=== PATIENT | female | born 1970 | race Caucasian/White ===

== ENCOUNTER → 2017-11-13 11:43 | Outpatient (CLI) | payer BC, SELFPAY ==
[2017-11-13 12:16] LABS: Absolute Lymphocyte Count 1.92 X10^3/ul (0.83-4.51); Absolute Neutrophil Count 3.3 X10^3/uL (2.0-7.7); Basophil# 0.01 X10^3/uL; Basophil% 0.2 % (0-1); Eosinophil# 0.07 X10^3/uL; Eosinophils% 1.2 % (0-5); Hemoglobin 13.6 g/dl (12.0-15.0); Lymphocyte # 1.92 X10^3/ul (4.0); Lymphocyte % 33.3 % (19-41); Mean Corp Hgb Conc 33.2 g/gl (32-36); Mean Corpuscular Hgb 27.9 pg (27.0-32.0); Mean Corpuscular Volume 84.2 fL (81-99); Mean Platelet Vol. 9.5 fl (6.2-12.0); Monocyte# 0.49 X10^3/uL; Monocyte% 8.5 % (0-10); Neutrophil # 3.26 X10^3/uL (2.7-7.7); Neutrophil % 56.6 % (47-70); Platelet Count 333 K/mm3 (150-450); RBC Distribution Width CV 13.8 % (11.6-14.6); RBC Distribution Width SD 42.3 fl (35.1-43.9); Red Blood Count 4.87 M/mm3 (4.2-5.4); White Blood Count 5.8 K/mm3 (4.4-11.0)
[2017-11-13 12:21] LABS: POSITIVE COUNT NO; POSITIVE DIFFERENTIAL NO; POSITIVE MORPHOLOGY NO
[2017-11-13 13:02] LABS: ALB/GLOB Ratio 0.8 RATIO (0.9-2.4); AST(SGOT) 16 U/L (15-37); Alanine Aminotransfer ALT/SGPT 12 U/L (13-56); Albumin, Serum 3.4 g/dL (3.2-5.0); Alkaline Phosphatase 87 U/L (45-117); Anion Gap 10 (5-15); BUN 16 mg/dL (7-18); BUN/Creat Ratio 23.9 RATIO (10-20); Calcium,Total 8.8 mg/dL (8.5-10.1); Chloride 105 mmol/L (98-107); Cholesterol 226 mg/dL (200); Creatinine, Serum 0.67 mg/dL (0.55-1.02); EST Glomerular Filtration Rate 100 mL/min (>60); Est Glom Filt Rate - Afr Amer 121 mL/min (>60); Glucose 85 mg/dL (74-106); High Density Lipoprotein 49 mg/dL; Potassium 4.7 mmol/L (3.5-5.1); Protein, Total 7.4 g/dL (6.4-8.2); Sodium Level 143 mmol/L (136-145); Thyroid Stim Hormone (TSH) 1.72 uIU/mL (0.358-3.74); Triglycerides 170 mg/dL; Very Low Density Lipoprotein 34 mg/dL (5-40)
== END ==
PROVIDERS: Family Provider Family Medicine; PCP Family Medicine; Visit Provider Family Medicine
DX: K59.09 Other constipation (principal); R53.83 Other fatigue; E78.5 Hyperlipidemia, unspecified
CPT/HCPCS: 36415; 80053; 80061; 84443; 85025

== ENCOUNTER → 2017-12-26 14:27 | Outpatient (CLI) | payer BC, SELFPAY ==
--- NOTE | 2017-12-26 14:29 | CT_ITS ---
STUDY: CT ABDOMEN AND PELVIS WITHOUT CONTRAST REASON FOR EXAM: Female, 47 years old. Possible kinked ureter on the right. RADIATION DOSAGE (If Supplied By Facility): CTDIvol = ( 10.97 ) mGy, DLP = ( 600.16 ) mGycm TECHNIQUE: Transaxial images were obtained from the dome of the diaphragm to the symphysis pubis without oral contrast, and without intravenous contrast. Sagittal and coronal images were reconstructed. Individualized dose optimization techniques were used for this CT. COMPARISON: X-ray abdomen and pelvis 02/20/2013 FINDINGS: Body wall soft tissues: No acute process. Osseous structures: No acute process. Inferior chest: No acute process. Hepatobiliary: Normal. Pancreas: No acute process. Spleen: Normal. Adrenal glands: Normal. Urogenital: Slight malrotation of the right kidney. There are 2 nonobstructing calyceal calculi of the right kidney in the mid polar and inferior pole calyces, the largest measuring 4.5 x 3 mm. There are no retained calculi in the left kidney. There is a simple appearing parapelvic cyst of the left kidney measuring 2 cm in diameter. Bilaterally nondilated collecting systems. Nondilated left ureter, normal course. Nondilated right ureter, normal course. Both right and left ureters pass under the gonadal veins in their proximal 3rd, normal anatomy. Normal urinary bladder, anteverted uterus, bilateral ovaries. Pelvic floor and sidewalls and retroperitoneum: No mass or adenopathy. Vasculature: No acute process. Stomach: No acute process. Small bowel and mesentery: No acute process. Large bowel: Normal appendix. Normal large bowel and rectum. Free fluid or free air: None. CT/Abdomen/Pelvis without Cont IMPRESSION: Malrotated right kidney. No evidence of ureteral obstruction or kinking. Nonobstructing calyceal calculi of the right kidney. None on the left. No evidence of recent calculus passage. No other acute abdominopelvic process. Electronically Signed: Chencho Garces, at 17:41 EDT Tel , Service support ,
== END ==
PROVIDERS: Family Provider Family Medicine; PCP Family Medicine; Referring Provider Family Medicine; Visit Provider Family Medicine
DX: N20.0 Calculus of kidney (principal)
CPT/HCPCS: 74176

== ENCOUNTER 2018-01-18 10:57 | Day surgery (SDC) | payer BC, SELFPAY ==
[2018-01-18] VITALS (13 sets, daily range): BP systolic 91–114; BP diastolic 59–80; PULSE 61–90; RESP 14–18; TEMP 36–37.3; O2SAT 92–100; BMI 30.1
[2018-01-18 11:23] LABS: Internal QC Validated? YES +Cl - CLEAR BKGD; Pregnancy, Urine Negative Negative
[2018-01-18 11:33] LABS: Mean Corp Hgb Conc 31.8 g/gl (32-36); Mean Corpuscular Hgb 27.6 pg (27.0-32.0); Mean Corpuscular Volume 86.8 fL (81-99); Mean Platelet Vol. 9.5 fl (6.2-12.0); Platelet Count 230 K/mm3 (150-450); RBC Distribution Width CV 14.1 % (11.6-14.6); RBC Distribution Width SD 44.1 fl (35.1-43.9); Red Blood Count 5.07 M/mm3 (4.2-5.4); White Blood Count 6.8 K/mm3 (4.4-11.0)
[2018-01-18 11:34] LABS: Scan Indicated on CBC? Y/N NO
--- NOTE | 2018-01-18 11:50 | EMB_PTH ---
PATIENT: EDVIN SOTO LOC: [facility] [place] U#:[id number] AGE/SX: 47/F ROOM: RE01/18/[address]: Dr. Cary Glass DO : 1970 BED: DIS: 01/18/2018 SPEC #: [id number] RECD: 01/18/18 15:56 STATUS: IRON CRISTINE #: [id number] JAK: 01/18/18 11:[address]: Cary Glass DEPT: SURGICAL PATHOLOGY RECD BY: Chencho Garcia ENTERED: 01/19/18 13:40 SP TYPE: ENDOM BX/C CHAU DR: Dr. Hector Martínez, Tissues: Endometrium, NOS Procedures: Surgery Specimen Level IV HEADER OPERATION: Hysteroscopy, D&C, Talia PRE-OP DIAGNOSIS: Menorrhagia TISSUE SUBMITTED: Endometrial curettings MICROSCOPIC DIAGNOSIS Endometrial curettings: Disordered proliferative endometrium. Fragments of benign ecto- and endocervical epithelium. SJ:shreyas 01/22/18 MICROSCOPIC DESCRIPTION Slides are reviewed. GROSS DESCRIPTION Received in fixative is one container labeled with the patient's name and designated endometrial curettings. The specimen consists of multiple irregular fragments of zheng soft tissue mixed with blood clot that in aggregate measure 4 x 3 x 0.3 cm. The entire specimen is submitted in two cassettes. / KATHRINE:shreyas 01/19/18 TC:5 CPT: 50610
--- NOTE | 2018-01-18 13:09 | DCINST_ITS ---
Discharge Diet: No Restrictions Discharge Activity: May not drive while taking narcotic pain medications., May Shower, - - No tub baths Return to work on:: 01/22/18 May resume sexual activity in: 1-2 weeks Weight Bearing Status: Weight bearing as tolerated Lifting Restrictions: None Call your doctor if you observe: Fever of 101 or Higher, Inability to urinate, Inability to have a bowel movement, Using more than one pad per hour, Shortness of breath, Dizziness, Chest pain, Increased palpitations (irregular heartbeat), Calf discomfort, Uncontrolled pain Allergies/Adverse Reactions: Allergies latex Allergy (Intermediate, Verified 01/12/18 14:39) rash Penicillins Allergy (Verified 01/12/18 14:39) Swelling Medications to take at Discharge Ferrous Sulfate [Iron] 325 mg PO DAILY 01/12/18 Magnesium Oxide [Magnesium] 500 mg PO DAILY 01/12/18 Primary Care Physician: Hector Martínez DO [Primary Care Provider] - Test Results: Test results from this visit will be discussed in further detail at your follow- up appointment, if applicable. Please Follow Up With: Cary Glass DO When: 1-2 weeks
--- NOTE | 2018-01-18 13:53 | EKG12_ITS ---
Test Reason : POSTOP Blood Pressure : / mmHG Vent. Rate : 071 BPM Atrial Rate : 071 BPM P-R Int : 164 ms QRS Dur : 082 ms QT Int : 438 ms P-R-T Axes : 056 025 032 degrees QTc Int : 475 ms Normal sinus rhythm Normal ECG When compared with ECG of 29-MAR-2017 15:53, No significant change was found Confirmed by CONNER QUINN, ALBER ([id number]), film editor supervisor NEYMAR SCHUSTER ([id number]) on 01/26/2018 2:31:30 PM Referred By: Cary Glass Confirmed By:ALBER PRIETO MD
--- NOTE | 2018-01-18 14:30 | PCM.OP.BLANK ---
Problem List (1) Menorrhagia Status: Acute Operative Report Date of Procedure: 01/18/18 Procedure: Hysteroscopy, D&C, Talia ablation Preop diagnosis: Menorrhagia Postop diagnosis: Menorrhagia Surgeon: Cary Glass DO Anesthesia: MAC Estimated blood loss: Minimal, less than 50 cc Specimens removed: Endometrial curettings Complications: None Findings: Normal uterine cavity Indications: Pt is a 47-year-old with a history of menorrhagia for 5-6 years. Her had a vasectomy. Discussed conservative treatment options for the menorrhagia and patient declined. Discussed uterine ablation and patient desired to proceed with uterine ablation. Reviewed risks, benefits, and alternatives of an ablation and patient was fully consented. Patient understands also that she should not become after an ablation, so if she has a change in partners she needs to call to discuss a tubal ligation for control. Procedure: Patient was taken to the operating room where MAC anesthesia was found to be adequate. She was prepped and draped in the dorsal lithotomy position using yellowfin stirrups. Bimanual exam noted a midline, mobile, nonenlarged uterus. A weighted speculum was placed to expose the cervix. A single-tooth tenaculum was placed on the anterior lip of the cervix. The uterus sounded to 9 cm. The cervical length was 4.5 cm. The cervix was serially dilated to accommodate the hysteroscope. The hysteroscope was then introduced into the uterine cavity and the uterus was distended with normal saline fluid. The cavity was examined and found to be normal without polyps. Bilateral tubal ostia were visualized. The scope was then removed. A sharp curettage was then introduced into the cavity and a curettage was performed. The sample was sent to pathology for review. The Talia device was then set to the correct cavity length. The device was introduced into the uterine cavity. After adequate burn, the device was removed. The single-tooth tenaculum was removed from the cervix and hemostasis was noted. The weighted speculum was removed from the vagina. Instrument counts were correct. The patient tolerated procedure well and was sent to recovery room in stable condition.
--- NOTE | 2018-01-18 15:05 | RAD_ITS ---
STUDY: X-RAY CHEST REASON FOR EXAM: Female, 47 years old. Upper abdominal and chest pain TECHNIQUE: PA and lateral views of the chest. COMPARISON: 03/29/2017 FINDINGS: The lungs are clear and expanded. There is no demonstrated pleural abnormality. Normal size heart. Normal mediastinum and nimesh. Normal visualized pulmonary arteries. Normal visualized aortic arch and descending thoracic aorta. Normal visualized thoracic spine. Normal visualized ribs, clavicles, and shoulders. There is no demonstrated abnormality of the visualized soft tissue structures of the upper abdomen. RAD/Chest PA and Lateral IMPRESSION: No acute pulmonary process Electronically Signed: Velasquez Stephen MD at 16:00 EST , Service support ,
[2018-01-18] MEDS: HYDROcodone Bitartrate/Apap 5/325 Tablet PO (15:29)
== END 2018-01-18 16:48 | disposition home or self-care (01) ==
LOC: SDC 10:58 → AC 10:59
PROVIDERS: Anesthesiology; Family Provider Family Medicine; PCP Family Medicine; Referring Provider Obstetrics & Gynecology; Visit Provider Obstetrics & Gynecology
PROC: 0U5B8ZZ Destruction of Endometrium, Via Natural or Artificial Opening Endoscopic (ICD-10-PCS; CPT 58558; principal; 2018-01-18 11:35)
DX: N92.1 Excessive and frequent menstruation with irregular cycle (principal); N93.9 Abnormal uterine and vaginal bleeding, unspecified; Z79.899 Other long term (current) drug therapy; Z87.442 Personal history of urinary calculi
CPT/HCPCS: 58563; 36415; 71046; 81025; 84484; 85027; 86850; 86900; 88305; 93005; J7120; J2405

== ENCOUNTER → 2018-03-05 11:02 | Outpatient (CLI) | payer BC, SELFPAY ==
[2018-02-21 16:41] VITALS: BMI 30.1
--- NOTE | 2018-03-05 11:05 | RAD_ITS ---
STUDY: X-RAY - LUMBAR SPINE REASON FOR EXAM: Female, 47 years old. Back pain. TECHNIQUE: 3 view(s) of the lumbar spine were obtained. COMPARISON: None FINDINGS: Normal lumbar lordosis. There is no substantial scoliosis. There is a normal alignment of the vertebrae. Normal vertebral bodies and endplates. There is multi-level degenerative disc disease with multi-level disc space narrowing. There is no evidence of acute fracture or loss of vertebral axial height. The soft tissue structures are unremarkable. RAD/Lumbar Spine 2 or 3 Views IMPRESSION: Degenerative changes of the spine, as detailed above. Electronically Signed: Abhi Carmen DO at 22:10 EST Tel [phone], Service support ,
--- NOTE | 2018-03-05 11:07 | RAD_ITS ---
STUDY: X-RAY - THORACIC SPINE REASON FOR EXAM: Female, 47 years old. Back pain, kidney stones TECHNIQUE: 3 view(s) of the thoracic spine were obtained. COMPARISON: None. FINDINGS: Normal kyphosis of the thoracic spine. There is 12 degrees of dextroscoliosis centered at T7. There is multilevel endplate spondylosis of the thoracic vertebrae. There is multilevel disc space narrowing of the thoracic spine. The soft tissue structures are unremarkable. RAD/Thoracic Spine 2 Views IMPRESSION: Degenerative disc disease and scoliosis. No compression fracture. Electronically Signed: Ricardo Conde MD at 13:19 EST , Service support ,
== END ==
PROVIDERS: Family Provider Family Medicine; PCP Family Medicine; Referring Provider Family Medicine; Visit Provider Family Medicine
DX: M54.5 Low back pain (principal); G89.29 Other chronic pain
CPT/HCPCS: 72070; 72100

== ENCOUNTER → 2019-05-02 11:38 | Outpatient (CLI) | payer BC, SELFPAY ==
[2019-05-02 11:13] VITALS: BMI 30.1
[2019-05-02 12:33] LABS: Absolute Lymphocyte Count 1.84 X10^3/uL (0.83-4.51); Absolute Neutrophil Count 3.7 X10^3/uL (2.0-7.7); Basophil# 0.02 X10^3/uL; Basophil% 0.3 % (0-1); Eosinophil# 0.08 X10^3/uL; Eosinophils% 1.3 % (0-5); Hematocrit 42.1 % (37-47); Hemoglobin 13.6 g/dL (12.0-15.0); Lymphocyte # 1.84 X10^3/ul (4.0); Lymphocyte % 29.8 % (19-41); Mean Corp Hgb Conc 32.3 g/dL (32-36); Mean Corpuscular Hgb 27.6 pg (27.0-32.0); Mean Corpuscular Volume 85.6 fL (81-99); Mean Platelet Vol. 9.6 fl (6.2-12.0); Monocyte# 0.48 X10^3/uL; Monocyte% 7.8 % (0-10); NRBC Flagged by Analyzer 0 % (0-5); Neutrophil # 3.74 X10^3/uL (2.7-7.7); Neutrophil % 60.5 % (47-70); Platelet Count 269 K/mm3 (150-450); RBC Distribution Width CV 13.2 % (11.6-14.6); RBC Distribution Width SD 40.9 fl (35.1-43.9); Red Blood Count 4.92 M/mm3 (4.2-5.4); White Blood Count 6.2 K/mm3 (4.4-11.0)
[2019-05-02 13:02] LABS: ALB/GLOB Ratio 0.9 RATIO (0.9-2.4); AST(SGOT) 15 U/L (15-37); Alanine Aminotransfer ALT/SGPT 14 U/L (13-56); Albumin, Serum 3.6 g/dL (3.2-5.0); Alkaline Phosphatase 89 U/L (45-117); Anion Gap 4 (5-15); BUN 15 mg/dL (7-18); BUN/Creat Ratio 22.9 RATIO (10-20); Calcium,Total 9.2 mg/dL (8.5-10.1); Chloride 107 mmol/L (98-107); Cholesterol 247 mg/dL (200); Creatinine, Serum 0.66 mg/dL (0.55-1.02); EST Glomerular Filtration Rate 102 mL/min (>60); Est Glom Filt Rate - Afr Amer 124 mL/min (>60); Glucose 71 mg/dL (74-106); High Density Lipoprotein 59 mg/dL; Potassium 4.3 mmol/L (3.5-5.1); Protein, Total 7.6 g/dL (6.4-8.2); Sodium Level 141 mmol/L (136-145); Triglycerides 218 mg/dL; Very Low Density Lipoprotein 44 mg/dL (5-40)
== END ==
PROVIDERS: PCP Family Medicine; Referring Provider Family Medicine; Visit Provider Family Medicine
DX: K59.09 Other constipation (principal); E78.5 Hyperlipidemia, unspecified
CPT/HCPCS: 36415; 80053; 80061; 85025

== ENCOUNTER → 2020-06-09 13:52 | Outpatient (CLI) | payer OTHER, SELFPAY ==
[2020-06-09 13:15] VITALS: BMI 29.3
[2020-06-09 15:38] LABS: ALB/GLOB Ratio 0.9 RATIO (0.9-2.4); AST(SGOT) 17 U/L (15-37); Alanine Aminotransfer ALT/SGPT 14 U/L (13-56); Albumin, Serum 3.3 g/dL (3.2-5.0); Alkaline Phosphatase 100 U/L (45-117); Anion Gap 4 (5-15); BUN 15 mg/dL (7-18); BUN/Creat Ratio 21.1 RATIO (10-20); Calcium,Total 8.7 mg/dL (8.5-10.1); Chloride 106 mmol/L (98-107); Cholesterol 194 mg/dL (200); Creatinine, Serum 0.71 mg/dL (0.55-1.02); EST Glomerular Filtration Rate 92 mL/min (>60); Est Glom Filt Rate - Afr Amer 112 mL/min (>60); Globulin 3.7 g/dL (2.2-4.2); Glucose 81 mg/dL (74-106); High Density Lipoprotein 45 mg/dL; Potassium 3.2 mmol/L (3.5-5.1); Sodium Level 141 mmol/L (136-145); T4 Free Direct 1.13 ng/dL (0.76-1.46); Triglycerides 116 mg/dL; Very Low Density Lipoprotein 23 mg/dL (5-40)
== END ==
PROVIDERS: PCP Family Medicine; Referring Provider Family Medicine; Visit Provider Family Medicine
DX: K59.09 Other constipation (principal); E78.5 Hyperlipidemia, unspecified; F41.8 Other specified anxiety disorders
CPT/HCPCS: 36415; 80053; 80061; 84439

== ENCOUNTER → 2020-09-10 07:04 | Outpatient (CLI) | payer OTHER, SELFPAY ==
[2020-06-18 09:18] VITALS: BMI 30.1
--- NOTE | 2020-07-14 07:00 | HP_ITS ---
Intake Vital Signs 06/18/20 Height 5 ft 8 in 06/18/20 Weight: 198 lb 06/18/20 BMI 30.1 06/18/20 BP 105/74 06/18/20 Blood Pressure Location Lt brachial 06/18/20 Position Sitting 06/18/20 Respiration 16 06/18/20 Pulse 97 06/18/20 Pulse Source Monitor 06/18/20 Temp 97.6 F L 06/18/20 Temp Source Temporal 06/18/20 Pulse Oximetry (%) 96 06/18/20 Oxygen Delivery Method room air Intake Visit Reasons: CSCOPE, HISTORY OF CONSTIPATION Chief Complaint: Cscope- hx of chronic constipation Ore Grader Required: No Is patient in pain?: No Allergies latex Allergy (Intermediate, Verified 06/18/20 09:19) rash Penicillins Allergy (Verified 06/18/20 09:19) Swelling Medications Magnesium Oxide [Magnesium] 500 mg PO DAILY 01/12/18 [History Confirmed 06/18/20] nitrofurantoin monohydrate/macrocrystals 100 mg capsule 100 mg PO BID cap 06/18/20 [History Confirmed 06/18/20] [facility] Medical History Anxiety (Acute) Sleep apnea in adult (Chronic) Recurrent cold sores (Acute) Menorrhagia (Acute) Sleep disturbance, unspecified (Chronic) Encounter for preventative adult health care examination (Chronic) Anxiety about health (Chronic) Chronic constipation (Chronic) Kidney stones (Acute) Chronic headaches (Chronic) Surgical History History of kidney surgery (Acute) History of colonoscopy (Acute) History of endometrial ablation (Acute) Family History Mother Breast cancer Uncle Colon cancer Father Cancer Social History (Updated 06/18/20 @ 10:[address] Declan Farooq MD) Smoking Status: Never smoker second hand exposure: No alcohol intake: current alcohol intake frequency: holidays/special occasions only substance use type: does not use caffeine: Yes what type of physical activity do you participate in: none frequency: does not exercise HPI HPI HPI: EDVIN SOTO, is a 50 F who presents to the office today for HPI HPI Surgical H&P: Yes HPI: EDVIN SOTO, is a 50 F who presents to the office today for screening. The patient has chronic constipation but reports this is nothing new. The patient does not have immediate family history of colon cancer. She only has history of colon cancer in her uncle. She is not having any abdominal pain or blood in her stool. Her last colonoscopy was 10 to 11 years ago. ROS General General: No weight change, appetite, fatigue, colon cancer, breast cancer or weakness HEENT HEENT: No difficulty swallowing, eye injury, eye surgery, swollen glands or hoarseness Endo Endocrine: No thyroid disease, diabetes mellitus, thyroid cancer, Hair loss, heat intolerance or cold intolerance Skin Skin: No rash or changing moles Musc Musculoskeletal: No back problems, arthritis, rheumatoid arthritis, gout or joint pain Cardio Cardiovascular: No murmur, pacemaker, heart disease, atrial fibrillation, high blood pressure, heart attack, heart stent, palpitations, shortness of breat with exertion or chest pain Psych Psychiatric: No depression, anxiety or hearing voices Resp Respiratory: No shortness of breath, Yes sleep apnea, No cough, No COPD, No asthma, No emphysema, No wheezing Gastro Gastrointestinal: No abdominal pain, No nausea or vomiting, No diarrhea, Yes constipation, No blood in stool, No acid reflux, No hemorrhoids, No ulcers, No gallbladder problem, No black,tarry stools Marcelino Hematologic: No blood thinners, No blood disorders, No bleeding, No anemia, No blood clots Neuro Neurologic: No system reviewed and no additional complaints, except as docu, No as per HPI, No abnormal walking, No abnormal hearing, No abnormal movements, No abnormal speech, No behavioral changes, No burning sensations, No confusion, No seizure-like activity, No unsteadiness, No dizziness, No localized weakness, No frequent falls, No headache(s), No lack of coordination, No loss of vision, No memory loss, No numbness, No other visual disturbances, No radiating pain, No restless legs, No sensory deficit, No fainting, No tingling, No tremor(s), No weakness, No other Exam Const General: cooperative Orientation: alert, oriented x3 Resp Effort & Inspection: normal respiratory effort Auscultation: clear to auscultation bilaterally Cardio Rate: regular rate Rhythm: regular rhythm Heart Sounds: no murmurs GI Inspection: non-distended Palpation: soft, nontender Assessment & Plan Problems 1. Screen for colon cancer Z12.11 Plan I explained endoscopy in detail to the patient. I explained the risks including but not limited to stroke or heart attack with anesthesia, perforation of the GI tract, bleeding, infection. I explained that any of these could necessitate further emergency surgery. The patient understands and all questions were answered sufficiently. The patient wishes to proceed with procedure. Declan Farooq MD Pager: [facility] [address] [place] [address] [address] [place] [address] Office: Orders Orders: Colonoscopy Today Z12.11 Coding Level of Care Code No Charge Diagnoses Screen for colon cancer Z12.11
== END ==
PROVIDERS: PCP Family Medicine; Referring Provider Family Medicine; Visit Provider Surgery
DX: Z01.818 Encounter for other preprocedural examination (principal); Z12.11 Encounter for screening for malignant neoplasm of colon; K59.09 Other constipation; Z20.822 Contact with and (suspected) exposure to COVID-19
CPT/HCPCS: 87426; C9803

== ENCOUNTER 2020-10-17 05:20 | Emergency (ER) | payer OTHER, SELFPAY ==
[2020-06-18 09:18] VITALS: BMI 30.1
[2020-10-17 05:21] VITALS: BP 119/82; PULSE 94; RESP 18; TEMP 36.4; O2SAT 95; BMI 28.5
--- NOTE | 2020-10-17 06:00 | RAD_ITS ---
HISTORY: pain EXAMINATION/TECHNIQUE: XR Wrist Min 3 Views: Left COMPARISON: None FINDINGS: SOFT TISSUES: No significant soft tissue swelling. No radiopaque foreign body identified. BONES/JOINTS: No acute fracture or subluxation. Normal alignment. Preservation of the joint spaces. No suspicious osseous lesion. RAD/Wrist min 3 Views IMPRESSION: Negative left wrist. at 0728 Reported and signed by: Savage Layton MD Electronically Signed: Savage Layton MD at 7:27 EDT Tel , Service support ,
--- NOTE | 2020-10-17 06:00 | EX.ED.UPPERE ---
HPI History of Present Illness Chief Complaint: Other, Pain/Inj Informant: patient Onset/Context/Timing Onset: Yesterday (around 10 hrs prior to eval) Context: Gradual Onset Timing: Continuous Quality of Pain: Aching and Throbbing Location: L wrist Current Severity: Severe Maximum Severity: Severe Worsened by: any little movement, anything touching wrist at volar aspect Relieved by: remaining still Associated Symptoms Associated Symptoms: Negative for Parasthesia, Weakness and Loss of Funtion Narrative Narrative: Gradual onset left wrist pain that has become severe. No injury that she can recall. No systemic symptoms or fevers. No history of gout and no other joints affected at this time. She is healthy for the most part and takes no prescription medications daily. [facility] Medical History Alcohol use Anxiety Anxiety about health Chronic constipation Chronic headaches CPAP (continuous positive airway pressure) dependence Encounter for preventative adult health care examination Kidney stones Menorrhagia Migraine headache Non-smoker Recurrent cold sores Restless legs Sleep apnea in adult Sleep disturbance, unspecified Home Medications magnesium oxide 500 mg PO DAILY 01/12/18 [History Last Taken Unknown] hydrocodone-acetaminophen 1 tab PO Q4H PRN PRN 2 Days #10 tablet 10/17/20 [Rx Last Taken Unknown] ondansetron 8 mg PO Q8H PRN PRN #14 tab 10/17/20 [Rx Last Taken Unknown] prednisone 40 mg PO DAILY #10 tab 10/17/20 [Rx Last Taken Unknown] Allergy/AdvReac Type Severity Reaction Status Date / Time latex Allergy Intermediate rash Verified 10/17/20 05:25 Penicillins Allergy Swelling Verified 10/17/20 05:25 Family History Mother Breast cancer Uncle Colon cancer Father Cancer Surgical History History of colonoscopy History of endometrial ablation History of kidney surgery Social History Smoking Status: Never smoker second hand exposure: No alcohol intake: current alcohol intake frequency: holidays/special occasions only substance use type: does not use caffeine: Yes what type of physical activity do you participate in: none frequency: does not exercise ROS ROS ED Constitutional Constitutional ED: Denies chills or fever(s) Musculoskeletal Musculoskeletal: Reports extremity pain; Denies neck pain Integumentary Denies Abrasions, rash or wounds Neurologic Neurologic: Denies paresthesias or weakness EXAM Physical Exam Const Vital Signs: 10/17/20 05:21 Temperature 97.5 F L Temperature Source Temporal Pulse Rate 94 Respiratory Rate 18 Blood Pressure 119/82 H Blood Pressure Mean 94 Pulse Ox 95 Oxygen Delivery Method Room Air Positive well nourished and well developed General Appearance ED: well developed and NAD Neck full ROM and supple Back/Spine normal ROM and normal to inspection Extremity normal to inspection Extremity Narrative: Limited range of motion left wrist due to pain with any little movement including supination/pronation. No excessive warmth at the wrist compared with surrounding areas, no erythema or other skin abnormalities. Objectively wrist appears normal without obvious swelling. Diffusely tender around the joint/carpus, except nontender dorsally. No other areas of tenderness left upper extremity. Neuro oriented x3, no focal motor deficits and no sensory deficits noted Sensorium / Orientation: alert Psych mental status grossly normal and thought process normal Skin no wounds General Skin Exam: Negative for erythema Rashes: no rashes MDM MDM MDM Narrative Medical decision making narrative: On my interpretation 3 view x-ray series of the left wrist shows no acute abnormality. Labs show the lack of a leukocytosis, slightly elevated CRP normal ESR, her uric acid is within normal limits. This does not rule out the possibility of gout, pseudogout also in the differential diagnosis. I think crystal induced arthritis is more likely here than a septic arthritis in an immunocompetent relatively healthy 58-year-old female nondiabetic who has had no injury, foreign body, or fevers to suggest infection. Also, she did have some improvement with colchicine here in the emergency department. Therefore, we discussed the pros and cons of empirically trying prednisone, we also discussed arthrocentesis. She does not want to undergo arthrocentesis at this time, and she is comfortable with the pros and cons of steroids, discontinuing and returning immediately if it makes her pain worse or she develops a fever. Prior to discharge she was also given a wrist splint to help with pain, dose of ibuprofen, and started on prednisone. Lab Data Attestation: I reviewed the patient's lab results. Labs: Laboratory Tests 08/14/21 08/14/21 Range/Units 06:18 06:18 WBC 6.4 (4.4-11.0) K/mm3 RBC 4.73 (4.2-5.4) M/mm3 Hgb 12.9 (12.0-15.0) g/dL Hct 39.4 (37-47) % MCV 83.3 (81-99) fL MCH 27.3 (27.0-32.0) pg MCHC 32.7 (32-36) g/dL RDW Std Deviation 39.6 (35.1-43.9) fl RDW Coeff of Huma 13.2 (11.6-14.6) % Plt Count 260 (150-450) K/mm3 MPV 9.5 (6.2-12.0) fl Immature Gran % (Auto) 0.300 (0.0-0.9) % Neut % (Auto) 61.1 (47-70) % Lymph % (Auto) 27.8 (19-41) % [place] % (Auto) 8.9 (0-10) % Eos % (Auto) 1.6 (0-5) % Baso % (Auto) 0.3 (0-1) % Absolute Neuts (auto) 3.9 (2.0-7.7) X10^3/uL Absolute Lymphs (auto) 1.78 (0.83-4.51) X10^3/uL Nucleated RBC % 0 (0-5) % ESR 22 (0-30) mm/hr Sodium 139 (136-145) mmol/L Potassium 4.2 (3.5-5.1) mmol/L Chloride 106 (98-107) mmol/L Carbon Dioxide 28.0 (21.0-32.0) mmol/L Anion Gap 5 (5-15) BUN 17 (7-18) mg/dL Creatinine 0.58 (0.55-1.02) mg/dL Estim Creat Clear Calc 121.27 ml/min Est GFR (MDRD) Af Amer 141 (>60) mL/min Est GFR (MDRD) Non-Af 117 (>60) mL/min BUN/Creatinine Ratio 29.3 H (10-20) RATIO Glucose 101 (74-106) mg/dL Uric Acid 5.0 (2.6-6.0) mg/dL Calcium 8.7 (8.5-10.1) mg/dL C-React Prot Ext Range 10.60 H (0.0-3.0) mg/L Radiography Diagnostic Testing: HISTORY: pain EXAMINATION/TECHNIQUE: XR Wrist Min 3 Views: Left COMPARISON: None FINDINGS: SOFT TISSUES: No significant soft tissue swelling. No radiopaque foreign body identified. BONES/JOINTS: No acute fracture or subluxation. Normal alignment. Preservation of the joint spaces. No suspicious osseous lesion. RAD/Wrist min 3 Views IMPRESSION: Negative left wrist. at 0728 Reported and signed by: Savage Layton MD Discharge Plan Triage Chief Complaint: Other, Pain/Inj ED Provider: Rg Dockery Dx/Rx/DC Orders Clinical Impression: Arthritis of left wrist Instructions: ED Gout Prescriptions: New prednisone 20 mg tablet 40 mg PO DAILY Qty: 10 RF: 0 hydrocodone-acetaminophen 5-325 mg tablet 1 tab PO Q4H PRN PRN (Reason: Pain) 2 Days Qty: 10 RF: 0 ondansetron 4 mg tablet,disintegrating 8 mg PO Q8H PRN PRN (Reason: Nausea) Qty: 14 RF: 0 No Action magnesium oxide 500 MG capsule 500 mg PO DAILY RF: 0 Primary Care Provider: Hector Martíenz Referrals: Hector Martínez, [Primary Care Provider] - 5-7 Days Activity Restrictions/Additional Instructions: If prednisone starts making your wrist hurt worse or you develop a fever, discontinue that medication and return to the ER immediately. Disposition Disposition: Home, Self Care
[2020-10-17] MEDS: Ondansetron ODT 4 MG Tablet 8 MG PO (06:16)
[2020-10-17 06:34] LABS: Erythrocyte Sedimentation Rate 22 mm/hr (0-30)
[2020-10-17] MEDS: Colchicine 0.6 MG TABLET 1.2 MG PO (06:35)
[2020-10-17 06:37] LABS: Absolute Lymphocyte Count 1.78 X10^3/uL (0.83-4.51); Absolute Neutrophil Count 3.9 X10^3/uL (2.0-7.7); Basophil# 0.02 X10^3/uL; Basophil% 0.3 % (0-1); Eosinophils% 1.6 % (0-5); Hematocrit 39.4 % (37-47); Hemoglobin 12.9 g/dL (12.0-15.0); Lymphocyte # 1.78 X10^3/ul (0.83-4.51); Lymphocyte % 27.8 % (19-41); Mean Corp Hgb Conc 32.7 g/dL (32-36); Mean Corpuscular Hgb 27.3 pg (27.0-32.0); Mean Corpuscular Volume 83.3 fL (81-99); Mean Platelet Vol. 9.5 fl (6.2-12.0); Monocyte# 0.57 X10^3/uL; Monocyte% 8.9 % (0-10); NRBC Flagged by Analyzer 0 % (0-5); Neutrophil # 3.92 X10^3/uL (2.7-7.7); Neutrophil % 61.1 % (47-70); Platelet Count 260 K/mm3 (150-450); RBC Distribution Width CV 13.2 % (11.6-14.6); RBC Distribution Width SD 39.6 fl (35.1-43.9); Red Blood Count 4.73 M/mm3 (4.2-5.4); White Blood Count 6.4 K/mm3 (4.4-11.0)
[2020-10-17 06:49] LABS: Anion Gap 5 (5-15); BUN 17 mg/dL (7-18); BUN/Creat Ratio 29.3 RATIO (10-20); Calcium,Total 8.7 mg/dL (8.5-10.1); Chloride 106 mmol/L (98-107); Creatinine, Serum 0.58 mg/dL (0.55-1.02); EST Glomerular Filtration Rate 117 mL/min (>60); Est Glom Filt Rate - Afr Amer 141 mL/min (>60); Estimated Creatinine Clearance 121.27 ml/min; Glucose 101 mg/dL (74-106); Potassium 4.2 mmol/L (3.5-5.1); Sodium Level 139 mmol/L (136-145)
[2020-10-17] MEDS: predniSONE 20 MG Tablet 60 MG PO (07:44)
[2020-10-17] MEDS: Ibuprofen 600 MG Tablet PO (07:44)
== END 2020-10-17 08:15 | disposition home or self-care (01) ==
PROVIDERS: Emergency Provider Emergency Medicine; PCP Family Medicine
DX: M19.032 Primary osteoarthritis, left wrist (principal)
CPT/HCPCS: 73110; 80048; 84550; 85025; 85652; 86140; 99284

== ENCOUNTER → 2022-01-04 | Outpatient (CLI) | payer OTHER, SELFPAY ==
[2022-01-04 16:41] LABS: Basophil# 0.03 X10^3/uL; Basophil% 0.5 % (0-1); Eosinophil# 0.07 X10^3/uL; Eosinophils% 1.1 % (0-5); Hemoglobin 13.5 g/dL (12.0-15.0); Lymphocyte % 29.2 % (19-41); Mean Corp Hgb Conc 32.9 g/dL (32-36); Mean Corpuscular Hgb 28.1 pg (27.0-32.0); Mean Corpuscular Volume 85.2 fL (81-99); Mean Platelet Vol. 10.3 fl (6.2-12.0); Monocyte# 0.46 X10^3/uL; Monocyte% 7.1 % (0-10); NRBC Flagged by Analyzer 0 % (0-5); Neutrophil # 4.04 X10^3/uL (2.7-7.7); Neutrophil % 61.9 % (47-70); Platelet Count 290 K/mm3 (150-450); RBC Distribution Width CV 13.7 % (11.6-14.6); RBC Distribution Width SD 42.7 fl (35.1-43.9); Red Blood Count 4.81 M/mm3 (4.2-5.4); White Blood Count 6.5 K/mm3 (4.4-11.0)
[2022-01-04 16:54] LABS: ALB/GLOB Ratio 0.9 RATIO (0.9-2.4); AST(SGOT) 15 U/L (15-37); Alanine Aminotransfer ALT/SGPT 12 U/L (13-56); Albumin, Serum 3.5 g/dL (3.2-5.0); Alkaline Phosphatase 110 U/L (45-117); Anion Gap 5 (5-15); BUN 16 mg/dL (7-18); BUN/Creat Ratio 19.1 RATIO (10-20); Calcium,Total 9.2 mg/dL (8.5-10.1); Chloride 106 mmol/L (98-107); Cholesterol 216 mg/dL (200); Creatinine, Serum 0.84 mg/dL (0.55-1.02); EST Glomerular Filtration Rate 76 mL/min (>60); Est Glom Filt Rate - Afr Amer 92 mL/min (>60); Globulin 3.9 g/dL (2.2-4.2); Glucose 92 mg/dL (74-106); High Density Lipoprotein 56 mg/dL; Potassium 4.2 mmol/L (3.5-5.1); Protein, Total 7.4 g/dL (6.4-8.2); Sodium Level 139 mmol/L (136-145); Triglycerides 160 mg/dL; Very Low Density Lipoprotein 32 mg/dL (5-40)
== END | disposition home or self-care (01) ==
LOC: BIMLAB 15:45
PROVIDERS: PCP Family Medicine; Visit Provider Family Medicine
DX: K59.09 Other constipation (principal)
CPT/HCPCS: 36415; 80053; 80061; 85025

== ENCOUNTER → 2022-01-31 | Outpatient (CLI) | payer OTHER, SELFPAY ==
--- NOTE | 2022-01-31 11:15 | RAD_ITS ---
INDICATION: WRIST PAIN EXAMINATION/TECHNIQUE: X-RAY - LEFT XR Wrist 2 Views 2 VIEWS COMPARISON: Right wrist on same day. FINDINGS: SOFT TISSUES: No soft tissue swelling or gas. No radiopaque foreign body. BONES/JOINTS: No acute fracture or subluxation.. Normal alignment. narrow scapholunate interval with possible fibrous or partial osseous coalition.. No sclerotic or destructive changes observed. 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 Electronically Signed: Jeremy Quiñonez MD at 6:21 EST ,
--- NOTE | 2022-01-31 11:15 | RAD_ITS ---
INDICATION: wrist pain EXAMINATION/TECHNIQUE: X-RAY - RIGHT XR Wrist 2 Views 2 VIEWS COMPARISON: Left wrist radiograph on same day. FINDINGS: SOFT TISSUES: No soft tissue swelling or gas. No radiopaque foreign body. BONES/JOINTS: No acute fracture or subluxation.. Normal alignment. Preservation of the joint space.. No sclerotic or destructive changes observed. RAD/Wrist 2 Views IMPRESSION: Negative. Electronically Signed: Jeremy Quiñonez MD at 6:22 EST ,
== END | disposition home or self-care (01) ==
LOC: RAD 11:12
PROVIDERS: PCP Family Medicine; Referring Provider Family Medicine; Visit Provider Family Medicine
DX: M25.531 Pain in right wrist (principal); M25.532 Pain in left wrist
CPT/HCPCS: 73100

== ENCOUNTER → 2022-02-10 | Outpatient (CLI) | payer OTHER, SELFPAY ==
--- NOTE | 2022-02-10 08:01 | BI_ITS ---
MAMMOGRAPHY - BILATERAL SCREENING REASON FOR EXAM: Female, 51 years old. Routine annual screening examination. PERTINENT HISTORY: Mother with breast cancer. TECHNIQUE: Digital bilateral breast castillo (3D mammographic acquisition) in the CC and MLO projections. 2-D mediolateral oblique (MLO) and craniocaudad (CC) views of both breasts were obtained. CAD: Full Field Digital Mammography with Computer Added Detection was performed. COMPARISON: Comparison is made with prior EXAMINATION dated 04/15/2019. FINDINGS: Breast Composition: The breasts are heterogeneously dense, which may obscure small masses. There are no dominant masses or suspicious calcifications. Stable small benign-appearing bilateral axillary lymph nodes. No other significant abnormalities are identified. There has been no significant change since the prior study. BI/SCRN MAMM (CAD)W/CASTILLO BILAT IMPRESSION: Stable bilateral screening mammogram. Yearly follow-up mammogram recommended. (A) ASSESSMENT CATEGORY: BIRADS Category 2: Benign. A letter regarding these results will be sent to the patient by the facility within 30 days. Approximately 10% of breast cancers are not detected by mammography. A normal mammogram should not delay biopsy of a clinically suspicious abnormality. [id number] Electronically Signed: Khoa Morales MD at 8:39 EST ,
== END | disposition home or self-care (01) ==
LOC: OPBI 08:01
PROVIDERS: PCP Family Medicine; Visit Provider Family Medicine
DX: Z12.31 Encounter for screening mammogram for malignant neoplasm of breast (principal); Z80.3 Family history of malignant neoplasm of breast
CPT/HCPCS: 77063; 77067

== ENCOUNTER 2022-06-07 15:12 | Emergency (ER) | payer OTHER, SELFPAY ==
[2022-06-07 15:13] VITALS: BP 122/82; PULSE 88; RESP 18; TEMP 36.2; O2SAT 97; BMI 27.1
--- NOTE | 2022-06-07 15:25 | RAD_ITS ---
STUDY: X-RAY CHEST REASON FOR EXAM: Female, 52 years old. chest pain TECHNIQUE: Single PA view of the chest. COMPARISON: 01/18/2018 FINDINGS: The lungs are clear and expanded. There is no demonstrated pleural abnormality. Normal size heart. Normal mediastinum and nimesh. Normal visualized pulmonary arteries. Normal visualized aortic arch and descending thoracic aorta. Normal visualized thoracic spine. Normal visualized ribs, clavicles, and shoulders. There is no demonstrated abnormality of the visualized soft tissue structures of the upper abdomen. RAD/Chest 1 View (Portable) IMPRESSION: No evidence of acute cardiopulmonary process. Electronically Signed: Stephon Stokes DO at 16:26 EDT ,
--- NOTE | 2022-06-07 15:51 | EDS_ITS ---
HPI History of Present Illness Chief Complaint: Chest Pain Narrative Narrative: 52-year-old female presenting with chest pain. She states that it is mild but it feels like pressure. It radiates to the left arm. Is been constant since early this morning. She does complain of some intermittent lightheadedness. She states recently she moved and noticed lightheadedness then. She was about a month ago. Patient denies any cardiac history. No DVT/PE risk factors. PFSH PFSH Medical History Alcohol use Anxiety Anxiety about health Chronic constipation Chronic headaches CPAP (continuous positive airway pressure) dependence Encounter for preventative adult health care examination Kidney stones Menorrhagia Migraine headache Non-smoker Recurrent cold sores Restless legs Sleep apnea in adult Sleep disturbance, unspecified Home Medications NK 01/04/22 [History Last Taken Unknown] Allergy/AdvReac Type Severity Reaction Status Date / Time latex Allergy Intermediate rash Verified 01/04/22 15:10 Penicillins Allergy Swelling Verified 01/04/22 15:10 Family History Mother Breast cancer Uncle Colon cancer Father Cancer Surgical History History of colonoscopy History of endometrial ablation History of kidney surgery Social History Smoking Status: Never smoker second hand exposure: No alcohol intake: current alcohol intake frequency: holidays/special occasions only substance use type: does not use caffeine: Yes what type of physical activity do you participate in: none frequency: does not exercise ROS ROS ED Constitutional Constitutional ED: Denies chills or fever(s) Eyes Eyes: Denies none or blurry vision ENT ENT ED: Denies rhinorrhea or sore throat Cardiovascular Cardiovascular: Reports chest pain Respiratory/Chest Respiratory/Chest: Reports dyspnea and dyspnea on exertion; Denies cough Gastrointestinal Gastrointestinal: Denies abdominal pain or nausea Genitourinary Genitourinary ED: Denies dysuria or hematuria Musculoskeletal Musculoskeletal: Denies arthralgias or back pain Integumentary Denies abscess Neurologic Neurologic: Denies headache(s) Psychiatric Psychiatric: Denies anxiety or depression EXAM Physical Exam Const Vital Signs: 06/07/22 15:13 06/07/22 15:24 06/07/22 15:30 Temperature 97.1 F L Temperature Source Temporal Pulse Rate 88 Respiratory Rate 18 Respiratory Effort Normal Blood Pressure 122/82 H Blood Pressure Mean 95 Pulse Ox 97 Oxygen Delivery Method Room Air Room Air 06/07/22 16:12 Temperature Temperature Source Pulse Rate 66 Respiratory Rate 14 Respiratory Effort Blood Pressure 134/78 H Blood Pressure Mean 96 Pulse Ox 99 Oxygen Delivery Method Room Air Positive well nourished General Appearance ED: NAD HEENT Reports moist mucous membranes Eyes PERRL and EOMs intact bilaterally Chest Wall inspection of chest normal Resp normal respiratory effort and clear to auscultation bilaterally Auscultation: Negative for rales, rhonchi or wheezes Cardio regular rate and regular rhythm Neuro oriented x3 and CN's II-XII intact bilaterally Psych mental status grossly normal Heart Score History: Slightly/Non-Suspicious ECG: Normal Age: >45 - <65 years Risk Factors: No Risk Factors Troponin: </= Normal Limit Score: 1 MDM MDM MDM Narrative Medical decision making narrative: Patient presenting with chest pain. She has had this all day greater than 8 hours EKG on my interpretation shows a normal sinus rhythm with a ventricular rate of 71 bpm without sign of ischemic change or dysrhythmia. Chest x-ray on my interpretation shows no acute process. Radiology services agrees. CBC and BMP unremarkable. High-sensitivity troponin is less than 8:03 hours of pain and I do not believe she needs any repeat lab work. Patient PERC negative. At this point I feel patient stable for outpatient follow-up. She is counseled on r eturn precautions. Impression: 1. Chest pain Lab Data Labs: Laboratory Results - last 24 hr 06/07/22 06/07/22 15:30 15:30 WBC 6.1 RBC 4.83 Hgb 13.5 Hct 41.4 MCV 85.7 MCH 28.0 MCHC 32.6 RDW Std Deviation 42.3 RDW Coeff of Huma 13.5 Plt Count 291 MPV 9.6 Immature Gran % (Auto) 0.300 Neut % (Auto) 58.7 Lymph % (Auto) 30.9 [place] % (Auto) 7.8 Eos % (Auto) 1.8 Baso % (Auto) 0.5 Absolute Neuts (auto) 3.6 Absolute Lymphs (auto) 1.87 Nucleated RBC % 0 Sodium 139 Potassium 3.8 Chloride 107 Carbon Dioxide 27.0 Anion Gap 5 BUN 21 H Creatinine 0.91 Estim Creat Clear Calc 75.58 Est GFR (MDRD) Af Amer 83 Est GFR (MDRD) Non-Af 69 BUN/Creatinine Ratio 23.1 H Glucose 94 Calcium 9.3 Troponin I High Sens < 3 L Radiography Diagnostic Testing: Clinical Impression(s) from Imaging Studies Chest X-Ray 06/07/22 15:25 IMPRESSION: No evidence of acute cardiopulmonary process. Electronically Signed: Stephon Stokes DO at 16:26 EDT Reading Location ID and State: [facility] / [place] , Service support , Discharge Plan Triage Chief Complaint: Chest Pain ED Provider: Elliot Burdick Dx/Rx/DC Orders Instructions: ED Chest Pain, Noncardiac Prescriptions: No Action NK Primary Care Provider: Hector aMrtínez Referrals: Hector Martínez DO [Primary Care Provider] - Disposition Disposition: Home, Self Care
[2022-06-07 16:05] LABS: Absolute Lymphocyte Count 1.87 X10^3/uL (0.83-4.51); Absolute Neutrophil Count 3.6 X10^3/uL (2.0-7.7); Basophil# 0.03 X10^3/uL; Basophil% 0.5 % (0-1); Eosinophil# 0.11 X10^3/uL; Eosinophils% 1.8 % (0-5); Hematocrit 41.4 % (37-47); Hemoglobin 13.5 g/dL (12.0-15.0); Lymphocyte # 1.87 X10^3/ul (0.83-4.51); Lymphocyte % 30.9 % (19-41); Mean Corp Hgb Conc 32.6 g/dL (32-36); Mean Corpuscular Volume 85.7 fL (81-99); Mean Platelet Vol. 9.6 fl (6.2-12.0); Monocyte# 0.47 X10^3/uL; Monocyte% 7.8 % (0-10); NRBC Flagged by Analyzer 0 % (0-5); Neutrophil # 3.55 X10^3/uL (2.7-7.7); Neutrophil % 58.7 % (47-70); Platelet Count 291 K/mm3 (150-450); RBC Distribution Width CV 13.5 % (11.6-14.6); RBC Distribution Width SD 42.3 fl (35.1-43.9); Red Blood Count 4.83 M/mm3 (4.2-5.4); White Blood Count 6.1 K/mm3 (4.4-11.0)
[2022-06-07 16:12] VITALS: BP 134/78; PULSE 66; RESP 14; O2SAT 99
[2022-06-07 16:34] LABS: Anion Gap 5 (5-15); BUN 21 mg/dL (7-18); BUN/Creat Ratio 23.1 RATIO (10-20); Calcium,Total 9.3 mg/dL (8.5-10.1); Chloride 107 mmol/L (98-107); Creatinine, Serum 0.91 mg/dL (0.55-1.02); EST Glomerular Filtration Rate 69 mL/min (>60); Est Glom Filt Rate - Afr Amer 83 mL/min (>60); Estimated Creatinine Clearance 75.58 ml/min; Glucose 94 mg/dL (74-106); Potassium 3.8 mmol/L (3.5-5.1); Sodium Level 139 mmol/L (136-145); Troponin-I HS (w/2H Reflex) < 3 pg/mL (3.0-54.0)
[2022-06-07 17:33] VITALS: BP 134/78; PULSE 78; RESP 16; TEMP 36.6; O2SAT 99
[2022-06-07 17:59] LABS: Reflex Troponin-HS? (from REC) Y
== END 2022-06-07 17:53 | disposition home or self-care (01) ==
PROVIDERS: Emergency Provider Student in an Organized Health Care Education/Training Program; PCP Family Medicine; Visit Provider Student in an Organized Health Care Education/Training Program
DX: R07.9 Chest pain, unspecified (principal)
CPT/HCPCS: 71045; 80048; 84484; 85025; 93005; 99284

== ENCOUNTER → 2022-06-09 | Outpatient (CLI) | payer OTHER, SELFPAY ==
[2022-06-09 15:05] LABS: Absolute Lymphocyte Count 1.62 X10^3/uL (0.83-4.51); Absolute Neutrophil Count 3.1 X10^3/uL (2.0-7.7); Basophil# 0.01 X10^3/uL; Basophil% 0.2 % (0-1); Eosinophil# 0.06 X10^3/uL; Eosinophils% 1.2 % (0-5); Hematocrit 44.7 % (37-47); Hemoglobin 14.1 g/dL (12.0-15.0); Lymphocyte # 1.62 X10^3/ul (0.83-4.51); Lymphocyte % 31.3 % (19-41); Mean Corp Hgb Conc 31.5 g/dL (32-36); Mean Corpuscular Hgb 27.8 pg (27.0-32.0); Mean Platelet Vol. 10.1 fl (6.2-12.0); Monocyte# 0.39 X10^3/uL; Monocyte% 7.5 % (0-10); NRBC Flagged by Analyzer 0 % (0-5); Neutrophil # 3.07 X10^3/uL (2.7-7.7); Neutrophil % 59.4 % (47-70); Platelet Count 301 K/mm3 (150-450); RBC Distribution Width CV 13.4 % (11.6-14.6); RBC Distribution Width SD 43.5 fl (35.1-43.9); Red Blood Count 5.08 M/mm3 (4.2-5.4); White Blood Count 5.2 K/mm3 (4.4-11.0)
[2022-06-09 16:22] LABS: AST(SGOT) 17 U/L (15-37); Alanine Aminotransfer ALT/SGPT 11 U/L (13-56); Albumin, Serum 3.8 g/dL (3.2-5.0); Alkaline Phosphatase 92 U/L (45-117); Anion Gap 4 (5-15); BUN 15 mg/dL (7-18); BUN/Creat Ratio 23.7 RATIO (10-20); Calcium,Total 9.4 mg/dL (8.5-10.1); Chloride 106 mmol/L (98-107); Creatinine, Serum 0.63 mg/dL (0.55-1.02); EST Glomerular Filtration Rate 105 mL/min (>60); Est Glom Filt Rate - Afr Amer 127 mL/min (>60); Globulin 3.7 g/dL (2.2-4.2); Glucose 79 mg/dL (74-106); Magnesium 2.4 mg/dL (1.6-2.6); Potassium 4.1 mmol/L (3.5-5.1); Protein, Total 7.5 g/dL (6.4-8.2); Sodium Level 139 mmol/L (136-145); Thyroid Stim Hormone (TSH) 2.13 uIU/mL (0.358-3.74); Troponin-I HS 3 pg/mL (3.0-54.0)
[2022-06-09 17:09] LABS: Vitamin B12 358 pg/mL (211-911); Vitamin D,25 Hydroxy 26.4 ng/mL
== END | disposition home or self-care (01) ==
PROVIDERS: PCP Family Medicine; Referring Provider Nurse Practitioner Family; Visit Provider Nurse Practitioner Family
DX: R07.9 Chest pain, unspecified (principal); R42 Dizziness and giddiness; R53.83 Other fatigue
CPT/HCPCS: 36415; 80053; 82306; 82607; 83735; 84443; 84484; 85025

== ENCOUNTER → 2022-06-20 | Outpatient (CLI) | payer OTHER, SELFPAY ==
--- NOTE | 2022-06-20 14:23 | NEURO ---
NCS and/or EMG Patient Report Ordering Doctor: Hector Martínez DATE OF SERVICE: 06/20/22 Indication: Intermittent numbness of both hands for many years. Symptoms are most prominent during sleep. No axial or radicular neck pain. Evaluate for entrapment neuropathy. Findings: Nerve conduction studies were performed in the right and left upper extremities. The right median motor study recording the abductor pollicis brevis showed a normal amplitude, prolonged distal latency and normal conduction velocity. The right ulnar motor study recording the abductor digiti minimi showed a normal amplitude, normal distal latency and normal conduction velocity. No conduction block or focal slowing was present across the elbow. The right median sensory response recording digit two showed a normal amplitude, prolonged latency and markedly slowed conduction velocity. The right ulnar sensory response recording digit five showed a normal amplitude, latency and conduction velocity. The right radial sensory response recording over the extensor snuff box showed a normal amplitude, latency and conduction velocity. The left median motor study recording the abductor pollicis brevis showed a normal amplitude, normal distal latency and normal conduction velocity. The left ulnar motor study recording the abductor digiti minimi showed a normal amplitude, normal distal latency and normal conduction velocity. No conduction block or focal slowing was present across the elbow. The left median sensory response recording digit two showed a normal amplitude, latency and conduction velocity. The left ulnar sensory response recording digit five showed a normal amplitude, latency and conduction velocity. The left radial sensory response recording over the extensor snuff box showed a normal amplitude, latency and conduction velocity. Right median-ulnar lumbrical / interosseous motor latencies showed a prolonged median latency compared to the ulnar. Left median-ulnar lumbrical / interosseous motor latencies showed a normal median latency compared to the ulnar. Needle EMG of the right upper extremity and cervical paraspinal muscles was performed. No denervation was seen in any muscle. All motor unit morphology, activation and recruitment patterns were normal. Needle EMG of the left upper extremity and cervical paraspinal muscles was performed. No denervation was seen in any muscle. All motor unit morphology, activation and recruitment patterns were normal. Impression: This is an abnormal study. 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 The pathophysiology is demyelinating without evidence of secondary axonal loss. These findings are compatible with the clinical diagnosis of carpal tunnel syndrome. There is no electrophysiologic evidence of entrapment neuropathy in the left upper extremity. There is no evidence of cervical radiculopathy in either upper extremity. Patrick Golden D.O. Multi Select Codes Neurology Neurology Interp Codes: 02475-21 [facility] [place] comp (interp[place] (Qty:2) and 04526-38 [facility] cnd test 13/> studies (interp)
== END | disposition home or self-care (01) ==
LOC: PSN 11:58
PROVIDERS: PCP Family Medicine; Referring Provider Family Medicine; Visit Provider Family Medicine
DX: M54.12 Radiculopathy, cervical region (principal)
CPT/HCPCS: 95886; 95913

== ENCOUNTER → 2022-06-27 | Outpatient (CLI) | payer OTHER, SELFPAY ==
--- NOTE | 2022-06-27 12:39 | CDU_ITS ---
Reason For Study: Lightheadedness Rt. Velocities/BP Lt. Velocities/BP Prox CCA 81.5/26.7 cm/sec. Prox CCA 84.4/23 cm/sec. Mid CCA 78.7/29.6 cm/sec. Mid CCA 81.5/28.6 cm/sec. Dist CCA 82.5/30.5 cm/sec. Dist CCA 68.3/21.1 cm/sec. Prox ICA 70.2/28.6 cm/sec. Prox ICA 74/30.5 cm/sec. Mid ICA 72.1/30.5 cm/sec. Mid ICA 68.3/33.3 cm/sec. Dist ICA 79.6/38.1 cm/sec. Dist ICA 72.1/35.2 cm/sec. Rt. ICA/CCA = 0.98. Lt. ICA/CCA = 0.91. Prox ECA 78.7/15.4 cm/sec. Prox ECA 73/11.6 cm/sec. Rt. Vert. 36.2/13.5 cm/sec. Lt. Vert. 47.5/20.1 cm/sec. Right Extracranial There is intimal thickening but no significant atherosclerotic plaque noted in the right common carotid artery. There is intimal thickening but no significant atherosclerotic plaque noted in the right internal carotid artery. There is intimal thickening but no significant atherosclerotic plaque noted in the right external carotid artery. Antegrade flow is noted in the right vertebral artery. Left Extracranial There is intimal thickening but no significant atherosclerotic plaque noted in the left common carotid artery. There is intimal thickening but no significant atherosclerotic plaque noted in the left internal carotid artery. There is intimal thickening but no significant atherosclerotic plaque noted in the left external carotid artery. Antegrade flow is noted in the left vertebral artery. Procedure Carotid Duplex [id number]. This is a Carotid Duplex examination using B-mode, color flow and specral Doppler. Exam performed in department. VL/Carotid Duplex Ultrasound Interpretation Summary Normal right extracranial internal carotid. Normal left extracranial internal carotid. Patent and antegrade vertebrals bilaterally. Ordering Physician: Savage Davis Referring Physician: Delvin Martínez M.D. Performed By: Aspen Farooq RVT
--- NOTE | 2022-06-27 13:34 | STRESSREP ---
Stress Test Report Exercise stress test. 52-year-old lady with a history of chest pain Stress protocol: Resting EKG demonstrates normal sinus rhythm with a rate of 71 bpm resting blood pressure is 102/68 mmHg. The patient exercised according to the regular Kp protocol for a total duration of 10 minutes completing 1 minute into stage IV of the Kp protocol and attaining a maximum heart rate of 151 bpm which was 89% of maximum predicted heart rate; the maximum workload was 13.4 metabolic equivalents. At rest there were no ST or T wave changes noted to suggest ischemia and at peak exercise upsloping ST changes only were noted which did not meet the criteria for ischemia. No clinical angina was noted the test was terminated due to the target heart rate being achieved/fatigue. Minimal atypical chest discomfort was noted. The peak blood pressure was 130/62 mmHg. Rate-pressure product was 17,300. Conclusion: Exercise stress test with no EKG changes suggestive of ischemia at a high workload. Excellent functional aerobic capacity.
== END | disposition home or self-care (01) ==
LOC: CVS 12:38
PROVIDERS: PCP Family Medicine; Referring Provider Nurse Practitioner Family; Visit Provider Nurse Practitioner Family
DX: R42 Dizziness and giddiness (principal); R09.89 Other specified symptoms and signs involving the circulatory and respiratory systems; R07.9 Chest pain, unspecified
CPT/HCPCS: 93017; 93880

== ENCOUNTER → 2022-09-23 | Outpatient (CLI) | payer OTHER, SELFPAY ==
--- NOTE | 2022-09-23 07:54 | ECHOD_ITS ---
Reason For Study: PALPS Procedure This was a 2D Doppler, Color Flow transthoracic echocardiogram. Exam performed in department. Left Ventricle Normal size and thickness. The left ventricular ejection fraction is 60 %. Normal diastology for age. Right Ventricle Normal right ventricle. Atria The left and right atria are normal. Mitral Valve Mild-Moderate (1-2+) mitral valve insufficiency. Tricuspid Valve Trivial tricuspid valve insufficiency. Unable to estimate RV systolic pressure due to insufficient tricuspid regurgitant envelope. Aortic Valve Trisinus/trileaflet aortic valve. Trivial aortic valve insufficiency. Pulmonic Valve The pulmonic valve is not well visualized. Great Vessels Normal sized aortic root. Pericardium/Pleural No pericardial effusion. MMode/2D Measurements & Calculations LVIDd: 4.7 cm IVSd: 0.83 cm Ao root diam: 3.2 cm LVIDs: 3.3 cm LVPWd: 1.0 cm RVDd: 2.8 cm FS: 29.6 % LAV(MOD-bp): 41.5 ml LVAd ap4: 26.9 cm2 SV(MOD-sp4): 45.0 ml LAV(MOD-bp) Indexed: 20.6 ml/m2 LVLd ap4: 7.4 cm LAV(MOD-sp2): 41.0 ml EDV(MOD-sp4): 79.7 ml LAV(MOD-sp4): 37.0 ml EDV(sp4-el): 82.8 ml LVAs ap4: 16.2 cm2 LVLs ap4: 6.6 cm ESV(MOD-sp4): 34.6 ml ESV(sp4-el): 33.8 ml EF(MOD-sp4): 56.5 % EF(sp4-el): 59.1 % SV(sp4-el): 49.0 ml LA A4 area: 14.6 cm2 LA dimension(2D): 3.7 cm RA A4 area: 13.2 cm2 TAPSE: 2.0 cm Time Measurements MV dec time: 0.23 sec Doppler Measurements & Calculations MV E max leonard: 61.9 cm/sec Lat Peak E' Leonard: 8.7 cm/sec Med Peak E' Leonard: 8.2 cm/sec MV A max leonard: 68.9 cm/sec E/E' lat: 7.1 E/E' med: 7.6 MV E/A: 0.90 MV V2 max: 70.0 cm/sec Ao V2 max: 127.4 cm/sec MV max P.0 mmHg MV dec slope: 299.6 cm/sec2 Ao max P.5 mmHg MV V2 mean: 51.0 cm/sec Ao V2 mean: 91.7 cm/sec MV mean P.1 mmHg Ao mean P.8 mmHg MV V2 VTI: 22.7 cm Ao V2 VTI: 29.3 cm AV (velocity ratio): 0.67 LV V1 max: 85.9 cm/sec MR max leonard: 474.9 cm/sec PA V2 max: 78.5 cm/sec LV V1 max P.0 mmHg MR max P.2 mmHg PA V2 mean: 64.2 cm/sec LV V1 mean P.7 mmHg MR mean leonard: 377.9 cm/sec LV V1 mean: 61.6 cm/sec MR mean P.7 mmHg LV V1 VTI: 19.8 cm MR VTI: 185.5 cm ECHO/Echo Complete Interpretation Summary The left ventricular ejection fraction is 60 %. Mild-Moderate (1-2+) mitral valve insufficiency. Ordering Physician: Tera Meléndez Referring Physician: Tera Meléndez Performed By: Maria A Boothe RCS
== END | disposition home or self-care (01) ==
LOC: CVS 07:54
PROVIDERS: PCP Family Medicine; Referring Provider Internal Medicine Cardiovascular Disease; Visit Provider Internal Medicine Cardiovascular Disease
DX: R00.2 Palpitations (principal); R53.83 Other fatigue; R42 Dizziness and giddiness; R07.9 Chest pain, unspecified
CPT/HCPCS: 93225; 93226; 93306

== ENCOUNTER → 2022-09-27 | Outpatient (CLI) | payer OTHER, SELFPAY ==
--- NOTE | 2022-09-27 15:20 | US_ITS ---
INDICATION: multiple cysts -- BILATERAL WRISTS EXAMINATION: Bilateral upper extremity ultrasound, nonvascular. COMPARISON: Bilateral wrist radiograph January 31, 2022 TECHNIQUE: Routine welsh scale and color flow imaging of the left wrist and right wrist. FINDINGS: Right wrist 0.6 x 0.6 x 0.4 cm anechoic peritendinous and perivascular cyst along the radial aspect of the wrist. Left wrist 0.9 x 1.0 x 0.9 cm anechoic peritendinous and perivascular cyst extending anteriorly towards the skin surface along the radial aspect of the wrist. US/Ext Non Vasc Limited/Soft Tiss IMPRESSION: Findings compatible with bilateral ganglion cysts along the radial aspect of the wrist. Consider MRI characterization and localization if intervention is anticipated. Electronically Signed: Jeremy Quiñonez MD at 6:12 EDT ,
== END | disposition home or self-care (01) ==
LOC: US 15:17
PROVIDERS: PCP Family Medicine; Referring Provider Orthopaedic Surgery Sports Medicine; Visit Provider Orthopaedic Surgery Sports Medicine
DX: M67.431 Ganglion, right wrist (principal); M67.432 Ganglion, left wrist
CPT/HCPCS: 76882

== ENCOUNTER → 2022-10-27 | Outpatient (CLI) | payer OTHER, SELFPAY ==
--- NOTE | 2022-10-27 12:49 | CT_ITS ---
STUDY: CT CHEST WITHOUT CONTRAST REASON FOR EXAM: Female, 52 years old. Palpitations. RADIATION DOSAGE (If Supplied By Facility): CTDIvol = ( 26.97 ) mGy, DLP = ( 1403.44 ) mGycm TECHNIQUE: Transaxial imaging was performed without the administration of intravenous contrast material. Cardiac over read examination. Individualized dose optimization techniques were used for this CT. COMPARISON: No relevant priors. FINDINGS: CHEST The lungs are normal. There is no demonstrated pleural abnormality. Normal heart and pericardium. There are no calcifications of the coronary arteries. Normal mediastinum. Normal hilar regions. Normal unenhanced pulmonary arteries. Normal aorta arch and descending thoracic aorta. Normal osseous structures. There is no demonstrated abnormality of the visualized upper abdomen. CT/Limited Chest CT Cardiac Only IMPRESSION: Normal unenhanced CT chest T abdomen examination. Electronically Signed: Khoa Morales MD at 16:09 EDT ,
[2022-10-27 12:57] VITALS: BP 121/84; PULSE 59; RESP 18; TEMP 36.3; O2SAT 98; BMI 28.7
[2022-10-27] MEDS: Nitroglycerin SL (ED/IMG/CATH) 0.4 MG TABLET SL (13:10)
[2022-10-27] MEDS: 0.9% Saline Lock 10 ML Syringe IV (13:12)
[2022-10-27 13:15] VITALS: BP 92/59; PULSE 71; RESP 18; O2SAT 98
--- NOTE | 2022-11-08 16:38 | CCTA_ITS ---
CCTA w/Cont Coronary Arteries Date of Study:: 10/27/22 Palpitations Coronary Calcium Scoring: High-resolution Computed Tomographic imaging of the chest was performed on [10/27/22 ], with particular attention paid to the coronary arteries. Intravenous contrast agent was administered per protocol and images reconstructed and displayed. LEFT MAIN CORONARY ARTERY: No significant obstruction noted the above arises from the left coronary cusp [] LEFT ANTERIOR DESCENDING CORONARY ARTERY: No significant obstruction noted. [] LEFT CIRCUMFLEX CORONARY ARTERY: This comes off a branch of the left main coron fiordaliza cusp with no significant stenosis present [] RIGHT CORONARY ARTERY: Dominant vessel with no significant stenosis present [] CORONARY CALCIUM SCORE:0 [] Conclusion: Normal cardiac angio with no significant atherosclerotic disease present in coronary calcium score of 0.
--- NOTE | 2022-11-08 16:41 | CA.SCORE ---
Calcium Scoring Date of Study:: 10/27/22 Coronary Calcium Scoring: High-resolution Computed Tomographic imaging of the chest was performed on [10/27/22 ], with particular attention paid to the coronary arteries. Images from the examination were analyzed for the presence and extent of coronary artery calcification , using coronary calcium quantification software. The patient tolerated the procedure well and there were no complications. The results of the coronary calcification analysis are provided below. Findings Coronary Artery Left Main (LM): 0 Left Anterior Descending (LAD): 0 Left Circumflex (LCX): 0 Right Coronary Artery (RCA): 0 Total Agatston Score: 0 Percentile Rankin% Calcium Scoring Interpretation: Different methods to categorize the overall amount of coronary plaque. Overall amount CAC SIS Visual of coronary plaque P1 Mild -100 <2 1-2 vessels with mild amount of plaque P2 Moderate 101-300 3-4 1-2 vessels with moderate amount, 3 vessels with mild amount of plaque P3 Severe 301-999 5-7 3 vessels with moderate amount, 1 vessel with severe amount of plaque P4 Extensive >1000 >8 2-3 vessels with severe amount of plaque Conclusion: No atherosclerotic plaque
== END | disposition home or self-care (01) ==
LOC: CT 12:48
PROVIDERS: PCP Family Medicine; Referring Provider Internal Medicine Cardiovascular Disease; Visit Provider Internal Medicine Cardiovascular Disease
DX: R00.2 Palpitations (principal); R07.9 Chest pain, unspecified; R42 Dizziness and giddiness
CPT/HCPCS: 75571; 75574; 76380; Q9967; A4216

== ENCOUNTER → 2023-04-21 | Outpatient (CLI) | payer OTHER, SELFPAY ==
--- OUTSIDE RECORDS SUMMARY | 2023-04-21 10:05 | XMS RPT_ITS | CCD ---
Author Name Unknown Address [address] [place] [id number] Organization [facility] Care Team Providers Care Cement Tester Assistant Name Role Phone Guilherme Martínez DO Primary Care Provider MARK GLASS Referring Unavailable MARK GLASS Attending Unavailable GUILHERME MARTÍNEZ Primary Care Unavailable GUILHERME MARTÍNEZ Primary Care Unavailable Guilherme Martínez DO Primary Care Provider TERA KUMAR Referring Unavailable ALEXANDRA FUCHS Attending Unavailable GUILHERME MARTÍNEZ Primary Care Unavailable Allergies Allergy Classification Reported Allergen(s) Allergy Type Date of Onset Reaction(s) Facility (5 sources) Penicillins; Translations: [PENICILLINS] Propensity to adverse reactions 0 Rash [facility] Work Phone: (1 source) Latex; Translations: [LATEX] Propensity to adverse reactions to drug (disorder) 8 [facility] Repository (1 source) BEES; Translations: [BEES] Propensity to adverse reactions (disorder) 3 [facility] Repository Medications Current Medications Medication Drug Class(es) Dates Sig (Normalized) Sig (Original) nitrofurantoin, macrocrystals 25 mg / nitrofurantoin, monohydrate 75 mg oral capsule (1 source) Nitrofuran Antibacterial Start: 10-16-2021 End: 10-21-2021 take 1 capsule by mouth twice daily nitrofurantoin monohydrate and macrocrystal (MACROBID) 100 mg capsule Take 1 capsule by mouth twice daily for 5 days. 10 capsule 0 10/16/2021 10/21/2021 Active Completed/Discontinued Medications Medication Drug Class(es) Dates Sig (Normalized) Sig (Original) magnesium oxide 500 mg oral capsule (3 sources) Start: 01-12-2018 take 1 tablet by mouth once daily Magnesium Oxide 500 mg cap Take 1 tablet by mouth once daily. 0 01/12/2018 Active Problems Active Problems Problem Classification Problem Date Documented Date Episodic/Chronic Cancer of cervix (1 source) Atypical squamous cells of undetermined significance on cervical Papanicolaou smear; Translations: [Atypical squamous cells of undetermined significance on cytologic smear of cervix (ASC-US)] Episodic Conduction disorders (1 source) Atrioventricular block, second degree; Translations: [Atrioventricular block, second degree] Onset: 11-28-2022 Chronic Genitourinary symptoms and ill-defined conditions (1 source) Urgent desire to urinate; Translations: [Urgency of urination] Episodic Immunizations and screening for infectious disease (3 sources) Patient encounter status; Translations: [Encounter for screening for human papillomavirus (HPV)] Episodic Nonspecific chest pain (1 source) Other chest pain; Translations: [Other chest pain] Onset: 03-15-2023 Episodic Urinary tract infections (1 source) Acute lower urinary tract infection; Translations: [Urinary tract infection, site not specified] Episodic Past or Other Problems Problem Classification Problem Date Documented Date Episodic/Chronic Other female genital disorders (3 sources) Cervical intraepithelial neoplasia grade 1; Translations: [Mild cervical dysplasia] Onset: 11-14-2011 11-14-2011 Episodic Results Test Name Value Interpretation Reference Range Facil ity Vital Signs Date Time Vital Sign Value Performing Clinician Kate michelle 02-17-2022 09:00-0500 Body height 171.5 cm Mark Glass MD Work Phone: [facility] 02-17-2022 09:00-0500 Body weight 81.65 kg Mark Glass MD Work Phone: [facility] 02-17-2022 09:00-0500 Diastolic blood pressure 78 mm[Hg] Mark Glass MD Work Phone: [facility] 02-17-2022 09:00-0500 Systolic blood pressure 118 mm[Hg] Mark Glass MD Work Phone: [facility] 10-16-2021 10:48-0400 Body temperature 97.11 [degF] Bridgett Cochran APRN.CNP Work Phone: [facility] 10-16-2021 10:48-0400 Body weight 88.45 kg Bridgett Cochran APRN.GRANITE WORKER Work Phone: [facility] 10-16-2021 10:48-0400 Diastolic blood pressure 80 mm[Hg] Bridgett Cochran FORMULATION SCIENTIST.GRANITE WORKER Work Phone: [facility] 10-16-2021 10:48-0400 Heart rate 94 /min Bridgett Cochran FORMULATION SCIENTIST.GRANITE WORKER Work Phone: [facility] 10-16-2021 10:48-0400 Respiratory rate 16 /min Bridgett Cochran FORMULATION SCIENTIST.GRANITE WORKER Work Phone: [facility] 10-16-2021 10:48-0400 SaO2% (BldA) [Mass fraction] 98 % Brdigett Cochran FORMULATION SCIENTIST.GRANITE WORKER Work Phone: [facility] 10-16-2021 10:48-0400 Systolic blood pressure 110 mm[Hg] Bridgett Cochran APRN.GRANITE WORKER Work Phone: [facility] Encounters Encounter Date Encounter Type Care Provider Facility Start: 03-15-2023 End: 03-15-2023 ambulatory TERA JOSÉ Facility:[facility] Start: 02-25-2022 Telephone encounter Mark kaufman MD Work Phone: OB/Gynecology Procedures Date Procedure Procedure Detail Performing Clinician Start: 10-16-2021 Urnls dip stick/tabl et rgnt auto w/o microscopy Alanna Sanchez FORMULATION SCIENTIST.GRANITE WORKER Work Phone: Start: 04-15-2019 Mammography Bridgett Cochran APRN.GRANITE WORKER Work Phone: Plan of Treatment Date Care Activity Detail Author Start: 02-17-2027 HPV TESTING HPV TESTING [facility] Start: 02-17-2027 PAP TESTING PAP TESTING [facility] Start: 04-15-2024 HPV TESTING HPV TESTING [facility] Start: 04-15-2024 PAP TESTING PAP TESTING [facility] Start: 03-06-2022 DEPRESSION ASSESSMENT DEPRESSION ASSESSMENT [facility] Start: 11-04-2021 Influenza vaccination INFLUENZA (#1) [facility] Start: 10-16-2021 End: 10-13-2022 Bacteria identified in Urine by Culture URINE CULTURE Microbiology Routine Urgency of urination Expected: 10/16/2021, Expires: 12/16/2021 [facility] Work Phone: Payers Date Payer Category Payer Unknown [id number] 2021 Unknown [id number] Social History Date Type Detail Facility Start: 10-16-2021 Tobacco smoking stat us NHIS Never smoked tobacco [facility] Start: 10-16-2021 Tobacco use and exposure Smoke less tobacco non-user [facility] Start: 10-16-2021 End: 02-17-2022 Alcohol intake Current drinker of alcohol (finding) [facility] Start: 04-15-2019 History SDOH Alcohol Frequency 3 [facility] Start: 04-15-2019 History SDOH Alcohol Std Drinks 2 [facility] Start: 12-22-2010 History SDOH Alcohol Comment occasionally [facility] Start: 04-15-2019 History SDOH Social Connections Phone 5 [facility] Start: 04-15-2019 History SDOH Social Connections Jainism 1 [facility] Start: 1970 Sex Assigned At Not on file C [facility] Clinical Notes 10-16-2021 to 03-15-2023 Telephone Encounter - Mark Glass MD - 03/25/2022 2:59 PM ESTTelephone Encounter - Rohini Min LPN - 03/25/2022 2:24 PM ESTTelephone Encounter - Lachelle Manley RN - 03/25/2022 9:30 AM EST Note Date & Type Note Facility 03-15-2023 Note HNO ID: [id number] Author: ALEXANDRA FUCHS MD Service: ? Author Type: Physician Type: Progress Notes Filed: 03/25/2023 16:27 Note Text: PRIMARY CARE PHYSICIAN: Guilherme Martínez DO [address] [place] [id number] REFERRING PHYSICIAN: Tera Kumar [address] [facility] [id number] Patient Care Team: Guilherme Martínez DO as PCP - General (Family Medicine) Tera Kumar MD as Specialty Vp [employer] (Cardiology) CHIEF COMPLAINT: Evaluation of arrhythmia HISTORY OF PRESENT ILLNESS: Ms. Olivarez is a 52 year old female who presents today for evaluation of heart block. She was experiencing chest discomfort, evaluated by Dr. Kumar of [facility]. Cardiac monitoring revealed a brief period of 3:1 AV block that occurred at about midnight. Ms. Olivarez states she was almost certainly sleeping at that time. No history of severe lightheadedness, near syncope or syncope. She had cardiac stress test that showed excellent functional capacity, no evidence for ischemia, and good heart rate response (normal chronotropic response), and no AV block during exercise. EKGs have been normal. Echocardiogram was unremarkable as well. A coronary calcium CT scan showed low score. I have confirmed and edited as necessary, the PFSH and ROS obtained by others. PAST MEDICAL HISTORY Diagnosis Date Arthritis Atrioventricular block, second degree BPPV (benign paroxysmal positional vertigo) Chronic fatigue syndrome Chronic headaches Constipation Generalized anxiety disorder History of continuous positive airway pressure (CPAP) therapy Kidney stones Restless leg syndrome Sleep apnea, obstructive intermittently uses prescribed CPAP PAST SURGICAL HISTORY Procedure Laterality Date HYSTEROSCOPY,W/ENDOMETRIAL ABLATION 01/18/2018 PAST SURGICAL HISTORY OF kidney stone SOCIAL HISTORY Social History Tobacco Use Smoking status: Never Smokeless tobacco: Never Vaping Use Vaping Use: Never used Substance Use Topics Alcohol use: Yes Comment: occasionally Drug use: No FAMILY HISTORY Problem Relation Age of Onset Breast Cancer Mother Cancer Father Colon Cancer Paternal Uncle ALLERGIES: ALLERGIES Allergen Reactions Latex Rash Bees Shortness of Breath Penicillins Rash MEDICATIONS: cyanocobalamin, vitamin B-12, (VITAMIN B-12 ORAL) Take by mouth. cholecalciferol (VITAMIN D-3) 5,000 unit tab Take 5,000 Units by mouth once daily. REVIEW OF SYSTEMS: Review of Systems Constitutional: Negative for chills and fever. Respiratory: Positive for shortness of breath. Negative for cough, hemoptysis, sputum production and wheezing. Cardiovascular: Positive for chest pain and palpitations. Negative for orthopnea, leg swelling and PND. Gastrointestinal: Negative for abdominal pain, blood in stool, melena, nausea and vomiting. Genitourinary: Negative for hematuria. Musculoskeletal: Negative for falls and myalgias. Skin: Negative for rash. Neurological: Negative for focal weakness, seizures and loss of consciousness. PHYSICAL EXAMINATION: BP 108/76 Pulse 85 Resp 18 Ht 5' 8 (1.73m) Wt 197 lb (89.4kg) SpO2 94% BMI 29.96 kg/(m2). Physical Exam Vitals reviewed. Constitutional: General: She is not in acute distress. Appearance: Normal appearance. HENT: Head: Normocephalic and atraumatic. Cardiovascular: Rate and Rhythm: Normal rate and regular rhythm. Heart sounds: Normal heart sounds, S1 normal and S2 normal. No murmur heard. No friction rub. Pulmonary: Effort: Pulmonary effort is normal. No respiratory distress. Breath sounds: Normal breath sounds. No wheezing, rhonchi or rales. Musculoskeletal: Cervical back: Neck supple. Right lower leg: No edema. Left lower leg: No edema. Skin: General: Skin is warm and dry. Neurological: General: No focal deficit present. Mental Status: She is alert and oriented to person, place, and time. Psychiatric: Mood and Affect: Mood normal. Behavior: Behavior normal. Thought Content: Thought content normal. CARDIOVASCULAR MEDICINE TESTING: Electrocardiogram: Sinus rhythm 72 bpm; normal conduction intervals (MN 162 ms, QRS 82 ms); QTc 455 ms I have personally reviewed the Electrocardiogram. Cardiac monitoring for 48 hours 09/2022 revealed sinus rhythm, reported symptoms occurred during sinus rhythm or sinus tachycardia. One episode of 3:1 AV block at 12:39 AM. Rare PVCs and PACs. No rhythm strips provided, just summary report Treadmill stress test 06/2022: Kp protocol, 10 minutes; max HR 151 bpm (89% MPHR), 13.4 METs (excellent functional capacity); no evidence for ischemia Echocardiogram 09/23/2022: normal LV systolic function, LVEF 60%; mild to moderate MR 1. Atrioventricular block, second degree - ICD9: 426.13, ICD10: I44.1 (primary diagnosis) 2. Other chest pain - ICD9: 786.59, ICD10: R07.89 IMPRESSION: Ms. Olivarez has a ch (more content not included)... [facility] 03-25-2022 Miscellaneous Notes filed Pt was contacted and appt scheduled for colposcopy. Please sign order. Rohini Min LPN Please contact patient and follow up regarding new insurance. Patient still needs scheduled for a colposcopy with Dr. Glass. Lachelle Manley RN Called patient and she will call us with her new insurance so we can schedule. She is to be covered under her through [facility]. Macy has her eligible but not Edvin so they will check into it and call Nasreen Gilmore Patient does have updated insurance now. Attempted to transferr to [facility], but was on hold for extended period of time. Please contact patient to schedule colposcopy with Dr. Glass. Anne Ramirez RN Patient notified and stated that effective Mar.06 her insurance is changing. Patient will call back with new insurance and schedule appointment. Please leave note open until patient calls to schedule ----- Message from Mark Glass MD sent at 02/25/2022 12:10 PM EST ----- Notify pt of minimally abnormal pap smear. No clear guidelines for how to proceed given prior ASC-H pap with HPV always being negative. Recommend colposcopy just to be safe documented in this encounter [facility] 02-17-2022 Note HNO ID: [id number] Author: Mark Glass MD Service: ? Author Type: Physician Type: Progress Notes Filed: 02/17/2022 11:21 AM Note Text: Edvin is a 51 year old who presents for an annual gynecologic exam without complaints. Postmenopausal: S/p ablation HRT use: No. Last Pap: 04/22/2019 normal HPV: 04/18/2019 negative History of abnormal pap: Yes - ASC-H negative HPV in 2018 Last mammogram: 2021 at [facility] History of abnormal mammogram: No Sexually active: Yes Patient concerns for STD exposure: No. Possibly had colonoscopy around 5 years ago per patient OB History T0 L6 SAB0 IAB0 Ectopic0 Multiple0 Live Births0 Sommelier History LMP: LMP Unknown, Ablation Age at Menarche: Age at First : Age at Menopause: Sommelier History Comments: Sexual Activity: Yes; Male Contraception: Vasectomy PAST MEDICAL HISTORY Diagnosis Date Constipation Kidney stones PAST SURGICAL HISTORY Procedure Laterality Date HYSTEROSCOPY,W/ENDOMETRIAL ABLATION 01/18/2018 PAST SURGICAL HISTORY OF kidney stone FAMILY HISTORY Problem Relation Age of Onset Cancer Father Breast Cancer Mother Colon Cancer Paternal Uncle SOCIAL HISTORY Social History Tobacco Use Smoking status: Never Smokeless tobacco: Never Vaping Use Vaping Use: Never used Substance Use Topics Alcohol use: Yes Comment: occasionally Drug use: No REVIEW OF SYSTEMS Abdomen: No abdominal pain, nausea, vomiting, diarrhea, or constipation. No bloating, early satiety, indigestion, or increased flatulence. Bladder: No dysuria, gross hematuria, urinary frequency, urinary urgency, or incontinence Breast: No breast lumps, nipple d/c, overlying skin changes, redness or skin retraction Allergies and current medication updated:Yes EXAM: There were no vitals taken for this visit. GENERAL: pleasant, female in no apparent distress HEENT: Normocephalic, atraumatic, mucus membranes moist, and no lesions NECK: full range of motion DERMATOLOGY: Normal, without lesions, non-icteric, and non-hirsute BREAST: soft, non-tender, symmetric, no dominant mass, normal nipple-areolar complex, no lymphadenopathy, and no nipple discharge CHEST: Normal inspiratory effort ABDOMEN: soft, non-tender, and no masses PELVIC: external genitalia normal, normal Bartholin's glands, urethra, [employer]'s glands, no vulvar lesions, no cervical lesions, good vaginal support, physiologic discharge present, normal appearing perineal body and perianal region BIMANUAL: uterus normal size, shape and consistency, no adnexal masses, and non-tender RECTOVAGINAL: deferred. NEURO: exam grossly non-focal EXTREMITIES: normal ASSESSMENT/PLAN: 1) Health maintenance: Pap done with HPV. H/o ASC-H pap, negative HPV and negative colposcopy. Discussed screening guidelines with patient. Mammogram up to date - records reviewed from [facility] and [facility] Category 2 Benign mammogram completed 02/10/2022. Nutrition, exercise and routine health maintenance exams reviewed. Colon cancer screening: up to date with screening per patient. 2) Follow up one year or sooner as needed Mark Glass DO [facility] 02-17-2022 History of Presen t illness Narrative Edvin is a 51 year old who presents for an annual gynecologic exam without complaints. Postmenopausal: S/p ablation HRT use: No. Last Pap: 04/22/2019 normal HPV: 04/18/2019 negative History of abnormal pap: Yes - ASC-H negative HPV in 2018 Last mammogram: 2021 at [facility] History of abnormal mammogram: No Sexually active: Yes Patient concerns for STD exposure: No. Possibly had colonoscopy around 5 years ago per patient OB History T0 L6 SAB0 IAB0 Ectopic0 Multiple0 Live Births0 Sommelier History LMP: LMP Unknown, Ablation Age at Menarche: Age at First : Age at Menopause: Sommelier History Comments: Sexual Activity: Yes; Male Contraception: Vasectomy PAST MEDICAL HISTORY Diagnosis Date Constipation Kidney stones PAST SURGICAL HISTORY Procedure Laterality Date HYSTEROSCOPY,W/ENDOMETRIAL ABLATION 01/18/2018 PAST SURGICAL HISTORY OF kidney stone FAMILY HISTORY Problem Relation Age of Onset Cancer Father Breast Cancer Mother Colon Cancer Paternal Uncle SOCIAL HISTORY Social History Tobacco Use Smoking status: Never Smokeless tobacco: Never Vaping Use Vaping Use: Never used Substance Use Topics Alcohol use: Yes Comment: occasionally Drug use: No REVIEW OF SYSTEMS Abdomen: No abdominal pain, nausea, vomiting, diarrhea, or constipation. No bloating, early satiety, indigestion, or increased flatulence. Bladder: No dysuria, gross hematuria, urinary frequency, urinary urgency, or incontinence Breast: No breast lumps, nipple d/c, overlying skin changes, redness or skin retraction Allergies and current medication updated:Yes EXAM: There were no vitals taken for this visit. GENERAL: pleasant, female in no apparent distress HEENT: Normocephalic, atraumatic, mucus membranes moist, and no lesions NECK: full range of motion DERMATOLOGY: Normal, without lesions, non-icteric, and non-hirsute BREAST: soft, non-tender, symmetric, no dominant mass, normal nipple-areolar complex, no lymphadenopathy, and no nipple discharge CHEST: Normal inspiratory effort ABDOMEN: soft, non-tender, and no masses PELVIC: external genitalia normal, normal Bartholin's glands, urethra, [employer]'s glands, no vulvar lesions, no cervical lesions, good vaginal support, physiologic discharge present, normal appearing perineal body and perianal region BIMANUAL: uterus normal size, shape and consistency, no adnexal masses, and non-tender RECTOVAGINAL: deferred. NEURO: exam grossly non-focal EXTREMITIES: normal ASSESSMENT/PLAN: 1) Health maintenance: Pap done with HPV. H/o ASC-H pap, negative HPV and negative colposcopy. Discussed screening guidelines with patient. Mammogram up to date - records reviewed from [facility] and [facility] Category 2 Benign mammogram completed 02/10/2022. Nutrition, exercise and routine health maintenance exams reviewed. Colon cancer screening: up to date with screening per patient. 2) Follow up one year or sooner as needed Mark Glass DO documented in this encounter [facility] 10-16-2021 Note HNO ID: [id number] Author: Bridgett Cochran APRN.GRANITE WORKER Service: ? Author Type: Nurse Practitioner Type: Progress Notes Filed: 10/16/2021 11:04 AM Note Text: Subjective The history is provided by the patient. No dietitian helper was used. HPI Edvin Scott Ours is a 51 year old female who presents today for CC of burning, urgency and frequency since Positive for Dysuria, Increase in frequency of urination, and Urgency, Negative for Sense of incomplete void, Fevers, Vomiting, Diarrhea, Abdominal pain , Back/Flank pain, Blood in urine, and Vaginal itch or discharge Chance of : No Last intercourse: past week Any self-treatment attempted: Yes Number of previous UTI's in last 6 months:1 Number of previous UTI's in last 12 months: 1 Aggravating Factors: voiding Alleviating Factors include AZO with minimal relief in symptoms. BP 110/80 Pulse 94 Temp 36.2 ?C (97.1 ?F) Resp 16 Wt 88.5 kg (195 lb) LMP (LMP Unknown) SpO2 98% BMI 31.00 kg/m? Social History Tobacco Use Smoking status: Never Smokeless tobacco: Never Vaping Use Vaping Use: Never used Substance Use Topics Alcohol use: Yes Comment: occasionally Drug use: No PAST MEDICAL HISTORY Diagnosis Date Constipation Kidney stones I have confirmed and edited as necessary, the [facility] Review of Systems Constitutional: Negative for chills and fever. Gastrointestinal: Negative for abdominal pain, diarrhea, nausea and vomiting. Genitourinary: Positive for dysuria, frequency and urgency. Negative for flank pain and hematuria. Neurological: Speech change: burning urgency and frequency. Objective Physical Exam Vitals and nursing note reviewed. Constitutional: Appearance: Normal appearance. Abdominal: General: Bowel sounds are normal. There is no abdominal bruit. Palpations: Abdomen is not rigid. There is no mass or pulsatile mass. Tenderness: There is no abdominal tenderness. There is no guarding or rebound. Negative signs include Ferrari's sign and McBurney's sign. Neurological: Mental Status: She is alert and oriented to person, place, and time. Psychiatric: Mood and Affect: Affect normal. ASSESSMENT/PLAN: 1. Urgency of urination - ICD9: 788.63, ICD10: R39.15 (primary diagnosis) macrobid for 5 days Tylenol/ibuprofen as needed for discomfort AZO otc Increase hydration -Follow up with PCP or return to clinic if symptoms not improving in 3 days or if you develop any new (or worsening) symptoms such as fever, chills or back pain go to ER. - UA DIP, URINE (POC) - URINE CULTURE 2. Acute lower UTI - ICD9: 599.0, ICD10: N39.0 acute - UA positive for shay esterase, hematuria, and nitrates - Send urine for culture - Begin treatment with Macrobid 100 mg BID for 5 days - Patient education for prevention given Diagnosis and treatment plan were discussed and questions were answered to the patient's satisfaction. Pt acknowledged understanding of concepts and follow up plan. Specific signs and symptoms that would indicate the need for higher level of care were discussed in detail warranting prompt ER evaluation. Bridgett Cochran APRN.[facility] 10-16-2021 Instructions Bridgett Cochran APRN.CNP - 10/16/2021 11:02 AM EDT Macrobid for 5 days Tylenol/ibuprofen as needed for discomfort AZO otc Increase hydration -Follow up with PCP or return to clinic if symptoms not improving in 3 days or if you develop any new (or worsening) symptoms such as fever, chills or back pain go to ER. documented in this encounter [facility] 10-16-2021 History of Presen t illness Narrative Subjective The history is provided by the patient. No dietitian helper was used. ELIE Edvin Olivarez is a 51 year old female who presents today for CC of burning, urgency and frequency since Positive for Dysuria, Increase in frequency of urination, and Urgency, Negative for Sense of incomplete void, Fevers, Vomiting, Diarrhea, Abdominal pain , Back/Flank pain, Blood in urine, and Vaginal itch or discharge Chance of : No Last intercourse: past week Any self-treatment attempted: Yes Number of previous UTI's in last 6 months:1 Number of previous UTI's in last 12 months: 1 Aggravating Factors: voiding Alleviating Factors include AZO with minimal relief in symptoms. BP 110/80 Pulse 94 Temp 36.2 C (97.1 F) Resp 16 Wt 88.5 kg (195 lb) LMP (LMP Unknown) SpO2 98% BMI 31.00 kg/m Social History Tobacco Use Smoking status: Never Smokeless tobacco: Never Vaping Use Vaping Use: Never used Substance Use Topics Alcohol use: Yes Comment: occasionally Drug use: No PAST MEDICAL HISTORY Diagnosis Date Constipation Kidney stones I have confirmed and edited as necessary, the [facility] Review of Systems Constitutional: Negative for chills and fever. Gastrointestinal: Negative for abdominal pain, diarrhea, nausea and vomiting. Genitourinary: Positive for dysuria, frequency and urgency. Negative for flank pain and hematuria. Neurological: Speech change: burning urgency and frequency. Objective Physical Exam Vitals and nursing note reviewed. Constitutional: Appearance: Normal appearance. Abdominal: General: Bowel sounds are normal. There is no abdominal bruit. Palpations: Abdomen is not rigid. There is no mass or pulsatile mass. Tenderness: There is no abdominal tenderness. There is no guarding or rebound. Negative signs include Ferrari's sign and McBurney's sign. Neurological: Mental Status: She is alert and oriented to person, place, and time. Psychiatric: Mood and Affect: Affect normal. ASSESSMENT/PLAN: 1. Urgency of urination - ICD9: 788.63, ICD10: R39.15 (primary diagnosis) macrobid for 5 days Tylenol/ibuprofen as needed for discomfort AZO otc Increase hydration -Follow up with PCP or return to clinic if symptoms not improving in 3 days or if you develop any new (or worsening) symptoms such as fever, chills or back pain go to ER. - UA DIP, URINE (POC) - URINE CULTURE 2. Acute lower UTI - ICD9: 599.0, ICD10: N39.0 acute - UA positive for shay esterase, hematuria, and nitrates - Send urine for culture - Begin treatment with Macrobid 100 mg BID for 5 days - Patient education for prevention given Diagnosis and treatment plan were discussed and questions were answered to the patient's satisfaction. Pt acknowledged understanding of concepts and follow up plan. Specific signs and symptoms that would indicate the need for higher level of care were discussed in detail warranting prompt ER evaluation. Bridgett Cochran APRN.[facility] documented [facility] Diagnosis Encounter for gynecological examination (general) (routine) without abnormal findings- Primary Encounter for screening mammogram for breast cancer Encounter for screening for malignant neoplasm of cervix Screening for malignant neoplasm of the cervix Special screening examination for human papillomavirus (HPV) [facility] Diagnosis Atypical squamous cells of undetermined significance (ASCUS) on Papanicolaou smear of cervix- Primary [facility] Diagnostic Procedure Only (Routine) - Pending Review Specialty Diagnoses / Procedures Referred By Ruslan grimes Referred To Contact [facility] Diagnoses Encounter for screening mammogram for breast cancer Procedures STEVIE SCREENING SCREENING MAMMOGRAPHY BI 2-VIEW BREAST INC CAD Mark Glass MD [address] [place] [address] [facility] [address] [place] [address] Referral ID Status Reason Start Date Expiration Date Visits Requested Visits Authorized [id number] Pending Review Auto-Generat ed Referral 2 03/19/2023 1 1 [facility] Outpatient Procedure (Routine) - Denied Specialty Diagnoses / Procedures Referred By Ruslan grimes Referred To Contact [facility] Diagnoses Atypical squamous cells of undetermined significance (ASCUS) on Papanicolaou smear of cervix Procedures COLPOSCOPY COLPOSCOPY CERVIX BX CERVIX & ENDOCRV CURRETAGE Mark Glass MD [address] [place] [address] [facility] [address] [place] [address] Referral ID Status Reason Start Date Expiration Date V isits Requested Visits Authorized [id number] Denied Auto-Generate d Referral 03/25/2022 03/05/2023 1 0 [facility] Summary Purpose Family History No Family History Records FoundNo Family History Records Found Advance Directives No Advanced Directives Records FoundNo Advanced Directives Records Found Additional Source Comments Source Comments (unrecognize d section and content) In the event this informatio n is protected by the Federal Confidentiality of Alcohol and Drug Abuse Patient Records regulations: The Federal rules restrict any use of the information to criminally investigate or prosecute any alcohol or drug abuse patient.[facility] the event this information is protected by the Federal Confidentiality of Alcohol and Drug Abuse Patient Records regulations: The Federal rules restrict any use of the information to criminally investigate or prosecute any alcohol or drug abuse patient.[facility] the event this information is protected by the Federal Confidentiality of Alcohol and Drug Abuse Patient Records regulations: The Federal rules restrict any use of the information to criminally investigate or prosecute any alcohol or drug abuse patient.[facility] Reason for Visit (unrecogniz ed section and content) Reason Comments [facility] Specialty Diagnoses / Procedures Referred By Ruslan t Referred To Contact [facility] Diagnoses PATIENT PREPAID FOR APPOINTMENT Procedures PT PREPAID FOR ANNUAL EXAM Mark Glass MD [address] [place] [address] [facility] [address] [place] [address] Referral ID Status Reason Start Date Expiration Date Visits Requested Visits Authorized [id number] Authorized OON/Self Pay Override 2 01/26/2023 1 20 Reason Comments Results Care Teams (unrecognized sec tion and content) Cement Tester Assistant Relationship Specialty Start Date End Date Guilherme Martínez DO PCP - General 09/18/09 Cement Tester Assistant Relationship Specialty Start Date End Date Guilherme Martínez DO PCP - General 09/18/09 INFORMATION SOURCE (unrecogn ized section and content) DATE CREATED AUTHOR AUTHOR'S NISSA ATION 03/26/2023 [facility] FOR RECORDS PERTAINING TO PATIENTS WHO ARE OR HAVE BEEN ENROLLED IN A CHEMICAL DEPENDENCY/SUBSTANCEABUSE PROGRAM, SOME INFORMATION MAY BE OMITTED. This clinical summary was aggregated from multiple sources. Caution should be exercised in using it in the provision of clinical care. This summary normalizes information from multiple sources, and as a consequence, information in this document may materially change the coding, format and clinical context of patient data. In addition, data may be omitted in some cases. CLINICAL DECISIONS SHOULD BE BASED ON THE PRIMARY CLINICAL RECORDS. [facility] provides no warranty or guarantee of the accuracy or completeness of information in this document.
== END | disposition home or self-care (01) ==
PROVIDERS: PCP Family Medicine; Referring Provider Physician Assistant; Visit Provider Physician Assistant
DX: R06.09 Other forms of dyspnea (principal)
CPT/HCPCS: 94060; 94726; 94729

== ENCOUNTER → 2024-06-19 | Outpatient (CLI) | payer BC, SELFPAY ==
[2024-06-19 15:35] LABS: Absolute Lymphocyte Count 2.07 X10^3/uL (0.83-4.51); Absolute Neutrophil Count 3.8 X10^3/uL (2.0-7.7); Basophil# 0.02 X10^3/uL; Basophil% 0.3 % (0-1); Eosinophil# 0.09 X10^3/uL; Eosinophils% 1.4 % (0-5); Hematocrit 40.8 % (37-47); Hemoglobin 13.5 g/dL (12.0-15.0); Lymphocyte # 2.07 X10^3/ul (0.83-4.51); Lymphocyte % 31.7 % (19-41); Mean Corp Hgb Conc 33.1 g/dL (32-36); Mean Corpuscular Hgb 28.1 pg (27.0-32.0); Mean Platelet Vol. 9.9 fl (6.2-12.0); Monocyte# 0.55 X10^3/uL; Monocyte% 8.4 % (0-10); NRBC Flagged by Analyzer 0 % (0-5); Neutrophil # 3.78 X10^3/uL (2.7-7.7); Neutrophil % 57.9 % (47-70); Platelet Count 289 K/mm3 (150-450); RBC Distribution Width CV 13.7 % (11.6-14.6); RBC Distribution Width SD 42.3 fl (35.1-43.9); White Blood Count 6.5 K/mm3 (4.4-11.0)
[2024-06-19 16:09] LABS: ALB/GLOB Ratio 1.2 RATIO (0.9-2.4); AST(SGOT) 17 U/L (<=31); Alanine Aminotransfer ALT/SGPT 7 U/L (<=34); Albumin, Serum 4.3 g/dL (3.5-5.0); Alkaline Phosphatase 108 U/L (35-104); Anion Gap 12 (5-15); BUN 21 mg/dL (4-19); BUN/Creat Ratio 32.6 RATIO (10-20); Calcium,Total 9.5 mg/dL (7.6-11.0); Carbon Dioxide 24.8 mmol/L (21.0-32.0); Chloride 104 mmol/L (98-108); Cholesterol 254 mg/dL (<=200); Creatinine, Serum 0.63 mg/dL (0.70-1.20); EST Glomerular Filtration Rate 105 (>60); Globulin 3.4 g/dL (2.2-4.2); Glucose 91 mg/dL (70-99); High Density Lipoprotein 53 mg/dL; Low Density Lipoprotein Calc. 168 mg/dL; Potassium 4.2 mmol/L (3.3-5.1); Protein, Total 7.7 g/dL (5.9-8.4); Sodium Level 140 mmol/L (133-145); Total Bilirubin 0.25 mg/dL (0.00-1.30); Triglycerides 167 mg/dL; Very Low Density Lipoprotein 33 mg/dL (5-40)
== END | disposition home or self-care (01) ==
LOC: BIMLAB 13:45
PROVIDERS: PCP Family Medicine; Referring Provider Family Medicine; Visit Provider Family Medicine
DX: R06.09 Other forms of dyspnea (principal)
CPT/HCPCS: 36415; 80053; 80061; 84443; 85025

== ENCOUNTER → 2024-06-28 | Outpatient (CLI) | payer BC, SELFPAY ==
--- NOTE | 2024-06-28 12:13 | BI_ITS ---
EXAM: SCRN MAMM (CAD)W/CASTILLO BILAT 06/28/2024 CLINICAL HISTORY: F, Age 54 y/o , SCREENING TECHNIQUE: Bilateral screening digital breast tomosynthesis with 2D and 3D images. Computer aided detection. COMPARISON: Prior exam(s) dated 02/10/2022. FINDINGS: TISSUE DENSITY: The breast tissue is heterogenously dense, which may obscure small masses. The mammogram demonstrates that the patient has dense breasts. Supplemental screening with whole breast ultrasound or MRI may be considered for further evaluation. Bilateral Breast Mammographic Findings: No significant masses, calcifications or other abnormalities are identified. BI/SCRN MAMM (CAD)W/CASTILLO BILAT IMPRESSION: Right Breast: BIRADS 1 NEGATIVE. Left Breast: BIRADS 1 NEGATIVE. OVERALL FINAL ASSESSMENT: BIRADS 1 NEGATIVE. RECOMMENDATION: Routine annual follow-up in 1 Year A letter with findings and recommendations will be mailed to the patient. Reading Location: [id number]
== END | disposition home or self-care (01) ==
LOC: OPBI 12:11
PROVIDERS: PCP Family Medicine; Referring Provider Family Medicine; Visit Provider Family Medicine
DX: Z12.31 Encounter for screening mammogram for malignant neoplasm of breast (principal)
CPT/HCPCS: 77063; 77067

== ENCOUNTER → 2025-01-15 | Outpatient (CLI) | payer OTHER, SELFPAY ==
--- NOTE | 2025-01-15 15:29 | MRI_ITS ---
PROCEDURE: UPPER EXT JOINT ONLY(ROUTINE) 01/15/2025 REASON FOR EXAM: EVALUATE GANGLION CYST TECHNIQUE: Procedure Code: MRIUEJ Modality: MR Procedure: UPPER EXT JOINT ONLY(ROUTINE) T1, T2, stir, multiplanar and multisequence images were obtained right wrist without IV contrast administration. Motion is noted. COMPARISON: COMPARISON: None FINDINGS: Bone Marrow: There is no bony contusion or occult fracture. Effusion: There is a small effusion at the radiocarpal articulation and distal radioulnar joint. Soft Tissues: The carpal tunnel and median nerve are normal in appearance. Ligaments and Tendons: There is a complex ganglion which surrounds the flexor carpi radialis tendon at the level of the radiocarpal articulation, measuring 1.5 by 1.5 by 1.5 cm and has a component extending to the radiocarpal joint space. There is increased fluid in the tendon sheath of the extensor carpi radialis longus, and extensor carpi radialis brevis, with mild tenosynovitis. The remainder of the flexor and extensor tendons are unremarkable. MRI/Upper Ext Joint Only(Routine) IMPRESSION: There is a small effusion at the radiocarpal articulation and distal radioulnar joint. There is a complex ganglion which surrounds the flexor carpi radialis tendon at the level of the radiocarpal articulation, measuring 1.5 by 1.5 by 1.5 cm and has a component extending to the radiocarpal joint space. There is increased fluid in the tendon sheath of the extensor carpi radialis lo ngus, and extensor carpi radialis brevis, with mild tenosynovitis. Reading Location: [facility]
== END | disposition home or self-care (01) ==
PROVIDERS: PCP Family Medicine; Referring Provider Orthopaedic Surgery Sports Medicine; Visit Provider Orthopaedic Surgery Sports Medicine
DX: M71.331 Other bursal cyst, right wrist (principal)
CPT/HCPCS: 73221

== ENCOUNTER 2025-02-19 05:58 | Day surgery (SDC) | payer OTHER, SELFPAY ==
--- NOTE | 2025-02-10 12:49 | PAT.ANESEVAL ---
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 When Was Last Pacemaker Check QUESTION #4 FULL TEXT: You/Your Family Experience fever (hyperthermia) with Anesthesia Last Oral Intake Last Oral intake: Last Oral Intake NPO since Meds taken in AM with sips of water? Meds patient instructed to take am of surgery PONV PONV - wide area network systems administrator: PONV - wide area network systems administrator Female Yes 02/10/25 11:02 HX of Motion Sickness No 02/10/25 11:02 HX of N/V After Surgery No 02/10/25 11:02 Non-Smoker Yes 02/10/25 11:02 Duration of Surgery greater No 02/10/25 11:02 than 60 minutes Number of Risk Factors 2 02/10/25 11:02 PONV Score Moderate Risk 02/10/25 11:02 Height & Weight Height & Weight: Anesthesia: Height & Weight Height 5 ft 8 in 12/13/24 10:40 Respiratory Assessment Respiratory Assessment - wide area network systems administrator: Respiratory Tract Infection Hx - wide area network systems administrator Hx Respiratory Tract Infection No 02/10/25 11:02 STOP Sleep Apnea STOP Sleep Apnea - wide area network systems administrator: STOP Sleep Apnea - wide area network systems administrator Hx Hypertension No 02/10/25 11:02 Hx Sleep Apnea Yes 02/10/25 11:02 CPAP Yes 02/10/25 11:02 BIPAP No 02/10/25 11:02 Do you snore loudly (louder than talking or can be heard Do you often feel tired/ fatigued/ sleepy during daytime? Has anyone observed you stop breathing during sleep? STOP Results Positive 02/10/25 11:02 QUESTION #5 FULL TEXT : Do you snore loudly (louder than talking or can be heard through closed doors)? Tobacco Use History Tobacco Use History - wide area network systems administrator: Tobacco Use History - wide area network systems administrator Tobacco Use Non-smoker 02/08/23 14:36 Smoking Status Never smoker 02/10/25 11:02 Hx Tobacco Use No 02/10/25 11:02 Years Smoking Packs Smoked per Day Smoking Cessation Date was within the last 15 years Hx Smoking Cessation Date Hx Smoking Cessation Counseling Hematologic Medial History Hematologic Hx - wide area network systems administrator: Hematologic Medical Hx - garde manager Hx of Blood Transfusion No 02/10/25 11:02 Hx of Transfusion in last 3 No 02/10/25 11:02 Months Date of Last Transfusion (if within last 3 months) Ever experience any problems No 02/10/25 11:02 with transfusion(s)? Specify any problems Hx of Preganancy in last 3 No 02/10/25 11:02 Months Nurse Filling Out Transfusion VLEHMAN 02/10/25 11:02 & Questions: Date: 02/10/25 02/10/25 11:02 Time: 11:08 02/10/25 11:02 Patient unable to answer at this time (ie. confused, unrespo /Reproduction History /Reproductive History - wide area network systems administrator: /Reproductive Hx- wide area network systems administrator Hx Now No 02/10/25 11:02 Gestational Age (in weeks): EDC: Hx Hx Para Hx Section SAB No 02/10/25 11:02 Does the father of the baby or his family experience fever w Father of the baby Malignant Hypertension history comment [facility] Medical History (Updated 02/10/25 @ 11:07 by Ana Wilson) Wears glasses Post-menopausal History of renal disease CPAP (continuous positive airway pressure) dependence Sleep apnea Right hip pain Right carpal tunnel syndrome Mobitz type 2 second degree atrioventricular block Palpitations Ganglion cyst of both wrists Abnormal Pap smear of cervix Carpal tunnel syndrome BPPV (benign paroxysmal positional vertigo) Fatigue Carotid bruit Dizziness Chest pain Cervical radiculopathy Arthritis of left wrist Alcohol use Non-smoker CPAP (continuous positive airway pressure) dependence Restless legs Migraine headache Anxiety Sleep apnea in adult Recurrent cold sores Sleep disturbance, unspecified Encounter for preventative adult health care examination Menorrhagia Anxiety about health Chronic constipation Kidney stones Chronic headaches Home Medications ?Medication ?Instructions ?Recorded ?Last Taken ?Type cholecalciferol (vitamin D3) 125 125 mcg PO DAILY 09/02/22 Unknown History mcg (5,000 unit) capsule vitamin B complex (B 1 tab PO DAILY 09/02/22 Unknown History Complex-Vitamin B12 tablet) Allergy/AdvReac Type Severity Reaction Status Date / Time latex Allergy Intermediate rash Verified 02/10/25 11:01 Penicillins Allergy Swelling Verified 02/10/25 11:01 Bees Allergy Shortness Uncoded 12/23/24 13:14 of breath Family History Mother Breast cancer Uncle Colon cancer Father Cancer Surgical History History of endometrial ablation History of colonoscopy History of kidney surgery Social History Smoking Status: Never smoker second hand exposure: No alcohol intake: current alcohol intake frequency: a few times a month substance use type: does not use caffeine: Yes Type: coffee Number of servings: 1 what type of physical activity do you participate in: none frequency: does not exercise Audit: Pertinent Findings Pertinent Findings Echo (EF%) pertinent findings: 09/23/2022. EF 60%. Mild to moderate mitral valve insufficiency. Consult pertinent findings: Cardiology 12/07/2022. Chest pain chronic. Atypical. No disease noted on coronary CT angio. Mobitz type II second-degree AV block. Referred to electrophysiology. Recommendation Anesthesia Recommendation Anesthesia recommendation: OPTIMIZED for anesthesia
[2025-02-19] VITALS (8 sets, daily range): BP systolic 86–109; BP diastolic 66–83; PULSE 69–86; RESP 16–18; TEMP 36.1–36.9; O2SAT 92–98; BMI 28.5
--- OUTSIDE RECORDS SUMMARY | 2025-02-19 06:01 | XMS RPT_ITS | CCD ---
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 Guilherme Martínez Primary Care Provider [phone] Dr. Guilherme Martínez Attending Provider [phone] Dr. Guilherme Martínez Referring Provider 1([facility])[phone] Guilherme Martínez DO Primary Care Provider Dr. Guilherme Martínez Primary Care Provider 1([facility] ) Dr. Guilherme Martínez Referring Provider 1([facility])[phone] Susan YARN TEXTURE MACHINE OPERATOR, YARN TEXTURE MACHINE OPERATOR-C Savage Attending Provider Dr. Guilherme Martínez Other Provider 1([facility])[phone] Juan Golden Attending Provider Dr. Scott Desai Attending Provider 1([facility])[phone] Davis YARN TEXTURE MACHINE OPERATOR, YARN TEXTURE MACHINE OPERATOR-C Savage Referring Provider 1([facility])[phone] Davis YARN TEXTURE MACHINE OPERATOR, YARN TEXTURE MACHINE OPERATOR-C Savage Other Provider 1([facility])[phone] Camilo Austin Attending Provider 1([facility])[phone] Patrick Golden Attending Provider 1([facility] )[phone] Davis YARN TEXTURE MACHINE OPERATOR, YARN TEXTURE MACHINE OPERATOR-C Savage Referring Provider 1([facility])[phone] MD Umair Shabazz Attending Provider 1([facility])[phone] Dr. Tera Kumar Attending Provider 1([facility])[phone] [place] YARN TEXTURE MACHINE OPERATOR, YARN TEXTURE MACHINE OPERATOR-C Christine Attending Provider Natalia YARN TEXTURE MACHINE OPERATOR, YARN TEXTURE MACHINE OPERATOR-C Alfie Flor Attending Provider 1([facility])[phone] Dr. Guilherme Martínez Primary Care Provider 1([facility] )[phone] Dr. Guilherme Martínez Referring Provider 1([facility])[phone] TERA KUMAR Referring Unavailable ALEXANDRA PATEL Attending Unavailable SHAD, GUILHERME R Primary Care Unavailable JEANA Grady Attending Provider [phone] Dr. Guilherme Martínez Primary Care Provider [phone] Dr. Guilherme Martínez Referring Provider [phone] Shad LEE, Dr. Guilherme Up Primary Care Provider Shad LEE, Dr. Guilherme Up Attending Provider [phone] Shad LEE, Dr. Guilherme Up Referring Provider [phone] MARK GLASS Attending Unavailable BROWN, GUILHERME R Primary Care Unavailable Guilherme Martínez DO Primary Care Provider Tera Kumar MD Unavailable Bertram Del Castillo DO Primary Care Provider Shad LEE, Dr. Guilherme Up Primary Care Physician Dr. Guilherme Martínez DO Referring Provider [phone] Umair Shabazz MD Attending Physician [phone] Dr. Camilo Austin MD Attending Physician [phone] Dr. Bertram Del Castillo DO Attending Physician [phone] Shad LEE, Dr. Guilherme Up Primary Care Physician Dr. Guilherme Martínez DO Referring Provider [phone] Umair Shabazz MD Attending Physician [phone] Dr. Camilo Austin MD Attending Physician [phone] Dr. Bertram Del Castillo DO Attending Physician [phone] Brown, Guilherme R Attending Unavailable Brown, Guilherme R Referring Unavailable Brown, Guilherme R Primary Care Unavailable Umair Shabazz Attending Unavailable Shad, Guilherme R Primary Care Unavailable Camilo Austin Attending Unavailable Brown, Guilherme R Primary Care Unavailable Bertram Del Castillo Attending Unavailable Brown, Guilherme R Referring Unavailable Brown, Guilherme R Primary Care Unavailable Umair Shabazz Referring Unavailable Shad, Guilherme R Primary Care Unavailable Umair Shabazz Attending Unavailable Camilo Austin Attending Unavailable Brown, Guilherme R Primary Care Unavailable Brown, Guilherme R Primary Care Unavailable Brown, Guilherme R Attending Unavailable Brown, Guilherme R Referring Unavailable Umair Shabazz Attending Unavailable Brown, Guilherme R Referring Unavailable Brown, Guilherme R Primary Care Unavailable Brown, Guilherme R Attending Unavailable Brown, Guilherme R Referring Unavailable Brown, Guilherme R Primary Care Unavailable [facility] Primary Care Unavaila ble BRENT ROCKWELL Attending Unavailable [facility] Admitting Unavaila ble [facility] Referring [facility] Care Unavaila ble [facility] Admitting Unavaila ble ACE CHANDLER Attending Unavailable [facility] Primary [facility] Unavaila ble [facility], [facility] Referring Unavaila ble [facility], [facility] Unavaila ble ACE CHANDLER Attending Unavailable [facility] Admitting Unavaila ble Allergies Allergy Classification Reported Allergen(s) Allergy Type Date of Onset Reaction(s) Facility (5 sources) Penicillins; Translations: [PENICILLINS] Propensity to adverse reactions 0 [facility] Work Phone: (18 sources) Latex; Translations: [LATEX] Allergy to substance 8 [facility] (15 sources) Penicillins Allergy to substance 2 [facility] (11 sources) BEES; Translations: [BEES] Propensity to adverse reactions (disorder) 3 Shortness of Breath [facility] Other [facility] (1 source) Penicillins Propensity to adverse reactions 0 [facility] (6 sources) Penicillin G; Translations: [PENICILLIN G] Drug Allergy 5 [facility] (6 sources) Bee Venom Protein (Honey Bee); Translations: [BEE VENOM PROTEIN (HONEY BEE)] Propensity to adverse reactions to drug 5 [facility] (1 source) Latex Drug allergy (disorder) 5 [facility] Repository (1 source) Penicillins Drug allergy (disorder) 5 [facility] Repository Medications Current Medications Medication Drug Class(es) Dates Sig (Normalized) Sig (Original) cholecalciferol 0.125 mg oral capsule (10 sources) Vitamin D Start: 09-02-2022 take 1 capsule by mouth once daily take 1 tablet by mouth once padilla y cholecalciferol (VITAMIN D-3) 5,000 unit tab Take 5,000 Units by mouth once daily. Active cyanocobalamin, vitamin B-12, (VITAMIN B-12 ORAL) (1 source) cyanocobalamin, vitamin B-12, (VITAMIN B-12 ORAL) Take by mouth. Active nitrofurantoin, macrocrystals 25 mg / nitrofurantoin, monohydrate 75 mg oral capsule (1 source) Nitrofuran Antibacterial Start: End: take 1 capsule by mouth twice daily nitrofurantoin monohydrate and macrocrystal (MACROBID) 100 mg capsule Take 1 capsule by mouth twice daily for 5 days. 10 capsule 0 10/16/2021 10/21/2021 Active Comment on above: Take 1 capsule by [facility] twice daily for 5 days. [place] (Nk) (3 sources) Start: [place] (Nk) Active January 04, 2022 12:00am Start: 01-04-2022 [place] (Nk) A ctive January 03, 2022 11:00pm Vitamin B Complex (B Complex -Vitamin B12) tablet (9 sources) Start: 09-02-2022 Start: 09-02-2022 Start: 09-02-2022 Vitamin B Comp eulogio (B Complex-Vitamin B12) tablet Active 1 {tbl} PO DAILY September 02, 2022 12:00am Start: 09-02-2022 take 1 tablet by mouth once da angeli Vitamin B Complex (B Complex-Vitamin B12) tablet Active 1 TABLET PO DAILY September 01, 2022 11:00pm Start: 09-02-2022 take 1 tablet by mouth once da angeli Vitamin B Complex (B Complex-Vitamin B12) tablet Active 1 TABLET PO DAILY September 02, 2022 12:00am Completed/Discontinued Medications Medication Drug Class(es) Dates Sig (Normalized) Sig (Original) acetaminophen 325 mg / HYDROcodone bitartrate 5 mg oral tablet (15 sources) Opioid Agonist Start: 10-17-2020 End: 01-04-2022 Hydrocodone-Acetami nophen 5-325 mg tablet Discontinued 1 {tbl} PO EVERY 4 HOURS NEEDED as needed for Pain 10 2 0 October 17, 2020 January 04, 2022 2:11pm Arthritis of left wrist Primary osteoarthritis, left wrist Start: 10-17-2020 End: 01-04-2022 take 1 tablet by mouth every four hours as needed Hydrocodone-Acetaminophen Discontinued 1 TABLET PO EVERY 4 HOURS NEEDED 12 05October 17, 2020 January 04, 2022 2:11pm 12 hr buPROPion hydrochloride 90 mg / naltrexone hydrochloride 8 mg extended release oral tablet (4 sources) Opioid Antagonist, Aminoketone Start: 07-03-2024 End: 08-02-2024 take 2 tablets by mouth in the morning, then take 1 tablet by mouth once in the evening, then take 2 tablets by mouth twice daily Naltrexone-Bupropion (Contrave) 8-90 mg tablet extended release Discontinued 2 {tbl} PO .COMPLEX 90 30 0 July 02, 2024 11:00pm July 31, 2024 11:00pm August 01, 2024 11:09pm 2 tabs in am one in PM -third week, 2 tabs BID fourth week famciclovir 250 mg oral tablet (20 sources) Herpes Simplex Virus Nucleoside Analog DNA Polymerase Inhibitor Start: 06-09-2020 End: 06-18-2020 take 1 tablet by mouth three times daily Famciclovir 250 mg tablet Discontinued 250 mg PO THREE TIMES A DAY 15 June 09, 2020 12:46pm June 18, 2020 8:20am ferrous sulfate 325 mg oral tablet (15 sources) Start: 01-12-2018 End: 05-02-2019 take 1 tablet by mouth once daily Ferrous Sulfate 325 MG tablet Discontinued 325 mg PO DAILY January 12, 2018 12:00am May 02, 2019 11:12am fluconazole 150 mg oral tablet (15 sources) Azole Antifungal Start: 06-02-2020 End: 06-09-2020 take 1 tablet by mouth once Fluconazole (Diflucan) 150 mg tablet Discontinued 150 mg PO ONCE 1 0 June 01, 2020 11:00pm June 09, 2020 12:20pm as a single dose Magnesium (7 sources) Start: 12-07-2022 End: 12-13-2024 take 1 tablet by mouth once daily Magnesium 250 mg tablet Discontinued 250 mg PO DAILY December 06, 2022 11:00pm December 13, 2024 9:41am Start: 12-07-2022 End: 12-13-2024 take 1 tablet by mouth once daily Magnesium 250 mg tablet Discontinued 250 mg PO DAILY December 07, 2022 12:00am December 13, 2024 10:41am Start: 12-07-2022 take 1 tablet by ramana th once daily Magnesium 250 mg tablet Active 250 mg PO DAILY December 07, 2022 12:00am Start: 12-07-2022 take 250 mg by mouth once padilla y Magnesium Active 250 MG PO DAILY December 06, 2022 11:00pm magnesium oxide 500 mg oral capsule (18 sources) Start: 01-12-2018 End: 01-04-2022 take 1 capsule by mouth once daily Magnesium Oxide 500 MG capsule Discontinued 500 mg PO DAILY January 12, 2018 12:00am January 04, 2022 2:11pm Comment on above: Take 1 tablet by ramnaa th once daily. meclizine hydrochloride 25 mg oral tablet (20 sources) Antiemetic Start: 06-09-2022 End: 12-13-2024 take 1 tablet by mouth twice daily as needed for dizziness Meclizine 25 mg tablet Discontinued 25 mg PO TWICE A DAY as needed for dizziness 30 0 June 08, 2022 11:00pm December 13, 2024 9:41am Start: 06-02-2020 End: 06-09-2020 Meclizine 25 mg tablet Disco ntinued 12.5 mg PO THREE TIMES A DAY as needed for dizziness 10 0 June 01, 2020 11:00pm June 09, 2020 12:20pm Start: 06-02-2020 End: 06-09-2020 take 12.5 mg by mouth three times daily Meclizine Discontinued 12.5 MG PO THREE TIMES A DAY June 01, 2020 11:00pm June 09, 2020 12:20pm ondansetron 4 mg disintegrating oral tablet (15 sources) Serotonin-3 Receptor Antagonist Start: 10-17-2020 End: 01-04-2022 take 2 tablets by mouth every eight hours as needed for nausea Ondansetron 4 mg tablet,disintegrating Discontinued 8 mg PO EVERY 8 HOURS NEEDED as needed for Nausea 14 0 October 16, 2020 11:00pm January 04, 2022 2:11pm Start: 10-17-2020 End: 01-04-2022 take 8 mg by mouth every eight hours as needed Ondansetron Discontinued 8 MG PO EVERY 8 HOURS NEEDED October 16, 2020 11:00pm January 04, 2022 2:11pm phentermine hydrochloride 15 mg oral capsule (4 sources) Sympathomimetic Amine Anorectic Start: 07-10-2024 End: 12-13-2024 take 1 capsule by mouth once daily 2 hour(s) after breakfast Phentermine 15 mg capsule Discontinued 15 mg PO daily 30 July 09, 2024 11:00pm December 13, 2024 9:41am must administer 2 hours after breakfast predniSONE 20 mg oral tablet (15 sources) Start: 10-17-2020 End: 01-04-2022 take 2 tablets by mouth once daily Prednisone 20 mg tablet Discontinued 40 mg PO DAILY 10 October 16, 2020 11:00pm January 04, 2022 2:11pm Start: 10-17-2020 End: 01-04-2022 take 40 mg by mouth once daily Prednisone Discontinued 40 MG PO DAILY October 16, 2020 11:00pm January 04, 2022 2:11pm Problems Active Problems Problem Classification Problem Date Documented Da te Episodic/Chronic Anxiety disorders (20 sources) Anxiety; Translations: [Anxiety disorder, unspecified] 06-18-2020 Chronic Calculus of urinary tract (16 sources) Kidney stone; Translations: [Calculus of kidney] Onset: 8 01-18-2018 Episodic Cancer of cervix (1 source) Atypical squamous cells of undetermined significance on cervical Papanicolaou smear; Translations: [Atypical squamous cells of undetermined significance on cytologic smear of cervix (ASC-US)] Episodic Cardiac dysrhythmias (13 sources) Palpitations; Translations: [Palpitations] Onset: 3 09-14-2022 Episodic Conditions associated with dizziness or vertigo (20 sources) Benign paroxysmal positional vertigo; Translations: [Benign paroxysmal vertigo, unspecified ear] 06-09-2022 Episodic Conduction disorders (11 sources) Mobitz type II atrioventricular block; Translations: [Atrioventricular block, second degree] Onset: 3 09-28-2022 Chronic Genitourinary symptoms and ill-defined conditions (1 source) Urgent desire to urinate; Translations: [Urgency of urination] Episodic Headache; including migraine (16 sources) Chronic headache disorder; Translations: [Chronic headache] Onset: 3 01-18-2018 Episodic Heart valve disorders (8 sources) Mitral valve regurgitation; Translations: [Nonrheumatic mitral (valve) insufficiency] Onset: 3 12-07-2022 Chronic Comment on above: Mild to moderate reg urgitation noted on echocardiogram. Immunizations and screening for infectious disease (4 sources) Patient encounter status; Translations: [Encounter for screening for human papillomavirus (HPV)] Onset: Episodic Malaise and fatigue (16 sources) Fatigue; Translations: [Other fatigue] 06-09-2022 Episodic Menstrual disorders (15 sources) Menorrhagia; Translations: [Excessive and frequent menstruation with regular cycle] 06-18-2020 Chronic Miscellaneous mental health disorders (7 sources) Anxiety about body function or health; Translations: [Other symptoms and signs involving emotional state] 06-18-2020 Episodic Nonspecific chest pain (20 sources) Chest pain; Translations: [Chest pain, unspecified] Onset: 3 06-09-2022 Episodic Osteoarthritis (17 sources) Arthritis of left wrist; Translations: [Primary osteoarthritis, left wrist] Chronic Other circulatory disease (12 sources) Carotid bruit; Translations: [Other specified symptoms and signs involving the circulatory and respiratory systems] 06-09-2022 Episodic Other connective tissue disease (5 sources) Ganglion of wrist; Translations: [Ganglion, right wrist] 09-02-2022 Episodic Other connective tissue disease (4 sources) Enthesopathy of lower limb; Translations: [Other specified enthesopathies of unspecified lower limb, excluding foot] Onset: 5 12-25-2024 Episodic Other connective tissue disease (3 sources) Trochanteric bursitis of right hip; Translations: [Trochanteric bursitis, right hip] 12-25-2024 Episodic Other connective tissue disease (12 sources) Tendinitis of hip; Translations: [Other specified enthesopathies of unspecified lower limb, excluding foot] Episodic Other connective tissue disease (12 sources) Trochanteric bursitis; Translations: [Trochanteric bursitis, right hip] Episodic Other connective tissue disease (4 sources) Bilateral ganglion cyst of wrists; Translations: [Ganglion, right wrist] 11-30-2022 Episodic Other connective tissue disease (10 sources) Other symptoms and signs involving the musculoskeletal system; Translations: [Other musculoskeletal symptoms referable to limbs] Onset: 5 01-01-2025 Episodic Other connective tissue disease (1 source) Other bursal cyst, right wrist; Translations: [Other bursal cyst, right wrist] Onset: 5 Episodic Other connective tissue disease (2 sources) Other specified enthesopathies of unspecified lower limb, excluding foot; Translations: [Other specified enthesopathies of unspecified lower limb, excluding foot] Onset: 5 Episodic Other connective tissue disease (3 sources) Trochanteric bursitis, right hip; Translations: [Trochanteric bursitis, right hip] Onset: 5 Episodic Other gastrointestinal disorders (15 sources) Chronic constipation; Translations: [Other constipation] 01-18-2018 Episodic Other gastrointestinal disorders (2 sources) Other constipation; Translations: [Constipation, unspecified] Episodic Other lower respiratory disease (9 sources) Dyspnea on exertion; Translations: [Other forms of dyspnea] 02-10-2023 Episodic Other nervous system disorders (12 sources) Carpal tunnel syndrome; Translations: [Carpal tunnel syndrome, unspecified upper limb] Onset: 4 06-21-2022 Chronic Other nervous system disorders (2 sources) Carpal tunnel syndrome, unspecified upper limb; Translations: [Carpal tunnel syndrome] 09-02-2022 Chronic Other nervous system disorders (8 sources) Carpal tunnel syndrome of right wrist; Translations: [Carpal tunnel syndrome, right upper limb] 12-13-2024 Chronic Other nervous system disorders (1 source) Carpal tunnel syndrome, right upper limb; Translations: [Carpal tunnel syndrome, right upper limb] Onset: 5 Chronic Other non-traumatic joint disorders (3 sources) Derangement of joint of hip; Translations: [Other specific joint derangements of unspecified hip, not elsewhere classified] Onset: 5 12-25-2024 Chronic Other non-traumatic joint disorders (4 sources) Snapping hip Chronic Other non-traumatic joint disorders (8 sources) Snapping right hip; Translations: [Other specific joint derangements of right hip, not elsewhere classified] 12-23-2024 Chronic Other non-traumatic joint disorders (2 sources) Other specific joint derangements of unspecified hip, not elsewhere classified; Translations: [Other specific joint derangements of unspecified hip, not elsewhere classified] Onset: 5 Chronic Other non-traumatic joint disorders (1 source) Derangement of joint of hip 12-25-2024 Episodic Other non-traumatic joint disorders (12 sources) Hip pain; Translations: [Pain in right hip] Onset: 5 12-13-2024 Episodic Other non-traumatic joint disorders (3 sources) Pain in right hip; Translations: [Pain in right hip] Onset: 5 Episodic Other nutritional; endocrine; and metabolic disorders (8 sources) Obesity; Translations: [Obesity, unspecified] 06-19-2024 Chronic Residual codes; unclassified (15 sources) Sleep apnea; Translations: [Sleep apnea, unspecified] 06-18-2020 Chronic Residual codes; unclassified (3 sources) Sleep apnea, unspecified; Translations: [Unspecified sleep apnea] 09-14-2022 Chronic Residual codes; unclassified (1 source) Obstructive sleep apnea syndrome; Translations: [Obstructive sleep apnea (adult) (pediatric)] Onset: 3 03-15-2023 Chronic Residual codes; unclassified (15 sources) Disturbance in sleep behavior; Translations: [Sleep disorder, unspecified] 06-18-2020 Episodic Residual codes; unclassified (15 sources) H/O: major abdominal surgery; Translations: [Other specified postprocedural states] 06-18-2020 Episodic Comment on above: Kidney stones Residual codes; unclassified (15 sources) History of endometrial ablation; Translations: [Other specified postprocedural states] 06-18-2020 Episodic Residual codes; unclassified (15 sources) History of colonoscopy; Translations: [Other specified postprocedural states] 06-18-2020 Episodic Comment on above: 04/29/2009 Spondylosis; intervertebral disc disorders; other back problems (15 sources) Degeneration of lumbar intervertebral disc; Translations: [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] 12-25-2024 Chronic Spondylosis; intervertebral disc disorders; other back problems (18 sources) Cervical radiculopathy; Translations: [Radiculopathy, cervical region] Onset: 2 Episodic Unclassified (4 sources) M51.369 - Other intervertebral disc degeneration, lumbar region without mention of lumbar back pain or lower extremity pain,M24.859 - Other specific joint derangements of unspecified hip, not elsewhere classified,M76.899 - Other specified enthesopathies of unspecified lower limb, excluding foot,M70.61 - Trochanteric bursitis, right hip Unclassified (1 source) Low back pain, unspecified; Translations: [Low back pain, unspecified] Onset: 5 Unclassified (2 sources) Other intervertebral disc degeneration, lumbar region without mention of lumbar back pain or lower extremity pain; Translations: [Other intervertebral disc degeneration, lumbar region without mention of lumbar back pain or lower extremity pain] Onset: 5 Urinary tract infections (1 source) Acute lower urinary tract infection; Translations: [Urinary tract infection, site not specified] Episodic Viral infection (15 sources) Recurrent herpes simplex labialis; Translations: [Herpesviral vesicular dermatitis] 06-18-2020 Episodic Past or Other Problems Problem Classification Problem Date Documented Date Episodic/Chronic Other female genital disorders (4 sources) Cervical intraepithelial neoplasia grade 1; Translations: [Mild cervical dysplasia] Onset: 11-14-2011 11-14-2011 Episodic Other lower respiratory disease (2 sources) Other forms of dyspnea; Translations: [Other respiratory abnormalities] Onset: 06-24-2024 02-10-2023 Episodic Other screening for suspected conditions (not mental disorders or infectious disease) (13 sources) Abnormal cervical Papanicolaou smear; Translations: [Unspecified abnormal cytological findings in specimens from cervix uteri] Onset: 07-02-2024 06-29-2022 Episodic Unclassified (1 source) Other intervertebral disc degeneration, lumbar region without mention of lumbar back pain or lower extremity pain; Translations: [Other intervertebral disc degeneration, lumbar region without mention of lumbar back pain or lower extremity pain] Onset: 01-01-2025 Results Test Name Value Interpretation Reference Range Facility Lumbar Spine 2 or 3 Viewson 12-23-2024 Lumbar Spine 2 or 3 Views [facility] Services [address] [place], [place] [address] Lumbar Spine 2 or 3 Views MR#: [id number] Acct: [id number] Name: DIMPLE SOTO Rep #: [id number] : 1970 F 54 From: Savage Franco MD PCP: Dr. Guilherme Martínez DO Status: DEP AMB Study: Lumbar Spine 2 or 3 Views Date of Exam: Exam# [id number] Ordering Dr: Bertram Del Castillo DO EXAM: XR Lumbosacral Spine, 2 or 3 Views CLINICAL INDICATION: PAIN TECHNIQUE: Frontal and lateral views of the lumbar spine and sacrum. COMPARISON: No relevant prior studies available. FINDINGS: VERTEBRAE: Mild endplate degenerative changes and disc degeneration of L4 the S1. No acute fracture. Normal alignment. SACRUM/COCCYX: Unremarkable as visualized. No acute fracture. DISC SPACES: No acute findings. No significant narrowing. SOFT TISSUES: Unremarkable. GASTROINTESTINAL TRACT: Fecal retention in the colon consistent with constipation. RAD/Lumbar Spine 2 or 3 Views IMPRESSION: 1. Degenerative changes as above. 2. Fecal retention in the colon consistent with constipation. Reading Location: [id number] CC: Dr. Guilherme Martínez DO; Dr. Bertram Del Castillo DO Fill Manager: Signed Normal [facility] Orthopedic Visit Reporton Orthopedic Visit Report [facility] [address] [place] [address] OFFICE VISIT Date of Service: 12/23/24 MR#: [id number] Acct: [id number] Name: DIMPLE SOTO Rep #: [id number] : 1970 Provider: Dr. Bertram shaffer DO Age/Sex: 54/F Location: [facility] [place] Status: Signed Intake Vital Signs 12/13/24 10:40 Height 5 ft 8 in Weight: 201 lb 6 oz BMI 30.6 Intake Visit Reasons: RIGHT HIP Accompanied by: Self Allergies latex Allergy (Intermediate, Verified 12/23/24 13:14) rash Penicillins Allergy (Verified 12/23/24 13:14) Swelling Bees Allergy (Uncoded 12/23/24 13:14) Shortness of breath Medications ???Medication ???Instructions ???Recorded ???Confirmed ???Type cholecalciferol (vitamin D3) 125 125 mcg PO DAILY 09/02/22 12/23/24 History mcg (5,000 unit) capsule vitamin B complex (B 1 tab PO DAILY 09/02/22 12/23/24 H istory Complex-Vitamin B12 tablet) PFSH Medical History Right hip pain Right carpal tunnel syndrome Mobitz type 2 second degree atrioventricular block Palpitations Ganglion cyst of both wrists Abnormal Pap smear of cervix Carpal tunnel syndrome BPPV (benign paroxysmal positional vertigo) Fatigue Carotid bruit Dizziness Chest pain Cervical radiculopathy Arthritis of left wrist Alcohol use Non-smoker CPAP (continuous positive airway pressure) dependence Restless legs Migraine headache Anxiety Sleep apnea in adult Recurrent cold sores Sleep disturbance, unspecified Encounter for preventative adult health care examination Menorrhagia Anxiety about health Chronic constipation Kidney stones Chronic headaches Surgical History History of endometrial ablation History of colonoscopy History of kidney surgery Family History Mother Breast cancer Uncle Colon cancer Father Cancer Social History Smoking Status: Never smoker second hand exposure: No alcohol intake: current alcohol intake frequency: a few times a month substance use type: does not use caffeine: Yes Type: coffee Number of servings: 1 what type of physical activity do you participate in: none frequency: does not exercise HPI RIGHT HIP Details: This documentation accurately reflects the service provided and the decisions made by me, Dr. Bertram Del Castillo, DO 12/23/24 0835. Part of today???s visit was documented by Rosita ALVARENGA, acting as scribe. DIMPLE SOTO is a 54 year old F new to me with medical history significant for but not limited to obesity, mitral regurgitation, Mobitz type II secondary AV block, anxiety, here today for right hip pain that she has been having 2-3 months. She states that she has always had issues with her hips and them popping in and out of place since childhood. She states that if she is not paying attention and moves the wrong way her hip will pop out of place causing her to fall as it has become more painful. she has never had any trauma to the area. She does have weakness in her leg and at times has to use her hand to assist. Her pain is an aching pain 'in the joint in the mornings but as her day goes on her pain worsens and becomes more of a sharp pain. She denies radiating pain. Denies numbness, tingling or other associated symptoms. She does have some back pain and was told 10 years ago that she has DDD of the lumbar spine. She denies doing PT or injections. At times she does take Ibuprofen for pain. Anterior lateral pain at time when using the hip. When her hip does pop it is painful. Ortho Exam General General: Yes no acute distress and Yes well groomed Neurologic: Yes alert and Yes oriented x3 Psychologic: Yes reasonable and appropriate Right Hip Skin: No Ecchymosis, No soft tissue swelling and No Erythema Impingement Test: 2 Labral Stress Test: 2 Special Tests: No iliopsoas snap, No IT band snap, Yes TTP Greater Troch, Yes RROM flexion pain, Yes C sign, Yes FADIR, Yes FADER and Yes Illiotibial band tenderness HIP: tender over troch bursa IT band tenderness non tender greater sciatic notch PSIS IR 15 with groin pain ER 35 with groin pain deep lateral pain with abduction pain with hyper flexion 95 FADIR + pain with resisted hip flexion 5/5 strength Supplemental Info 12/23/2024 x-ray lumbar spine there is narrowing of the disc space between L4 and L5 with a mild scoliosis more of an asymmetry 12/13/2024 x-ray right hip: Preserved joint space no acute findings of note there is degenerative changes of the lower lumbar spine Coding Level of Care Code Off vis,est,level 4 Diagnoses Degeneration of intervertebral disc of lumbar region with discog (more content not included)... Normal [facility] HIP, UNI W/ Pelvis 2-3 Views on 12-13-2024 HIP, UNI W/ Pelvis 2-3 Views [facility] Imaging Services [address] [place] [address] HIP, UNI W/ Pelvis 2-3 Views MR#: [id number] Acct: [id number] Name: DIMPLE SOTO Rep #: [id number] : 1970 F 54 From: Vinh Rabago MD PCP: Dr. Guilherme Martínez DO Status: DEP AMB Study: HIP, UNI W/ Pelvis 2-3 Views Date of Exam: 12/28 Exam# [id number] Ordering Dr: Umair Shabazz MD PROCEDURE: HIP, UNI W/ PELVIS 2-3 VIEWS 12/13/2024 REASON FOR EXAM: PAIN, NKI TECHNIQUE: Procedure Code: RADHP Modality: DX Procedure: HIP, UNI W/ PELVIS 2-3 VIEWS AP view of the pelvis with AP and frogleg lateral views of the right hip COMPARISON: None FINDINGS: No displaced fracture or traumatic malalignment. Slightly prominent right femoral head neck junction. There is hvzt-er-sndeqdrw joint space narrowing in the right hip, and mild in the left. Degenerative changes of the lower lumbar spine and pubic symphysis. Zipper projects over the lower lumbar spine. RAD/HIP, UNI W/ Pelvis 2-3 Views IMPRESSION: Zncz-rn-ifvqprav right hip osteoarthritis. Reading Location: [id number] CC: Dr. Guilherme Martínez DO; Dr. Umair Shabazz MD Fill Manager: Signed Normal [facility] Orthopedic Visit Reporton Orthopedic Visit Report [facility] [address] [place] [address] OFFICE VISIT Date of Service: 12/13/24 MR#: [id number] Acct: [id number] Name: DIMPLE SOTO Rep #: [id number] : 1970 Provider: Dr. Umair brown MD Age/Sex: 54/F Location: [facility] [place] Status: Signed Intake Vital Signs 06/19/24 13:04 12/13/24 10:40 Height 5 ft 8 in 5 ft 8 in Weight: 205 lb 201 lb 6 oz BMI 31.1 30.6 BP 120/90 H Blood Pressure Location Lt brachial Position Sitting Respiration 16 Pulse 86 Pulse Source Monitor Temp 97.4 F L Temp Source Temporal Pulse Oximetry (%) 97 Oxygen Delivery Method room air Intake Visit Reasons: BL HANDS Chief Complaint: Bilateral Hands/Right Hip Accompanied by: Self Is patient in pain?: No (numbness) Allergies latex Allergy (Intermediate, Verified 12/13/24 10:41) rash Penicillins Allergy (Verified 12/13/24 10:41) Swelling Bees Allergy (Uncoded 12/13/24 10:41) Shortness of breath Medications ???Medication ???Instructions ???Recorded ???Confirmed ???Type cholecalciferol (vitamin D3) 125 125 mcg PO DAILY 09/02/22 12/13/24 History mcg (5,000 unit) capsule vitamin B complex (B 1 tab PO DAILY 09/02/22 12/13/24 H istory Complex-Vitamin B12 tablet) [facility] Medical History Right carpal tunnel syndrome Mobitz type 2 second degree atrioventricular block Palpitations Ganglion cyst of both wrists Abnormal Pap smear of cervix Carpal tunnel syndrome BPPV (benign paroxysmal positional vertigo) Fatigue Carotid bruit Dizziness Chest pain Cervical radiculopathy Arthritis of left wrist Alcohol use Non-smoker CPAP (continuous positive airway pressure) dependence Restless legs Migraine headache Anxiety Sleep apnea in adult Recurrent cold sores Sleep disturbance, unspecified Encounter for preventative adult health care examination Menorrhagia Anxiety about health Chronic constipation Kidney stones Chronic headaches Surgical History History of endometrial ablation History of colonoscopy History of kidney surgery Family History Mother Breast cancer Uncle Colon cancer Father Cancer Social History Smoking Status: Never smoker second hand exposure: No alcohol intake: current alcohol intake frequency: a few times a month substance use type: does not use caffeine: Yes Type: coffee Number of servings: 1 what type of physical activity do you participate in: none frequency: does not exercise HPI BL HANDS Details: This documentation accurately reflects the service provided and the decisions made by me, Dr. Umair Shabazz MD 12/13/24 2710. Part of today???s visit was documented by [ ], acting as scribe. DIMPLE SOTO is a 54 year old F here today for FU Right CTS. 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 The numbness is in the hand worse in the night will sometimes wake her up. Supplemental Info Ordering Doctor: Guilherme Mratínez DATE OF SERVICE: 06/20/22 Indication: Intermittent numbness of both hands for many years. Symptoms are most prominent during sleep. No axial or radicular neck pain. Evaluate for entrapment neuropathy. Findings: Nerve conduction studies were performed in the right and left upper extremities. The right median motor study recording the abductor pollicis brevis showed a normal amplitude, prolonged distal latency and normal conduction velocity. The right ulnar motor study recording the abductor digiti minimi showed a normal amplitude, normal distal latency and normal conduction velocity. No conduction block or focal slowing was present across the elbow. The right median sensory response recording digit two showed a normal amplitude, prolonged latency and markedly slowed conduction velocity. The right ulnar sensory response recording digit five showed a normal amplitude, latency and conduction velocity. The right radial sensory response recording over the extensor snuff box showed a normal amplitude, latency and conduction velocity. The left median motor study recording the abductor pollicis brevis showed a normal amplitude, normal distal latency and normal conduction velocity. The left ulnar motor study recording the abductor digiti minimi showed a normal amplitude, normal distal latency and normal conduction velocity. No conduction block or focal slowing was present across the elbow. The left median sensory response recording digit two showed a normal amplitude, latency and conduction velocity. The left ulnar sensory respon (more content not included)... Normal [facility] CNOVon 07-26-2024 CNOV Office Visit (OBGYWM) BRITTANY,DIMPLE Scott ([id number]) 1970 F Date Time Provider Department 07/26/24 9:20 AM MARK GLASS OBGYWM During your visit today, we recorded the following information about you: Blood pressure Weight Height 100/62 91.6 kg 1.702 m Mark Glass MD 07/26/2024 9:57 AM Signed Dimple is a 54 year old who presents for an annual gynecologic exam without complaints. Postmenopausal: unsure- had ablaton Had hot flashes and night sweats last year that have improved HRT use: No. Age at Menarche: 12 Still get period: No LMP: had ablaton Menses: no menses- had ablatoin Menstrual flow: N/A Bleeding amount bothersome: N/A Bleeding between periods: No Period symptoms: None HPV vaccine: No Last pap smear: 02/17/2022 History of abnormal pap: Yes Colposcopy: Yes: 2018 Leep: No. Cone biopsy: No. Bothersome pelvic pain: No Last mammogram: 2021 normal History of abnormal mammogram: No OB History Gravida6 Para6 Term0 Preterm0 AB0 Living6 SAB0 IAB0 Ectopic0 Multiple0 Live Births0 Microbiology Supervisor History LMP: LMP Unknown, Ablation Age at Menarche: Age at First : Age at Menopause: Microbiology Supervisor History Comments: Sexual Activity: Yes; Male Contraception: Vasectomy PAST MEDICAL HISTORY Diagnosis Date Arthritis Atrioventricular block, second degree BPPV (benign paroxysmal positional vertigo) Chronic fatigue syndrome Chronic headaches Constipation Generalized anxiety disorder History of continuous positive airway pressure (CPAP) therapy Kidney stones Restless leg syndrome Sleep apnea, obstructive intermittently uses prescribed CPAP PAST SURGICAL HISTORY Procedure Laterality Date HYSTEROSCOPY,W/ENDOM ETRIAL ABLATION 01/18/2018 PAST SURGICAL HISTORY OF kidney stone FAMILY HISTORY Problem Relation Age of Onset Breast Cancer Mother Cancer Father Colon Cancer Paternal Uncle SOCIAL HISTORY Social History Tobacco Use Smoking status: Never Smokeless tobacco: Never Vaping Use Vaping status: Never Used Substance Use Topics Alcohol use: Yes Comment: occasionally Drug use: No REVIEW OF SYSTEMS Abdomen: No abdominal pain, nausea, vomiting, diarrhea, or constipation. No bloating, early satiety, indigestion, or increased flatulence. Bladder: No dysuria, gross hematuria, urinary frequency, urinary urgency, or incontinence Breast: No breast lumps, nipple d/c, overlying skin changes, redness or skin retraction Allergies and current medication updated:Yes SENSITIVE EXAM: The sensitive examination was discussed with the Patient or Patient's Authorized Superintendent Job. As applicable, any other physician, advance practice provider, medical student, or other health professional student that will be observing or involved in the sensitive examination for educational or training purposes was discussed with the Patient or Authorized Superintendent Job. The Patient or Authorized Superintendent Job has agreed to proceed with the sensitive examination. (Sensitive examination includes inspection and/or palpation of the breasts, pelvis, prostate and anorectal regions). EXAM: Ht 5' 7 (1.70m) Wt 202 lb (91.6kg) BMI 31.63 kg/(m2). GENERAL: pleasant, female in no apparent distress HEENT: Normocephalic and atraumatic NECK: full range of motion DERMATOLOGY: Normal, without lesions, non-icteric, and non-hirsute BREAST: soft, non-tender, symmetric, no dominant mass, normal nipple-areolar complex, no lymphadenopathy, and no nipple discharge CHEST: Normal inspiratory effort ABDOMEN: soft, non-tender, and no masses PELVIC: external genitalia normal, normal Bartholin's glands, urethra, Le Grand's glands, no vulvar lesions, no cervical lesions, good vaginal support, physiologic discharge present, normal appearing perineal body and perianal region BIMANUAL: uterus normal size, shape and consistency, no adnexal masses, and non-tender RECTOVAGINAL: deferred. NEURO: exam grossly non-focal EXTREMITIES: normal ASSESSMENT/PLAN: 1) Health maintenance: Pap done with HPV. Mammogram up to date. Followed by PCP and completed at [facility]. Nutrition, exercise and routine health maintenance exams reviewed. Colon cancer screening: Patient completed in [place] per her report. She is going to check if she is due and message or call for order if needed. TSH/lipids/glucose: followed by PCP 2) Follow up one year or sooner as needed Mark Glass DO Allergies As of Date: 07/26/2024 Noted Allergy Reaction LATEX 02/21/2018 2 - Rash BEES 02/10/2023 12 - Shortness of Breath PENICILLINS 04/03/2009 2 - Rash Date Reviewed: 07/26/2024 Reviewed by: Ruth Ann Nails LPN - Fully Assessed Reason for Visit: Well Woman [1463] Primary Visit Diagnosis:Encounter for gynecological examination (general) (routine) without abnormal findings [Z01.419] Other Visit Diagnoses:Enco (more content not included)... Normal [facility] HIGH RISK HUMAN PAPILLOMA ADAMA (HPV), PCR FOR DETECTION AND GENOTYPINGon 07-26-2024 HPV 16 Ag Ql (Unsp spec) Not detected Normal Not detec haylee [facility] Comment on above: Order Comment: Speci men Type: FLUID SPECIMEN Ordering Facility: [facility] Address: [address] [place] [address] Performed By: #### H PVHRT #### [facility] CLIA [id number] [address] [place] [address] [place] HPV 18 Ag Ql (Unsp spec) Not detected Normal Not detec haylee [facility] Comment on above: Order Comment: Speci men Type: FLUID SPECIMEN Ordering Facility: [facility] Address: [address] [place] [address] Performed By: #### H PVHRT #### [facility] CLIA [id number] [address] [place] [address] [place] HPV 31+33+35+39+45+51+52+56+ 58+59+66+68 DNA RENE+probe Ql (Cvx) Not detected Normal Not detected [facility] Comment on above: Order Comment: Speci men Type: FLUID SPECIMEN Ordering Facility: [facility] Address: [address] [place] [address] Result Comment: High Risk HPV Other Type includes HPV types 31, 33, 35, 39, 45, 51, 52, 56, 58, 59, 66 and 68. Performed By: #### H PVHRT #### [facility] CLIA [id number] [address] [place] [address] [place] PAP TESTon 07-26-2024 ADEQUACY Normal [facility] Comment on above: Order Comment: Speci men Type: FLUID SPECIMEN Ordering Facility: [facility] Address: [address] [place] [address] Result Comment: Sati sfactory for interpretation. Transformation zone present Performed By: #### L [id number] #### [facility] CLIA [id number] [address] [place] [address] [place] [facility] CLIA [id number] [address] [place] [address] [place] CASE REPORT Normal [facility] Comment on above: Order Comment: Speci men Type: FLUID SPECIMEN Ordering Facility: [facility] Address: [address] [place] [address] Result Comment: Gyne cologic Cytology Report Case: [id number] Authorizing Provider: Mark Glass MD Collected: 07/26/2024 10:06 AM Ordering Location: OB/Gynecology Received: 07/26/2024 12:04 PM First Screen: [place], Calli, CT, ASCP Rescreen: [place], [place], ASCP Specimen: Pap Test, ThinPrep, Cervix Performed By: #### L [id number] #### [facility] CLIA [id number] [address] [place] [address] [place] [facility] CLIA [id number] [address] [place] [address] [place] CLINICAL HISTORY, CYTOLOGY, DIRECTOR OF DIAGNOSTIC IMAGING Previous ASCUS Normal [facility] Comment on above: Order Comment: Speci men Type: FLUID SPECIMEN Ordering Facility: [facility] Address: [address] [place] [address] Performed By: #### L [id number] #### [facility] CLIA [id number] [address] [place] [address] [place] [facility] CLIA [id number] [address] [place] [address] [place] FINAL PERFORMING LAB Normal [facility] Comment on above: Order Comment: Speci men Type: FLUID SPECIMEN Ordering Facility: [facility] Address: [address] [place] [address] Result Comment: Tech nical component, stone driller screening performed at: [facility], [address] [place] [address] CLIA: [id number] Diagnostic interpretation performed at: [facility], [address] [place] [address] CLIA# [id number] Manager Manufacturing: Savage Harrison MD Performed By: #### L [id number] #### [facility] CLIA [id number] [address] [place] [address] [place] [facility] CLIA [id number] [address] [place], [place] [id number] [place] INTERPRETATION, CYTOLOGY, DIRECTOR OF DIAGNOSTIC IMAGING Normal [facility] Comment on above: Order Comment: Speci men Type: FLUID SPECIMEN Ordering Facility: [facility] Address: [address] [place] [address] Result Comment: Nega tive for intraepithelial lesion or malignancy. at 1225 EDT Performed By: #### L [id number] #### [facility] CLIA [id number] [address] [place] [address] [place] [facility] CLIA [id number] [address] [place] [address] [place] LMP 01/21/2015 Normal [facility] Comment on above: Order Comment: Speci men Type: FLUID SPECIMEN Ordering Facility: [facility] Address: [address] [place] [address] Performed By: #### L [id number] #### [facility] CLIA [id number] [address] [place] [address] [place] [facility] CLIA [id number] [address] [place] [address] [place] PAP DISCLAIMER COMMENT The Pap Smear is a screening test for cervical cancer. False negative results occur with all screening tests, emphasizing the need for rescreening at recommended intervals, and clinical correlation. Normal [facility] Comment on above: Order Comment: Speci men Type: FLUID SPECIMEN Ordering Facility: [facility] Address: [address] [place] [address] Performed By: #### L [id number] #### [facility] CLIA [id number] [address] [place] [address] [place] [facility] CLIA [id number] [address] [place], [place] [address] [place] PAP FLOOR POLISHER COMMENT This specimen has been analyzed by the FDA-approved TweetwallTM System, which uses digital imaging and an enhanced artificial intelligence image analysis algorithm to identify hassan of interest on the microscopic slide, to assist the land appraiser and pathologist in evaluating cells on ThinPrep Pap tests. Following analysis, hassan of interest on the microscopic slide selected by the algorithm are reviewed by a land appraiser. If a sample requires hierarchical review, the pathologist will review the same hassan of interest selected by the algorithm prior to final interpretation. Normal [facility] Comment on above: Order Comment: Speci men Type: FLUID SPECIMEN Ordering Facility: [facility] Address: [address] [place] [address] Performed By: #### L [id number] #### [facility] CLIA [id number] [address] [place] [address] OF [facility] CLIA [id number] [address] [place] [address] Breast imaging reportOrdered By: Emily Syed on 06-28-2024 Study report [facility] Imaging Services [address] [place] [id number] SCRN MAMM (CAD)W/CASTILLO BILAT MR#: [id number] Acct: [id number] Name: DIMPLE SOTO Rep #: [id number] : 1970 F 54 From: Rosy Syed MD PCP: Dr. Guilherme Martínez DO Status: RE G CLI Study:SCRN MAMM (CAD)W/CASTILLO BILAT Date of Exa m: 06/28/24 Exam# [id number] Ordering Dr: Do hansel Martínez DO EXAM: SCRN MAMM (CAD)W/CASTILLO BILAT 06/28/2024 CLINICAL HISTORY: F, Age 54 y/o , SCREENING TECHNIQUE: Bilateral screening digital breast tomosynthesis with 2D and 3D images. Computeraided detection. COMPARISON: Prior exam(s) dated 02/10/2022. FINDINGS: TISSUE DENSITY: The breast tissue is heterogenously dense, which may obscure small masses. The mammogram demonstrates that the patient has dense breasts. Supplemental screening with whole breast ultrasound or MRI may be considered for further evaluation. Bilateral Breast Mammographic Findings: No significant masses, calcifications or other abnormalities are identified. BI/SCRN MAMM (CAD)W/CASTILLO BILAT IMPRESSION: Right Breast: BIRADS 1 NEGATIVE. Left Breast: BIRADS 1 NEGATIVE. OVERALL FINAL ASSESSMENT: BIRADS 1 NEGATIVE. RECOMMENDATION: Routine annual follow-up in 1 Year A letter with findings and recommendations will be mailed to the patient. Reading Location: [facility] CC: Dr. Guilherme Martínez, ~ Fill Manager: Signed [facility] SCRN MAMM (CAD)W/CASTILLO BILATo n 06-28-2024 SCRN MAMM (CAD)W/CASTILLO BILAT [facility] Imaging Services [address] [place] [address] [id number] SCRN MAMM (CAD)W/CASTILLO BILAT MR#: [id number] Acct: [id number] Name: DIMPLE SOTO Rep #: [id number] : 1970 F 54 From: Emily Syed MD PCP: Dr. Guilherme Martínez, Status: REG CLI Study: SCRN MAMM (CAD)W/CASTILLO BILAT Date of Exam: 06/05 07/28 Exam# [id number] Ordering Dr: Guilherme Martínez DO EXAM: SCRN MAMM (CAD)W/CASTILLO BILAT 06/28/2024 CLINICAL HISTORY: F, Age 54 y/o , SCREENING TECHNIQUE: Bilateral screening digital breast tomosynthesis with 2D and 3D images. Computer aided detection. COMPARISON: Prior exam(s) dated 02/10/2022. FINDINGS: TISSUE DENSITY: The breast tissue is heterogenously dense, which may obscure small masses. The mammogram demonstrates that the patient has dense breasts. Supplemental screening with whole breast ultrasound or MRI may be considered for further evaluation. Bilateral Breast Mammographic Findings: No significant masses, calcifications or other abnormalities are identified. BI/SCRN MAMM (CAD)W/CASTILLO BILAT IMPRESSION: Right Breast: BIRADS 1 NEGATIVE. Left Breast: BIRADS 1 NEGATIVE. OVERALL FINAL ASSESSMENT: BIRADS 1 NEGATIVE. RECOMMENDATION: Routine annual follow-up in 1 Year A letter with findings and recommendations will be mailed to the patient. Reading Location: [id number] CC: Dr. Guilherme Martínez, Fill Manager: Signed Normal [facility] Absolute neutrophil countOrd ered By: Guilherme Martínez on 06-19-2024 Neutrophils (Bld) [#/Vol] 3.8 10*3/uL 2.0-7.7 [facility] Anion gap in Serum or Plasma Ordered By: Guilherme Martínez on 06-19-2024 Anion gap [Moles/Vol] 12 mmol/L 5-15 [facility] BUN/creatinine ratioOrdered By: Guilherme Martínez on 06-19-2024 Urea nitrogen/Creatinine [Mass ratio] 32.6 mg/mg High 10-20 [facility] Basophil percentageOrdered B y: Guilherme Martínez on 06-19-2024 Basophils/100 WBC (Bld) 0.3 % 0-1 [facility] Bilirubin, totalOrdered By: Guilherme Martínez on 06-19-2024 Bilirubin [Mass/Vol] 0.25 mg/dL 0.00-1.30 [facility] CBC W/Diff, Automatedon 06-04 Absolute Lymph 2.07 X10 3/uL Normal 0.83-4.51 [facility] Comment on above: Performed By: #### L 500.4050, L100.0100, L500.4100, [id number] #### [facility] [address] [place], [address] Absolute Neut 3.8 X10 3/uL Normal 2.0-7.7 [facility] Comment on above: Performed By: #### L 500.4050, L100.0100, L500.4100, [id number] #### [facility] [address] [place], [address] Basophils/100 WBC (Bld) 0.3 % Normal 0-1 [facility] Comment on above: Performed By: #### L 500.4050, L100.0100, L500.4100, [id number] #### [facility] [address] [place], [address] Eosinophils/100 WBC (Bld) 1.4 % Normal 0-5 [facility] Comment on above: Performed By: #### L 500.4050, L100.0100, L500.4100, [id number] #### [facility] [address] [place], [address] Erythrocyte distribution width (RBC) [Ratio] 13.7 % Normal 11.6-14.6 [facility] Comment on above: Performed By: #### L 500.4050, L100.0100, L500.4100, [id number] #### [facility] [address] [place], [address] Hematocrit (Bld) [Volume fraction] 40.8 % Normal 37-47 [facility] Comment on above: Performed By: #### L 500.4050, L100.0100, L500.4100, [id number] #### [facility] [address] [place], [address] Hemoglobin (Bld) [Mass/Vol] 13.5 g/dL Normal 12.0-15.0 [facility] Comment on above: Performed By: #### L 500.4050, L100.0100, L500.4100, [id number] #### [facility] [address] [place], [address] IG% 0.300 Normal 0.0-0.9 [facility] Comment on above: Result Comment: IG% - Immature Granulocytes (promyelocytes, myelocytes and metamyelocytes) > 1% indicates that a LEFT SHIFT is Present. Performed By: #### L 500.4050, L100.0100, L500.4100, [id number] #### [facility] [address] [place], [address] Lymphocytes/100 WBC (Bld) 31.7 % Normal 19-41 [facility] Comment on above: Performed By: #### L 500.4050, L100.0100, L500.4100, [id number] #### [facility] [address] [place], [address] MCH (RBC) [Entitic mass] 28.1 pg Normal 27.0-32.0 [facility] Comment on above: Performed By: #### L 500.4050, L100.0100, L500.4100, [id number] #### [facility] [address] [place], [address] MCHC (RBC) [Mass/Vol] 33.1 g/dL Normal 32-36 [facility] Comment on above: Performed By: #### L 500.4050, L100.0100, L500.4100, [id number] #### [facility] [address] [place], [address] MCV (RBC) [Entitic vol] 85.0 fL Normal 81-99 [facility] Comment on above: Performed By: #### L 500.4050, L100.0100, L500.4100, [id number] #### [facility] [address] [place], [address] Monocytes/100 WBC (Bld) 8.4 % Normal 0-10 [facility] Comment on above: Performed By: #### L 500.4050, L100.0100, L500.4100, [id number] #### [facility] [address] [place], [address] Neutrophils/100 WBC (Bld) 57.9 % Normal 47-70 [facility] Comment on above: Performed By: #### L 500.4050, L100.0100, L500.4100, [id number] #### [facility] [address] [place], [address] Nucleated RBC (Bld) [#/Vol] 0 10*3/uL Normal 0-5 [facility] Comment on above: Performed By: #### L 500.4050, L100.0100, L500.4100, [id number] #### [facility] [address] [place], [address] Platelet mean volume (Bld) [Entitic vol] 9.9 fL Normal 6.2-12.0 [facility] Comment on above: Performed By: #### L 500.4050, L100.0100, L500.4100, [id number] #### [facility] [address] [place], [address] Platelets (Bld) [#/Vol] 289 10*3/uL Normal 150-450 [facility] Comment on above: Performed By: #### L 500.4050, L100.0100, L500.4100, [id number] #### [facility] [address] [place], [address] RBC (Bld) [#/Vol] 4.80 10*6/uL Normal 4.2-5.4 [facility] Comment on above: Performed By: #### L 500.4050, L100.0100, L500.4100, [id number] #### [facility] [address] [place], [address] RDW SD 42.3 fl Normal 35.1-43.9 [facility] Comment on above: Performed By: #### L 500.4050, L100.0100, L500.4100, [id number] #### [facility] [address] [place], [address] WBC (Bld) [#/Vol] 6.5 10*3/uL Normal 4.4-11.0 [facility] Comment on above: Performed By: #### L 500.4050, L100.0100, L500.4100, [id number] #### [facility] [address] [place], [address] Calculated very low density lipoprotein (VLDL) cholesterol measurementOrdered By: Guilherme Martínez on 06-19-2024 VLDL Cholesterol 33 mg/dL 5-40 [facility] Carbon dioxide, total [Moles /volume] in Central venous bloodOrdered By: Guilherme Martínez on 06-19-2024 CO2 [Moles/Vol] 24.8 mmol/L 21.0-32.0 [facility] Chloride assayOrdered By: Do hansel Martínez on 06-19-2024 Chloride [Moles/Vol] 104 mmol/L 98-108 [facility] Comprehensive Metabolic Prof ilon 06-19-2024 Albumin [Mass/Vol] 4.3 g/dL Normal 3.5-5.0 [facility] Comment on above: Performed By: #### L 500.4050, L100.0100, L500.4100, [id number] #### [facility] [address] [place], [address] Albumin/Globulin [Mass ratio] 1.2 {ratio} Normal 0.9-2.4 [facility] Comment on above: Performed By: #### L 500.4050, L100.0100, L500.4100, [id number] #### [facility] [address] [place], [address] ALK PHOS 108 U/L High 35-104 [facility] Comment on above: Performed By: #### L 500.4050, L100.0100, L500.4100, [id number] #### [facility] [address] [place], [address] ALT [Catalytic activity/Vol] 7 U/L Normal <=34 [facility] Comment on above: Performed By: #### L 500.4050, L100.0100, L500.4100, [id number] #### [facility] [address] [place], [address] AST [Catalytic activity/Vol] 17 U/L Normal <=31 [facility] Comment on above: Performed By: #### L 500.4050, L100.0100, L500.4100, [id number] #### [facility] [address] [place], [address] Bilirubin [Mass/Vol] 0.25 mg/dL Normal 0.00-1.30 [facility] Comment on above: Performed By: #### L 500.4050, L100.0100, L500.4100, [id number] #### [facility] [address] [place], [address] BUN/CRE 32.6 RATIO High 10-20 [facility] Comment on above: Performed By: #### L 500.4050, L100.0100, L500.4100, [id number] #### [facility] [address] [place], [address] Calcium [Mass/Vol] 9.5 mg/dL Normal 7.6-11.0 [facility] Comment on above: Performed By: #### L 500.4050, L100.0100, L500.4100, [id number] #### [facility] [address] [place], [address] Chloride [Moles/Vol] 104 mmol/L Normal 98-108 [facility] Comment on above: Performed By: #### L 500.4050, L100.0100, L500.4100, [id number] #### [facility] [address] [place], [address] CO2 [Moles/Vol] 24.8 mmol/L Normal 21.0-32.0 [facility] Comment on above: Performed By: #### L 500.4050, L100.0100, L500.4100, [id number] #### [facility] [address] [place], [address] Creatinine [Mass/Vol] 0.63 mg/dL Low 0.70-1.20 [facility] Comment on above: Performed By: #### L 500.4050, L100.0100, L500.4100, [id number] #### [facility] [address] [place], [address] GAP 12 Normal 5-15 [facility] Comment on above: Performed By: #### L 500.4050, L100.0100, L500.4100, [id number] #### [facility] [address] [place], [address] GFR/1.73 sq M.predicted among non-blacks MDRD (S/P/Bld) [Vol rate/Area] 105 mL/min/{1.73_m2} Normal >60 [facility] Comment on above: Result Comment: mL/m in/1.73m2 CKD-EPI Creatinine Equation (2020) Performed By: #### L 500.4050, L100.0100, L500.4100, [id number] #### [facility] [address] [place], [address] Globulin (S) [Mass/Vol] 3.4 g/dL Normal 2.2-4.2 [facility] Comment on above: Performed By: #### L 500.4050, L100.0100, L500.4100, [id number] #### [facility] [address] [place], [address] Glucose [Mass/Vol] 91 mg/dL Normal 70-99 [facility] Comment on above: Performed By: #### L 500.4050, L100.0100, L500.4100, [id number] #### [facility] [address] [place], [address] Potassium [Moles/Vol] 4.2 mmol/L Normal 3.3-5.1 [facility] Comment on above: Performed By: #### L 500.4050, L100.0100, L500.4100, L501.9520 #### [facility] [address] [place], [address] Sodium [Moles/Vol] 140 mmol/L Normal 133-145 [facility] Comment on above: Performed By: #### L 500.4050, L100.0100, L500.4100, [id number] #### [facility] [address] [place], [address] T PROT 7.7 g/dL Normal 5.9-8.4 [facility] Comment on above: Performed By: #### L 500.4050, L100.0100, L500.4100, L501.9520 #### [facility] [address] [place], [address] Urea nitrogen [Mass/Vol] 21 mg/dL High 4-19 [facility] Comment on above: Performed By: #### L 500.4050, L100.0100, L500.4100, [id number] #### [facility] [address] [place], [address] Eosinophil percentageOrdered By: Guilherme Brown on 06-19-2024 Eosinophils/100 WBC (Bld) 1.4 % 0-5 [facility] Erythrocyte distribution wid th (RBC) [Ratio]Ordered By: Guilherme Brown on 06-19-2024 Erythrocyte distribution width (RBC) [Entitic vol] 42.3 fL 35.1-43.9 [facility] Erythrocyte distribution wid th ratioOrdered By: Guilherme Brown on 06-19-2024 Erythrocyte distribution width (RBC) [Ratio] 13.7 % 11.6-14.6 [facility] GFR/1.73 sq M.predicted dominick g non-blacks MDRD (S/P/Bld) [Vol rate/Area]Ordered By: Guilherme Martínez on 06-19-2024 Estimated GFR (MDRD) Non-Af Amer 105 >60 [facility] Comment on above: mL/min/1.73m2 CKD-EP I Creatinine Equation (2020) Hematocrit Auto (Bld) [Volum e fraction]Ordered By: Guilherme Martínez on 06-19-2024 Hematocrit (Bld) [Volume fraction] 40.8 % 37-47 [facility] Hemoglobin measurementOrdere d By: Guilherme Martínez on 06-19-2024 Hemoglobin (Bld) [Mass/Vol] 13.5 g/dL 12.0-15.0 [facility] Immature granulocytes/100 WB C Auto (Bld)Ordered By: Guilherme Martínez on 06-19-2024 Immature granulocytes/100 WBC (Bld) 0.300 % 0.0-0.9 [facility] Comment on above: IG% - Immature Granu locytes (promyelocytes, myelocytes and metamyelocytes) > 1% indicates that a LEFT SHIFT is Present. Internal Medicine Office Vis sera 06-19-2024 Internal Medicine Office Visit [facility] [address] [place] [address] [place] [address] OFFICE VISIT Date of Service: 06/19/24 MR#: [id number] Acct: [id number] Name: DIMPLE SOTO Rep #: [id number] : 1970 Provider: Dr. Guilherme Up Br own, DO Age/Sex: 54/F Location: [facility] [place] Status: Signed Intake Vital Signs 02/08/23 14:36 06/19/24 13:04 Height 5 ft 8 in 5 ft 8 in Weight: 205 lb BMI 31.1 BP 120/90 H Blood Pressure Location Lt brachial Position Sitting Respiration 16 Pulse 86 Pulse Source Monitor Temp 97.4 F L Temp Source Temporal Pulse Oximetry (%) 97 Oxygen Delivery Method room air Intake Visit Reasons: YEARLY Chief Complaint: YEARLY Is patient in pain?: No Allergies latex Allergy (Intermediate, Verified 06/19/24 13:02) rash Penicillins Allergy (Verified 06/19/24 13:02) Swelling Bees Allergy (Uncoded 06/19/24 13:02) Shortness of breath Medications ???Medication ???Instructions ???Recorded ???Confirmed ???Type meclizine 25 mg tablet 25 mg PO BID PRN dizziness #30 tab s 06/09/22 06/19/24 Rx cholecalciferol (vitamin D3) 125 125 mcg PO DAILY 09/02/22 06/19/24 History mcg (5,000 unit) capsule vitamin B complex (B 1 tab PO DAILY 09/02/22 06/19/24 H istory Complex-Vitamin B12 tablet) magnesium 250 mg tablet 250 mg PO DAILY 12/07/22 06/19/24 History PFSH Medical History Mobitz type 2 second degree atrioventricular block Palpitations Ganglion cyst of both wrists Abnormal Pap smear of cervix Carpal tunnel syndrome BPPV (benign paroxysmal positional vertigo) Fatigue Carotid bruit Dizziness Chest pain Cervical radiculopathy Arthritis of left wrist Alcohol use Non-smoker CPAP (continuous positive airway pressure) dependence Restless legs Migraine headache Anxiety Sleep apnea in adult Recurrent cold sores Sleep disturbance, unspecified Encounter for preventative adult health care examination Menorrhagia Anxiety about health Chronic constipation Kidney stones Chronic headaches Surgical History History of endometrial ablation History of colonoscopy History of kidney surgery Family History Mother Breast cancer Uncle Colon cancer Father Cancer Social History Smoking Status: Never smoker second hand exposure: No alcohol intake: current alcohol intake frequency: a few times a month substance use type: does not use caffeine: Yes Type: coffee Number of servings: 1 what type of physical activity do you participate in: none frequency: does not exercise HPI HPI Chief Complaint: YEARLY Details: DIMPLE SOTO, is a 54 F who presents to the office today for an annual physical exam. She had no insurance last year so she did not have any blood work done or a mammogram done. Since she was last seen she has not had a lot of health problems but she is very concerned the fact that she weighs over 200 pounds. ROS Const Constitutional: Positive for fatigue and weight change (REPORTS WEIGHT GAIN; UNABLE TO LOSE); No body ache, chills, excessive sweating, fever(s), frequent falls, headache(s), snoring, weakness, sleep problems or change in appetite Eyes Eyes: No blurry vision, change in vision or Light sensitivity ENT ENT: No abnormal hearing, ear or mastoid pain, tinnitus, nasal congestion, nasal discharge, headache(s), neck pain or sore throat Resp Respiratory: No cough, shortness of breath, snoring or wheezing Cardio Cardiology: No chest pain at rest, chest pain with exertion, excessive sweating, shortness of breath, dyspnea on exertion, lightheadedness, orthopnea or palpitations Gastro GI: No abdominal pain, change in bowel habits, constipation, cramping, diarrhea or nausea/dyspepsia Genitourinary-Female : No burning urination, painful urination, urinary incontinence or urinary frequency Musc Musculoskeletal: No abnormal gait, joint pain, back pain, limited range of motion, muscle weakness, neck pain or numbness Skin Skin: No dry skin, redness, lesions, itchy eyes, rash or wounds Neuro Neurology: No abnormal gait, abnormal hearing, weakness, frequent falls, headache(s), memory loss or numbness Psych Psychiatric: No anxiety, No change in appetite, No depression, No memory loss, No panic attacks and No Thoughts of harming yourself/Others Endo Endocrine: Positive for fatigue and weight change (REPORTS WEIGHT GAIN; UNABLE TO LOSE); No cold intolerance, excessive sweating, flushing, heat intolerance, increased thirst/drinking or increased hunger Aller/Imm Allergy/Immunologic: No itchy eyes, seasonal allergy symptoms, hives or wheezing Exam Const General: cooperative, healt (more content not included)... Normal [facility] LDL calc ser/plasOrdered By: Guilherme Martínez on 06-19-2024 LDL Cholesterol, Calculated 168 mg/dL [facility] Comment on above: Fafpnugbor=002-034 m g/dL & Higher Njzd=479 mg/dL or greater Laboratory - Chemistry and C hemistry - challengeOrdered By: Guilherme Martínez on 06-19-2024 AST [Catalytic activity/Vol] 17 U/L <32 [facility] Lipid Profileon 06-19-2024 CHOL:HDL 4.80 Normal [facility] Comment on above: Performed By: #### L 500.4050, L100.0100, L500.4100, L501.9520 #### [facility] [address] [place], [address] Cholesterol [Mass/Vol] 254 mg/dL High <=200 [facility] Comment on above: Result Comment: Chol esterol level, Desirable <200 mg/dL Borderline high cholesterol 200-239 mg/dL High cholesterol >=240 mg/dL Recommendations of the NCEP Adult Treatment Panel for the following risk-cutoff thresholds for the [place] population. Performed By: #### L 500.4050, L100.0100, L500.4100, L501.9520 #### [facility] [address] [place], [address] Cholesterol in HDL [Mass/Vol] 53 mg/dL Normal [facility] Comment on above: Result Comment: Karen onal Cholesterol Education Program (NCEP) guidelines: <40 mg/dL: Low HDL-cholesterol (major risk factor for CHD) >= 60 mg/dL: High HDL-cholesterol (negative risk factor for CHD) HDL-cholesterol is affected by a number of factors, e.g. smoking, exercise, hormones, sex and age. Performed By: #### L 500.4050, L100.0100, L500.4100, L501.9520 #### [facility] [address] [place], [address] Cholesterol in LDL [Mass/Vol] 168 mg/dL Normal [facility] Comment on above: Result Comment: Bord pbmmzs=944-505 mg/dL Higher Updi=033 mg/dL or greater Performed By: #### L 500.4050, L100.0100, L500.4100, L501.9520 #### [facility] [address] [place], [address] Cholesterol in VLDL [Mass/Vol] 33 mg/dL Normal 5-40 [facility] Comment on above: Performed By: #### L 500.4050, L100.0100, L500.4100, L501.9520 #### [facility] [address] [place] [place], [address] Triglyceride [Mass/Vol] 167 mg/dL Normal [facility] Comment on above: Result Comment: The drugs N-Acetylcysteine and Metamizole may falsely depress this assay. Normal range: <150 mg/dL Borderline High: 150-199 mg/dL High: 200-499 mg/dL Very High: >500 mg/dL Performed By: #### L 500.4050, L100.0100, L500.4100, L501.9520 #### [facility] [address] [place], [address] Lymphocytes Auto (Unsp spec) [#/Vol]Ordered By: Guilherme Martínez on 06-19-2024 Lymphocytes (Bld) [#/Vol] 2.07 10*3/uL 0.83-4.51 [facility] Lymphocytes/100 WBC Auto (Un sp spec)Ordered By: Guilherme Martínez on 06-19-2024 Lymphocytes/100 WBC (Bld) 31.7 % 19-41 [facility] MCV (mean corpuscular volume ) determinationOrdered By: Guilherme Martínez on 06-19-2024 MCV (RBC) [Entitic vol] 85.0 fL 81-99 [facility] Mean corpuscular hemoglobin (MCH) determinationOrdered By: Guilherme Martínez on 06-19-2024 MCH (RBC) [Entitic mass] 28.1 pg 27.0-32.0 [facility] Mean corpuscular hemoglobin concentration (MCHC) determinationOrdered By: Guilherme Martínez on 06-19-2024 MCHC (RBC) [Mass/Vol] 33.1 g/dL 32-36 [facility] Mean platelet volume determi nationOrdered By: Guilherme Martínez on 06-19-2024 Platelet mean volume (Bld) [Entitic vol] 9.9 fL 6.2-12.0 [facility] Monocyte percentageOrdered B y: Guilherme Martínez on 06-19-2024 Monocytes/100 WBC (Bld) 8.4 % 0-10 [facility] Neutrophil percentageOrdered By: Guilherme Martínez on 06-19-2024 Neutrophils/100 WBC (Bld) 57.9 % 47-70 [facility] Nucleated red blood cell per centageOrdered By: Guilherme Martínez on 06-19-2024 Nucleated RBC/100 WBC (Bld) [Ratio] 0 % 0-5 [facility] Platelet countOrdered By: Do hansel Martínez on 06-19-2024 Platelets (Bld) [#/Vol] 289 10*3/uL 150-450 [facility] Potassium (Unsp spec) [Mass/ Vol]Ordered By: Guilherme Martínez on 06-19-2024 Potassium [Moles/Vol] 4.2 mmol/L 3.3-5.1 [facility] RBC Auto (Bld) [#/Vol]Ordere d By: Guilherme Martínez on 06-19-2024 RBC (Bld) [#/Vol] 4.80 10*6/uL 4.2-5.4 [facility] Screening total cholesterol/ high density lipoprotein (HDL) cholesterol ratioOrdered By: Guilherme Martínez on 06-19-2024 Cholesterol.total/Choles terol in HDL [Mass ratio] 4.80 {ratio} [facility] Serum creatinine measurement (mass/volume)Ordered By: Guilherme Martínez on 06-19-2024 Creatinine [Mass/Vol] 0.63 mg/dL Low 0.70-1.20 [facility] Serum globulin measurementOr dered By: Guilherme Martínez 06-19-2024 Globulin (S) [Mass/Vol] 3.4 g/dL 2.2-4.2 [facility] Serum glucose measurement (m ass/volume)Ordered By: Guilherme Martínez on 06-19-2024 Glucose [Mass/Vol] 91 mg/dL 70-99 [facility] Serum or plasma alanine tong otransferase (ALT) measurementOrdered By: Guilherme Martínez 06-19-2024 ALT [Catalytic activity/Vol] 7 U/L <35 [facility] Serum or plasma albumin bhanu urement (mass/volume)Ordered By: Guilherme Martínez 06-19-2024 Albumin [Mass/Vol] 4.3 g/dL 3.5-5.0 [facility] Serum or plasma albumin/glob ulin mass ratioOrdered By: Guilherme Martínez on 06-19-2024 Albumin/Globulin [Mass ratio] 1.2 {ratio} 0.9-2.4 [facility] Serum or plasma alkaline bárbara sphatase measurementOrdered By: Guilherme Martínez on 06-19-2024 ALP [Catalytic activity/Vol] 108 U/L High 35-104 [facility] Serum or plasma calcium bhanu urement (mass/volume)Ordered By: Guilherme Martínez on 06-19-2024 Calcium [Mass/Vol] 9.5 mg/dL 7.6-11.0 [facility] Serum or plasma cholesterol in HDL measurement (mass/volume)Ordered By: Guilherme Martínez on 06-19-2024 Cholesterol in HDL [Mass/Vol] 53 mg/dL >40 [facility] Comment on above: National Cholesterol Education Program (NCEP) guidelines:<40 mg/dL: Low HDL-cholesterol (major risk factor for CHD)>= 60 mg/dL: High HDL-cholesterol (negative risk factor for CHD)HDL-cholesterol is affected by a number of factors, e.g. smoking, exercise, hormones, sex and age. Serum or plasma cholesterol measurement (mass/volume)Ordered By: Guilherme Martínez 06-19-2024 Cholesterol [Mass/Vol] 254 mg/dL High <201 [facility] Comment on above: Cholesterol level, D esirable <200 mg/dLBorderline high cholesterol 200-239 mg/dLHigh cholesterol >=240 mg/dLRecommendations of the NCEP Adult Treatment Panel for the following risk-cutoff thresholds for the [place] population. Serum or plasma urea nitroge n measurement (mass/volume)Ordered By: Guilherme Martínez on 06-19-2024 Urea nitrogen [Mass/Vol] 21 mg/dL High 4-19 [facility] Sodium levelOrdered By: Delvin Martínez 06-19-2024 Sodium [Moles/Vol] 140 mmol/L 133-145 [facility] TSH DL <= 0.005 mIU/L QnOrde red By: Guilherme Martínez on 06-19-2024 Thyroid Stimulating Hormone (TSH) 3.330 uIU/mL 0.300-4.200 [facility] Thyroid Stim Hormone (TSH)on 06-19-2024 TSH 3.330 uIU/mL Normal 0.300-4.200 [facility] Comment on above: Performed By: #### L 500.4050, L100.0100, L500.4100, L501.9520 #### [facility] [address] [place], [address] Total proteinOrdered By: Erlin Martínez on 06-19-2024 Protein [Mass/Vol] 7.7 g/dL 5.9-8.4 [facility] Triglycerides measurementOrd ered By: Guilherme Martínez on 06-19-2024 Triglyceride [Mass/Vol] 167 mg/dL <199 [facility] Comment on above: The drugs N-Acetylcy steine and Metamizole may falsely depress this assay. Normal range: <150 mg/dLBorderline High: 150-199 mg/dLHigh: 200-499 mg/dLVery High: >500 mg/dL White blood cell (WBC) count Ordered By: Guilherme Martínez on 06-19-2024 WBC (Bld) [#/Vol] 6.5 10*3/uL 4.4-11.0 [facility] CNOVon 03-15-2023 CNOV Office Visit (AGCPATRICKPOB) OURS,DIMPLE Scott ([id number]) 1970 F Date Time Provider Department 03/15/23 8:20 AM ALEXANDRA PATEL During your visit today, we recorded the following information about you: Pulse Respiration Blood pressure Weight 85/minute 18/minute 108/76 89.4 kg Height 1.727 m Alexandra Patel MD 03/25/2023 4:27 PM Addendum PRIMARY CARE PHYSICIAN: Guilherme Martínez DO [address] [place] [address] REFERRING PHYSICIAN: Tera Kumar [address] [facility] [id number] Patient Care Team: Guilherme Martínez DO as PCP - General (Family Medicine) Tera Kumar MD as Specialty Spout Positioner (Cardiology) CHIEF COMPLAINT: Evaluation of arrhythmia HISTORY OF PRESENT ILLNESS: Ms. Soto is a 52 year old female who presents today for evaluation of heart block. She was experiencing chest discomfort, evaluated by Dr. Kumar of [facility]. Cardiac monitoring revealed a brief period of 3:1 AV block that occurred at about midnight. Ms. Soto states she was almost certainly sleeping at [...] CPAP PAST SURGICAL HISTORY Procedure Laterality Date HYSTEROSCOPY,W/ENDOM ETRIAL ABLATION 01/18/2018 PAST SURGICAL HISTORY OF kidney [...] Sinus rhythm 72 bpm; normal conduction intervals (NY 162 ms, QRS 82 ms); QTc 455 ms I have personally reviewed the Electrocardiogram. Cardiac monitoring for 48 hours 09/2022 revealed sinus rhythm, reported symptoms occurred during sinus rhythm or sinus tachycardia. One episode of 3:1 AV block at 12:39 AM. Rare PVCs and PACs. No rhythm strips provided, just summary report Treadmill stress test 06/2022: Pk protocol, 10 minutes; max HR 151 bpm (89% MPHR), 13.4 METs (excellent functi (more content not included)... Normal [facility] Absolute lymphocyte countOrd ered By: Savage Susan on 06-09-2022 Lymphocytes Auto (Unsp spec) [#/Vol] 1.62 10*3/uL 0.83-4.51 [facility] Basophil percentageOrdered B y: Savage Davis on 06-09-2022 Basophils/100 WBC (Bld) 0.2 % 0-1 [facility] Bilirubin [Mass/Vol] 0.30 mg/dL 0.20-1.00 [facility] Comment on above: For patients on eltr ombopag therapy, use of Dimension Firestone TBIL is not recommended. Chloride [Moles/Vol] 106 mmol/L 98-107 [facility] Eosinophils/100 WBC (Bld) 1.2 % 0-5 [facility] Glucose [Mass/Vol] 79 mg/dL 74-106 [facility] Neutrophils (Bld) [#/Vol] 3.1 10*3/uL 2.0-7.7 [facility] Neutrophils/100 WBC (Bld) 59.4 % 47-70 [facility] Potassium [Moles/Vol] 4.1 mmol/L 3.5-5.1 [facility] Protein [Mass/Vol] 7.5 g/dL 6.4-8.2 [facility] Sodium [Moles/Vol] 139 mmol/L 136-145 [facility] WBC (Bld) [#/Vol] 5.2 10*3/uL 4.4-11.0 [facility] Blood erythrocytes count (nu mber/volume)Ordered By: Savage Davis on 06-09-2022 RBC (Bld) [#/Vol] 5.08 10*6/uL 4.2-5.4 [facility] Blood hemoglobin measurement (mass/volume)Ordered By: Savage Davis on 06-09-2022 Hemoglobin (Bld) [Mass/Vol] 14.1 g/dL 12.0-15.0 [facility] Blood lymphocytes/100 leukoc ytesOrdered By: Savage Davis on 06-09-2022 Lymphocytes/100 WBC (Bld) 31.3 % 19-41 [facility] Blood monocytes/100 leukocyt esOrdered By: Savage Davis on 06-09-2022 Monocytes/100 WBC (Bld) 7.5 % 0-10 [facility] Blood platelet mean volumeOr dered By: Savage Davis on 06-09-2022 Platelet mean volume (Bld) [Entitic vol] 10.1 fL 6.2-12.0 [facility] Determination of erythrocyte mean corpuscular volume (MCV)Ordered By: Savage Davis on 06-09-2022 MCV (RBC) [Entitic vol] 88.0 fL 81-99 [facility] Hematocrit Auto (Bld) [Volum e fraction]Ordered By: Savage Davis on 06-09-2022 Hematocrit (Bld) [Volume fraction] 44.7 % 37-47 [facility] Laboratory - Chemistry and C hemistry - challengeOrdered By: Savage Davis on 06-09-2022 ALP [Catalytic activity/Vol] 92 U/L 45-117 [facility] ALT [Catalytic activity/Vol] 11 U/L 13-56 [facility] CO2 [Moles/Vol] 29.0 mmol/L 21.0-32.0 [facility] Cobalamin (Vitamin B12) [Mass/Vol] 358 pg/mL 211-911 [facility] Globulin (S) [Mass/Vol] 3.7 g/dL 2.2-4.2 [facility] Magnesium [Mass/Vol] 2.4 mg/dL 1.6-2.6 [facility] Urea nitrogen/Creatinine [Mass ratio] 23.7 mg/mg 10-20 [facility] Laboratory - Hematology and Cell countsOrdered By: Savage Davis on 06-09-2022 Erythrocyte distribution width (RBC) [Entitic vol] 43.5 fL 35.1-43.9 [facility] Erythrocyte distribution width (RBC) [Ratio] 13.4 % 11.6-14.6 [facility] Immature granulocytes/100 WBC (Bld) 0.400 % 0.0-0.9 [facility] Comment on above: IG% - Immature Granu locytes (promyelocytes, myelocytes and metamyelocytes) > 1% indicates that a LEFT SHIFT is Present. MCH (RBC) [Entitic mass] 27.8 pg 27.0-32.0 [facility] Nucleated RBC/100 WBC (Bld) [Ratio] 0 % 0-5 [facility] MCHC Auto (RBC) [Mass/Vol]Or dered By: Savage Davis on 06-09-2022 MCHC (RBC) [Mass/Vol] 31.5 g/dL 32-36 [facility] No Panel InformationOrdered By: Savage Davis on 06-09-2022 Estimated GFR (MDRD) Amer 127 mL/min >60 [facility] Comment on above: GFR Calc Estimated GFR (MDRD) Non-Af Amer 105 mL/min >60 [facility] Comment on above: Non- GFR Calc Thyroid Stimulating Hormone (TSH) 2.13 uIU/mL 0.358-3.74 [facility] Troponin I High Sensitivity 3 pg/mL 3.0-54.0 [facility] Comment on above: Please Note: [place] t Units and Gender Specific Reference Ranges. For more information see Policy Stat Procedure Firestone High Sensitivity Troponin (TNIH) and attachments. Vitamin D 25-Hydroxy 26.4 ng/mL [facility] Comment on above: Vitamin D 25(OH) Sta tus Range Deficiency <20 ng/mL (50nmol/L) Insufficiency 20 - 30 ng/mL (50 - 75 nmol/L) Sufficiency 30 - 100 ng/mL (75 - 250 nmol/L) Toxicity >100 ng/mL (>250 nmol/L) Platelets bldOrdered By: Adeline Davis on 06-09-2022 Platelets (Bld) [#/Vol] 301 10*3/uL 150-450 [facility] Serum or plasma albumin bhanu urement (mass/volume)Ordered By: Savage Davis on 06-09-2022 Albumin [Mass/Vol] 3.8 g/dL 3.2-5.0 [facility] Serum or plasma albumin/glob ulin mass ratioOrdered By: Savage Davis on 06-09-2022 Albumin/Globulin [Mass ratio] 1.0 {ratio} 0.9-2.4 [facility] Serum or plasma calcium bhanu urement (mass/volume)Ordered By: Savage Davis on 06-09-2022 Calcium [Mass/Vol] 9.4 mg/dL 8.5-10.1 [facility] Serum or plasma creatinine m easurement (mass/volume)Ordered By: Savage Davis on 06-09-2022 Creatinine [Mass/Vol] 0.63 mg/dL 0.55-1.02 [facility] Comment on above: The validity of the calculated GFR & GFRAA in patients over 70 years has not been determined. Clinical correlation is essential. Serum or plasma urea nitroge n measurement (mass/volume)Ordered By: Savage Davis on 06-09-2022 Urea nitrogen [Mass/Vol] 15 mg/dL 7-18 [facility] Thin prep Papanicolaou smear with manual screeningOrdered By: Savage Davis on 06-09-2022 Thin prep Papanicolaou smear with manual screening 17 U/L 15-37 [facility] Thin prep Papanicolaou smear with manual screening 4 5-15 [facility] Absolute lymphocyte countOrd ered By: Dr. Burdick on 06-07-2022 Lymphocytes Auto (Unsp spec) [#/Vol] 1.87 10*3/uL 0.83-4.51 [facility] Basophil percentageOrdered B y: Dr. Burdick on 06-07-2022 Basophils/100 WBC (Bld) 0.5 % 0-1 [facility] Chloride [Moles/Vol] 107 mmol/L 98-107 [facility] Eosinophils/100 WBC (Bld) 1.8 % 0-5 [facility] Glucose [Mass/Vol] 94 mg/dL 74-106 [facility] Neutrophils (Bld) [#/Vol] 3.6 10*3/uL 2.0-7.7 [facility] Neutrophils/100 WBC (Bld) 58.7 % 47-70 [facility] Potassium [Moles/Vol] 3.8 mmol/L 3.5-5.1 [facility] Sodium [Moles/Vol] 139 mmol/L 136-145 [facility] WBC (Bld) [#/Vol] 6.1 10*3/uL 4.4-11.0 [facility] Blood erythrocytes count (nu mber/volume)Ordered By: Dr. Burdick on 06-07-2022 RBC (Bld) [#/Vol] 4.83 10*6/uL 4.2-5.4 [facility] Blood hemoglobin measurement (mass/volume)Ordered By: Dr. Burdick on 06-07-2022 Hemoglobin (Bld) [Mass/Vol] 13.5 g/dL 12.0-15.0 [facility] Blood lymphocytes/100 leukoc ytesOrdered By: Dr. Burdick on 06-07-2022 Lymphocytes/100 WBC (Bld) 30.9 % 19-41 [facility] Blood monocytes/100 leukocyt esOrdered By: Dr. Burdick on 06-07-2022 Monocytes/100 WBC (Bld) 7.8 % 0-10 [facility] Blood platelet mean volumeOr dered By: Dr. Burdick on 06-07-2022 Platelet mean volume (Bld) [Entitic vol] 9.6 fL 6.2-12.0 [facility] Determination of erythrocyte mean corpuscular volume (MCV)Ordered By: Dr. Burdick on 06-07-2022 MCV (RBC) [Entitic vol] 85.7 fL 81-99 [facility] Hematocrit Auto (Bld) [Volum e fraction]Ordered By: Dr. Burdick on 06-07-2022 Hematocrit (Bld) [Volume fraction] 41.4 % 37-47 [facility] Laboratory - Chemistry and C hemistry - challengeOrdered By: Dr. Burdick on 06-07-2022 CO2 [Moles/Vol] 27.0 mmol/L 21.0-32.0 [facility] Urea nitrogen/Creatinine [Mass ratio] 23.1 mg/mg 10-20 [facility] Laboratory - Hematology and Cell countsOrdered By: Dr. Burdick on 06-07-2022 Erythrocyte distribution width (RBC) [Entitic vol] 42.3 fL 35.1-43.9 [facility] Erythrocyte distribution width (RBC) [Ratio] 13.5 % 11.6-14.6 [facility] Immature granulocytes/100 WBC (Bld) 0.300 % 0.0-0.9 [facility] Comment on above: IG% - Immature Granu locytes (promyelocytes, myelocytes and metamyelocytes) > 1% indicates that a LEFT SHIFT is Present. MCH (RBC) [Entitic mass] 28.0 pg 27.0-32.0 [facility] Nucleated RBC/100 WBC (Bld) [Ratio] 0 % 0-5 [facility] MCHC Auto (RBC) [Mass/Vol]Or dered By: Dr. Burdick on 06-07-2022 MCHC (RBC) [Mass/Vol] 32.6 g/dL 32-36 [facility] No Panel InformationOrdered By: Dr. Burdick on 06-07-2022 Estimated Creatinine Clearance Calc 75.58 ml/min [facility] Estimated GFR (MDRD) Amer 83 mL/min >60 [facility] Comment on above: GFR Calc Estimated GFR (MDRD) Non-Af Amer 69 mL/min >60 [facility] Comment on above: Non- GFR Calc Troponin I High Sensitivity < 3 pg/mL 3.0-54.0 [facility] Comment on above: Please Note: [place] t Units and Gender Specific Reference Ranges. For more information see Policy Stat Procedure [employer] High Sensitivity Troponin (TNIH) and attachments. Platelets bldOrdered By: Dr. Burdick on 06-07-2022 Platelets (Bld) [#/Vol] 291 10*3/uL 150-450 [facility] Serum or plasma calcium bhanu urement (mass/volume)Ordered By: Dr. Burdick on 06-07-2022 Calcium [Mass/Vol] 9.3 mg/dL 8.5-10.1 [facility] Serum or plasma creatinine m easurement (mass/volume)Ordered By: Dr. Burdick on 06-07-2022 Creatinine [Mass/Vol] 0.91 mg/dL 0.55-1.02 [facility] Comment on above: The validity of the calculated GFR & GFRAA in patients over 70 years has not been determined. Clinical correlation is essential. Serum or plasma urea nitroge n measurement (mass/volume)Ordered By: Dr. Burdick on 06-07-2022 Urea nitrogen [Mass/Vol] 21 mg/dL 7-18 [facility] Thin prep Papanicolaou smear with manual screeningOrdered By: Dr. Burdick on 06-07-2022 Thin prep Papanicolaou smear with manual screening 5 5-15 [facility] Absolute lymphocyte counton 01-04-2022 Lymphocytes Auto (Unsp spec) [#/Vol] 1.90 10*3/uL 0.83-4.51 [facility] Work Phone: Basophil percentageon 2021 Basophils/100 WBC (Bld) 0.5 % 0-1 [facility] Work Phone: Bilirubin [Mass/Vol] 0.20 mg/dL 0.20-1.00 [facility] Work Phone: Comment on above: For patients on eltr ombopag therapy, use of Dimension [place] TBIL is not recommended. Chloride [Moles/Vol] 106 mmol/L 98-107 [facility] Work Phone: Cholesterol [Mass/Vol] 216 mg/dL <200 [facility] Work Phone: Comment on above: <200 mg/dL Desirable 200-240 mg/dL Borderline >240 mg/dL High Risk Eosinophils/100 WBC (Bld) 1.1 % 0-5 [facility] Work Phone: Glucose [Mass/Vol] 92 mg/dL 74-106 [facility] Work Phone: [phone] Neutrophils (Bld) [#/Vol] 4.0 10*3/uL 2.0-7.7 [facility] Work Phone: [phone] Neutrophils/100 WBC (Bld) 61.9 % 47-70 [facility] Work Phone: [phone] Potassium [Moles/Vol] 4.2 mmol/L 3.5-5.1 [facility] Work Phone: [phone] Protein [Mass/Vol] 7.4 g/dL 6.4-8.2 [facility] Work Phone: Sodium [Moles/Vol] 139 mmol/L 136-145 [facility] Work Phone: [phone] Triglyceride [Mass/Vol] 160 mg/dL <199 [facility] Work Phone: Comment on above: The drugs N-Acetylcy steine and Metamizole may falsely depress this assay.Serum Triglycerides Reference Interval Normal <150 mg/dL Borderline high 150 - 199 mg/dL High 200 - 499 mg/dL Very High > or = 500 mg/dL WBC (Bld) [#/Vol] 6.5 10*3/uL 4.4-11.0 [facility] Work Phone: [phone] Blood erythrocytes count (nu mber/volume)on 01-04-2022 RBC (Bld) [#/Vol] 4.81 10*6/uL 4.2-5.[address] [facility] [facility] Work Phone: Blood hemoglobin measurement (mass/volume)on 01-04-2022 Hemoglobin (Bld) [Mass/Vol] 13.5 g/dL 12.0-15.0 [facility] Work Phone: Blood lymphocytes/100 leukoc yteson 01-04-2022 Lymphocytes/100 WBC (Bld) 29.2 % 19-41 [facility] Work Phone: Blood monocytes/100 leukocyt eson 01-04-2022 Monocytes/100 WBC (Bld) 7.1 % 0-10 [facility] Work Phone: Blood platelet mean volumeon 01-04-2022 Platelet mean volume (Bld) [Entitic vol] 10.3 fL 6.2-12.0 [facility] Work Phone: Determination of erythrocyte mean corpuscular volume (MCV)on 01-04-2022 MCV (RBC) [Entitic vol] 85.2 fL 81-99 [facility] Work Phone: Hematocrit Auto (Bld) [Volum e fraction]on 01-04-2022 Hematocrit (Bld) [Volume fraction] 41.0 % 37-47 [facility] Work Phone: Laboratory - Chemistry and C hemistry - challengeon 01-04-2022 ALP [Catalytic activity/Vol] 110 U/L 45-117 [facility] Work Phone: ALT [Catalytic activity/Vol] 12 U/L 13-56 [facility] Work Phone: CO2 [Moles/Vol] 28.0 mmol/L 21.0-32.0 [facility] Work Phone: Globulin (S) [Mass/Vol] 3.9 g/dL 2.2-4.2 [facility] Work Phone: Urea nitrogen/Creatinine [Mass ratio] 19.1 mg/mg 10-20 [facility] Work Phone: Laboratory - Hematology and Cell countson 01-04-2022 Erythrocyte distribution width (RBC) [Entitic vol] 42.7 fL 35.1-43.9 [facility] Work Phone: Erythrocyte distribution width (RBC) [Ratio] 13.7 % 11.6-14.6 [facility] Work Phone: Immature granulocytes/100 WBC (Bld) 0.200 % 0.0-0.9 [facility] Work Phone: Comment on above: IG% - Immature Granu locytes (promyelocytes, myelocytes and metamyelocytes) > 1% indicates that a LEFT SHIFT is Present. MCH (RBC) [Entitic mass] 28.1 pg 27.0-32.0 [facility] Work Phone: Nucleated RBC/100 WBC (Bld) [Ratio] 0 % 0-5 [facility] Work Phone: MCHC Auto (RBC) [Mass/Vol]on 01-04-2022 MCHC (RBC) [Mass/Vol] 32.9 g/dL 32-36 [facility] Work Phone: No Panel Informationon 01-04 Estimated GFR (MDRD) Amer 92 mL/min >60 [facility] Work Phone: Comment on above: GFR Calc Estimated GFR (MDRD) Non-Af Amer 76 mL/min >60 [facility] Work Phone: Comment on above: Non- GFR Calc Platelets bldon 01-04-2022 Platelets (Bld) [#/Vol] 290 10*3/uL 150-450 [facility] Work Phone: Serum or plasma albumin bhanu urement (mass/volume)on 01-04-2022 Albumin [Mass/Vol] 3.5 g/dL 3.2-5.0 [facility] Work Phone: Serum or plasma albumin/glob ulin mass ratioon 01-04-2022 Albumin/Globulin [Mass ratio] 0.9 {ratio} 0.9-2.4 [facility] Work Phone: Serum or plasma calcium bhanu urement (mass/volume)on 01-04-2022 Calcium [Mass/Vol] 9.2 mg/dL 8.5-10.1 [facility] Work Phone: Serum or plasma cholesterol in HDL measurement (mass/volume)on 01-04-2022 Cholesterol in HDL [Mass/Vol] 56 mg/dL >40 [facility] Work Phone: Comment on above: The drugs N-Acetylcy steine and Metamizole may falsely depress this assay. Reference Range HDL <40 mg/dL Low HDL Cholesterol HDL >or= 60 mg/dL High HDL Cholesterol Serum or plasma cholesterol in VLDL measurement (mass/volume)on 01-04-2022 Cholesterol in VLDL [Mass/Vol] 32 mg/dL 5-40 [facility] Work Phone: Serum or plasma creatinine m easurement (mass/volume)on 01-04-2022 Creatinine [Mass/Vol] 0.84 mg/dL 0.55-1.02 [facility] Work Phone: Comment on above: The validity of the calculated GFR & GFRAA in patients over 70 years has not been determined. Clinical correlation is essential. Serum or plasma low density lipoprotein (LDL) cholesterol measurement (mass/volume)on 01-04-2022 Cholesterol in LDL [Mass/Vol] 128 mg/dL 0-130 [facility] Work Phone: Serum or plasma urea nitroge n measurement (mass/volume)on 01-04-2022 Urea nitrogen [Mass/Vol] 16 mg/dL 7-18 [facility] Work Phone: Thin prep Papanicolaou smear with manual screeningon 01-04-2022 Thin prep Papanicolaou smear with manual screening 15 U/L 15-37 [facility] Work Phone: Thin prep Papanicolaou smear with manual screening 5 5-15 [facility] Work Phone: UA DIP, URINE (POC)on 2021 BILIRUBIN UA (POCT) Negative Negative [facility] CLARITY UA (POCT) Clear [facility] COLOR UA (POCT) Yellow [facility] GLUCOSE UA (POCT) Negative Negative mg/dL [facility] HEMOGLOBIN/BLOOD UA (POCT) Trace-intact Abnormal Negative [facility] KETONE UA (POCT) Negative Negative mg/dL [facility] LEUKOCYTES UA (POCT) Small [facility]) Positive Abnormal Negative [facility] PH UA (POCT) 7.0 4.5 - 8.0 [facility] Protein Ql (U) Negative Negative mg/dL [facility] SPECIFIC GRAVITY UA (POCT) 1.025 1.005 - 1.030 [facility] UROBILINOGEN UA (POCT) 0.2 E.U./dL Gail l E.U./dL [facility] Vital Signs Date Time Vital Sign Value Performing Clinician Facility 12-13-2024 10:40-0400 Body height 172.[address] Guilherme Martínez DO Work Phone: [facility] 12-13-2024 10:40-0400 Body mass index (BMI) [Ratio] 30.6 kg/m2 Dr. Guilherme Martínez DO Work Phone: [facility] 12-13-2024 10:40-0400 Body weight 91.[address] Guilherme Martínez DO Work Phone: [facility] 06-19-2024 13:04-0400 Body height 172.[address] Guilherme Martínez DO Work Phone: [facility] 06-19-2024 13:04-0400 Body mass index (BMI) [Ratio] 31.1 kg/m2 Dr. Guilherme Martínez DO Work Phone: [facility] 06-19-2024 13:04-0400 Body temperature 97.4 [degF] Dr. Guilherme Martínez DO Work Phone: [facility] 06-19-2024 13:04-0400 Body weight 92.[address] Guilherme Martínez DO Work Phone: [facility] 06-19-2024 13:04-0400 Diastolic blood pressure 90 mm[Hg] Dr. Guilherme Martínez DO Work Phone: [facility] 06-19-2024 13:04-0400 Heart rate 86 /min Dr. Guilherme Martínez DO Work Phone: [facility] 06-19-2024 13:04-0400 Respiratory rate 16 /min Dr. Guilherme Martínez DO Work Phone: [facility] 06-19-2024 13:04-0400 SaO2% (BldA) [Mass fraction] 97 % Dr. Guilherme Martínez DO Work Phone: [facility] 06-19-2024 13:04-0400 Systolic blood pressure 120 mm[Hg] Dr. Guilherme Martínez DO Work Phone: [facility] 02-08-2023 14:36-0500 Body height 172.[address] Guilherme Martínez Work Phone: [facility] 02-08-2023 14:36-0500 Body mass index (BMI) [Ratio] 30.5 kg/m2 Dr. Guilherme Martínez Work Phone: [facility] 02-08-2023 14:36-0500 Body temperature 97.3 [degF] Dr. Guilherme Martínez Work Phone: [facility] 02-08-2023 14:36-0500 Body weight 91.[address] Guilherme Martínez Work Phone: [facility] 02-08-2023 14:36-0500 Diastolic blood pressure 60 mm[Hg] Dr. Guilherme Martínez Work Phone: [facility] 02-08-2023 14:36-0500 Heart rate 95 /min Dr. Guilherme Martínez Work Phone: [facility] 02-08-2023 14:36-0500 Respiratory rate 16 /min Dr. Guilherme Martínez Work Phone: [facility] 02-08-2023 14:36-0500 SaO2% (BldA) [Mass fraction] 98 % Dr. Guilherme Martínez Work Phone: [facility] 02-08-2023 14:36-0500 Systolic blood pressure 116 mm[Hg] Dr. Guilherme Martínez Work Phone: [facility] 10-27-2022 13:15-0400 Diastolic blood pressure 59 mm[Hg] Dr. Guilherme Martínez Work Phone: [facility] 10-27-2022 13:15-0400 Heart rate 71 /min Dr. Guilherme Martínez Work Phone: [facility] 10-27-2022 13:15-0400 Respiratory rate 18 /min Dr. Guilherme Martínez Work Phone: [facility] 10-27-2022 13:15-0400 SaO2% (BldA) [Mass fraction] 98 % Dr. Guilherme Martínez Work Phone: [facility] 10-27-2022 13:15-0400 Systolic blood pressure 92 mm[Hg] Dr. Guilherme Martínez Work Phone: [facility] 10-27-2022 12:57-0400 Body height 172.[address] Guilherme Martínez Work Phone: [facility] 10-27-2022 12:57-0400 Body mass index (BMI) [Ratio] 28.7 kg/m2 Dr. Guilherme Martínez Work Phone: [facility] 10-27-2022 12:57-0400 Body temperature 97.4 [degF] Dr. Guilherme Martínez Work Phone: [facility] 10-27-2022 12:57-0400 Body weight 85.[address] Guilherme Martínez Work Phone: [facility] 09-14-2022 08:38-0400 Body height 175.[address] Guilherme Martínez Work Phone: [facility] 09-14-2022 08:38-0400 Body mass index (BMI) [Ratio] 28.3 kg/m2 Dr. Guilherme Martínez Work Phone: [facility] 09-14-2022 08:38-0400 Body weight 87.[address] Guilherme Martínez Work Phone: [facility] 09-14-2022 08:38-0400 Diastolic blood pressure 73 mm[Hg] Dr. Guilherme Martínez Work Phone: [facility] 09-14-2022 08:38-0400 Heart rate 86 /min Dr. Guilhreme Martínez Work Phone: [facility] 09-14-2022 08:38-0400 Respiratory rate 16 /min Dr. Guilherme Martínez Work Phone: [facility] 09-14-2022 08:38-0400 Systolic blood pressure 106 mm[Hg] Dr. Guilherme Martínez Work Phone: [facility] 09-02-2022 11:10-0400 Body mass index (BMI) [Ratio] 28.5 kg/m2 Dr. Guilherme Martínez Work Phone: [facility] 09-02-2022 11:10-0400 Body weight 87.[address] Guilherme Martínez Work Phone: [facility] 06-09-2022 11:30-0400 Diastolic blood pressure 90 mm[Hg] Dr. Guilherme Martínez Work Phone: [facility] 06-09-2022 11:30-0400 Heart rate 83 /min Dr. Guilherme Martínez Work Phone: [facility] 06-09-2022 11:30-0400 Respiratory rate 16 /min Dr. Guilherme Martínez Work Phone: [facility] 06-09-2022 11:30-0400 Systolic blood pressure 104 mm[Hg] Dr. Guilherme Martínez Work Phone: [facility] 06-09-2022 10:43-0400 Body height 175.[address] Guilherme Martínez Work Phone: [facility] 06-09-2022 10:43-0400 Body mass index (BMI) [Ratio] 27.1 kg/m2 Dr. Guilherme Martínez Work Phone: [facility] 06-09-2022 10:43-0400 Body temperature 96.3 [degF] Dr. Guilherme Martínez Work Phone: [facility] 06-09-2022 10:43-0400 Body weight 83.[address] Guilherme Martínez Work Phone: [facility] 06-09-2022 10:43-0400 SaO2% (BldA) [Mass fraction] 98 % Dr. Guilherme Martínez Work Phone: [facility] 06-07-2022 17:33-0400 Body temperature 97.8 [degF] [facility] 06-07-2022 17:33-0400 Diastolic blood pressure 78 mm[Hg] [facility] 06-07-2022 17:33-0400 Heart rate 78 /min [facility] 06-07-2022 17:33-0400 Respiratory rate 16 /min [facility] 06-07-2022 17:33-0400 SaO2% (BldA) [Mass fraction] 99 % [facility] 06-07-2022 17:33-0400 Systolic blood pressure 134 mm[Hg] [facility] 06-07-2022 15:13-0400 Body height 175.26 cm [facility] 06-07-2022 15:13-0400 Body mass index (BMI) [Ratio] 27.1 kg/m2 [facility] 06-07-2022 15:13-0400 Body weight 83.32 kg [facility] 02-17-2022 09:00-0500 Body height 171.5 cm Mark Glass MD Work Phone: [facility] 02-17-2022 09:00-0500 Body weight 81.65 kg Mark Glass MD Work Phone: [facility] 02-17-2022 09:00-0500 Diastolic blood pressure 78 mm[Hg] Mark Glass MD Work Phone: [facility] 02-17-2022 09:00-0500 Systolic blood pressure 118 mm[Hg] Mark Glass MD Work Phone: [facility] 01-04-2022 15:10-0400 Body height 175.[address] Guilherme Martínez Work Phone: [facility] Work Phone: 01-04-2022 15:10-0400 Body mass index (BMI) [Ratio] 27.4 kg/m2 Dr. Guilherme Martínez Work Phone: [facility] Work Phone: 01-04-2022 15:10-0400 Body temperature 95.5 [degF] Dr. Guilherme Martínez Work Phone: [facility] Work Phone: 01-04-2022 15:10-0400 Body weight 84.[address] Guilherme Martínez Work Phone: [facility] Work Phone: 01-04-2022 15:10-0400 Diastolic blood pressure 68 mm[Hg] Dr. Guilherme Martínez Work Phone: [facility] Work Phone: 01-04-2022 15:10-0400 Heart rate 82 /min Dr. Guilherme Martínez Work Phone: [facility] Work Phone: 01-04-2022 15:10-0400 Respiratory rate 16 /min Dr. Guilherme Martínez Work Phone: [facility] Work Phone: 01-04-2022 15:10-0400 SaO2% (BldA) [Mass fraction] 98 % Dr. Guilherme Martínez Work Phone: [facility] Work Phone: 01-04-2022 15:10-0400 Systolic blood pressure 98 mm[Hg] Dr. Guilherme Martínez Work Phone: [facility] Work Phone: 10-16-2021 10:48-0400 Body temperature 97.11 [degF] Bridgett Sammie EQUIPMENT MAINTENANCE TECH.PLASMA CENTER TECHNICIAN Work Phone: [facility] 10-16-2021 10:48-0400 Body weight 88.45 kg Bridgett Sammie EQUIPMENT MAINTENANCE TECH.PLASMA CENTER TECHNICIAN Work Phone: [facility] 10-16-2021 10:48-0400 Diastolic blood pressure 80 mm[Hg] Bridgett Sammie EQUIPMENT MAINTENANCE TECH.PLASMA CENTER TECHNICIAN Work Phone: [facility] 10-16-2021 10:48-0400 Heart rate 94 /min Bridgett Sammie EQUIPMENT MAINTENANCE TECH.PLASMA CENTER TECHNICIAN Work Phone: [facility] 10-16-2021 10:48-0400 Respiratory rate 16 /min Bridgett Sammie EQUIPMENT MAINTENANCE TECH.PLASMA CENTER TECHNICIAN Work Phone: [facility] 10-16-2021 10:48-0400 SaO2% (BldA) [Mass fraction] 98 % Bridgett Sammie EQUIPMENT MAINTENANCE TECH.PLASMA CENTER TECHNICIAN Work Phone: [facility] 10-16-2021 10:48-0400 Systolic blood pressure 110 mm[Hg] Bridgett Sammie EQUIPMENT MAINTENANCE TECH.PLASMA CENTER TECHNICIAN Work Phone: [facility] Encounters Encounter Date Encounter Type Care Provider Facility Start: 02-19-2025 ambulatory [facility] Facility :[facility] Start: 01-15-2025 ambulatory [facility] Facility :[facility] Start: 01-13-2025 End: 01-13-2025 ambulatory BERTRAM DEL CASTILLO [facility] Comment on above: Right hip pain (Prim fiordaliza Dx); Right leg weakness Start: 01-09-2025 End: 01-09-2025 Documentation procedure Brent Rockwell [facility] Start: 01-07-2025 End: 01-11-2025 ambulatory Bertram Del Castillo DO Work Phone: [facility] Comment on above: Right hip pain (Prim fiordaliza Dx); Right leg weakness Start: 01-01-2025 End: 01-06-2025 ambulatory Bertram Del Castillo DO Work Phone: [facility] Comment on above: Right hip pain (Prim fiordaliza Dx); 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; Other specific joint derangements of unspecified hip, not elsewhere classified; Other specified enthesopathies of unspecified lower limb, excluding foot; Trochanteric bursitis of right hip; Right leg weakness Start: 01-01-2025 ambulatory BERTRAM DEL CASTILLO [facility] Start: 12-25-2024 End: 12-25-2024 Transcribe Orders Bertram Del Castillo DO Work Phone: [facility] Comment on above: 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 (Primary Dx); Other specific joint derangements of unspecified hip, not elsewhere classified; Other specified enthesopathies of unspecified lower limb, excluding foot; Trochanteric bursitis of right hip Start: 12-23-2024 End: 12-23-[address] Bertram Del Castillo DO -[facility] Work Phone: Start: 12-23-2024 End: 12-23-[address] Guilherme Martínez DO Work Phone: [facility] Start: 12-13-2024 End: 12-13-[address] Umair Shabazz MD -[facility] Work Phone: Start: 12-13-2024 End: 12-13-[address] Guilherme Martínez DO Work Phone: [facility] Start: 08-05-2024 End: 10-05-2024 Follow-up encounter Mark Glass MD Work Phone: OB/Gynecology Start: 07-26-2024 End: 07-26-2024 ambulatory MARK GLASS Facility:[facility] Start: 07-26-2024 Encounter for gynecological examination (general) (routine) without abnormal findings MARK GLASS [facility] Start: 06-28-2024 End: 06-28-[address] Guilherme Martínez DO Work Phone: [facility] Work Phone: Start: 06-28-2024 End: 06-28-[address] Guilherme Up DO -[facility] Work Phone: Start: 06-28-2024 End: 06-28-2024 ambulatory Guilherme Martínez Facility:[facility] Start: 06-19-2024 End: 06-19-[address] Guilherme Up DO -[facility] Work Phone: Start: 06-19-2024 End: 06-19-[address] Guilherme Martínez DO Work Phone: [facility] Work Phone: Start: 06-19-2024 End: 06-19-2024 ambulatory Guilherme Martínez Facility:[facility] Start: 04-21-2023 End: 04-21-[address] Guilherme Martínez Work Phone: [facility] Work Phone: Start: 04-21-2023 End: 04-21-[address] Guilherme Martínez Work Phone: [facility]-Pulmonary Services/Neurology Work Phone: Start: 03-15-2023 End: 03-15-2023 ambulatory [facility] Facility:[facility] Start: 02-10-2023 End: 02-10-[address] Guilherme Martínez Work Phone: [facility] Work Phone: Start: 10-27-2022 End: 10-27-[address] Guilherme Martínez Work Phone: [facility] Work Phone: Start: 10-27-2022 End: 10-27-[address] Guilherme Martínez Work Phone: [facility], [facility] Work Phone: Start: 09-28-2022 Non-patient / Non-visit Dr. Henderson Work Phone: [facility] Work Phone: Start: 09-27-2022 End: 09-27-[address] Guilherme Martínez Work Phone: [facility] Work Phone: Start: 09-27-2022 End: 09-27-[address] Guilherme Martínez Work Phone: [facility] Work Phone: Start: 09-23-2022 Non-patient / Non-visit Dr. Henderson Work Phone: [facility] Work Phone: Start: 09-23-2022 Non-patient / Non-visit Dr. Henderson Work Phone: [facility] Start: 09-23-2022 End: 09-23-[address] [facility] Work [facility] Start: 09-14-2022 End: 09-14-[address] Guilherme Martínez Work Phone: [facility] Work Phone: Start: 09-02-2022 End: 09-02-[address] Guilherme Martínez Work Phone: [facility] Work Phone: Start: 06-27-2022 Non-patient / Non-visit Dr. Henderson Work Phone: [facility] Start: 06-27-2022 End: 06-27-[address] Guilherme Martínez Work Phone: [facility] Work Phone: Start: 06-27-2022 End: 06-27-[address] Guilherme Martínez Work Phone: [facility]-Cardiovascular Services Start: 06-20-2022 Non-patient / Non-visit Dr. Henderson Work Phone: [facility] Start: 06-20-2022 End: 06-20-[address] Guilherme Martínez Work Phone: [facility] Work Phone: Start: 06-20-2022 End: 06-20-[address] Guilherme Martínez Work Phone: [facility]-Pulmonary Services/Neurology Start: 06-09-2022 End: 06-09-[address] Guilherme Martínez Work Phone: [facility] Work Phone: Start: 06-09-2022 End: 06-09-[address] Guilherme Martínez Work Phone: [facility]-Laboratory, [facility] Start: 06-09-2022 End: 06-09-[address] Guilherme Martínez Work Phone: [facility] Internal Medicine Start: 06-07-2022 End: 06-07-2022 Emergency department patient visit [facility]-Emergency Department Start: 02-25-2022 Telephone encounter aMrk kaufman MD Work Phone: OB/Gynecology Comment on above: Results Start: 02-17-2022 End: 02-17-2022 Patient encounter procedure Mark Glass MD Work Phone: OB/Gynecology Comment on above: Encounter for gyneco logical examination (general) (routine) without abnormal findings (Primary Dx); Encounter for screening mammogram for breast cancer; Encounter for screening for malignant neoplasm of cervix; Special screening examination for human papillomavirus (HPV) Start: 02-17-2022 End: 02-17-2022 Patient encounter status Mark Glass MD Work Phone: OB/Gynecology Start: 02-10-2022 End: 02-10-[address] Guilherme Martínez Work Phone: [facility] Work Phone: Start: 02-10-2022 End: 02-10-[address] Guilherme Martínez Work Phone: [facility]-Outpatient Breast Imaging Start: 01-31-2022 End: 01-31-[address] Guilherme Martínez Work Phone: [facility] Work Phone: Start: 01-31-2022 End: 01-31-[address] Guilherme Martínez Work Phone: [facility]-Radiology, [facility] Start: 01-04-2022 End: 01-04-[address] Guilherme Martínez Work Phone: [facility] Medicine Start: 10-16-2021 End: 10-16-2021 Patient encounter procedure Bridgett Sammie CARLSON Work Phone: [facility] Comment on above: Urgency of urination (Primary Dx); Acute lower UTI Start: 05-02-[address] Liz Martínez Work Phone: [facility] Procedures Date Procedure Procedure Detail Performing Clinician Start: 12-23-2024 Radex spine lumbosac ral 2/[address] Guilherme Martínez DO Work Phone: Start: 12-13-2024 Plain x-ray of pelvi s and lower extremity Dr. Guilherme Martínez DO Work Phone: Start: 07-26-2024 Microscopic observat ion [Identifier] in Cervix by Cyto stain Ace Chandler PT Start: 06-28-2024 Screening mammography Liz Martínez DO Work Phone: Start: 10-27-2022 Cardiac computed russell ography for calcium scoring Dr. Guilherme Martínez Work Phone: Start: 09-27-[address] Guilherme Martínez Work Phone: Start: 06-07-2022 Plain chest X-ray Start: 02-10-2022 Screening mammography Liz Martínez Work Phone: Start: 01-31-2022 Plain x-ray of wrist Dr Leonela Martínez Work Phone: Start: 10-16-2021 Urnls dip stick/tabl et rgnt auto w/o microscopy Alanna Sanchez EQUIPMENT MAINTENANCE TECH.PLASMA CENTER TECHNICIAN Work Phone: Start: 04-15-2019 Mammography Bridgett Cochran EQUIPMENT MAINTENANCE TECH.PLASMA CENTER TECHNICIAN Work Phone: Plan of Treatment Date Care Activity Detail Author Start: 2045 RSV Vaccines (1 - 1-dose 75+ series) RSV Vaccines (1 - 1-dose 75+ series) [facility] Start: 07-27-2027 Screening for malignant neoplasm of cervix [facility] Start: 02-17-2027 HPV TESTING HPV TESTING [facility] Start: 02-17-2027 PAP TESTING PAP TESTING [facility] Start: 02-17-2027 Screening for malignant neoplasm of cervix HPV/Cotest [facility] Start: 07-26-2025 Screening for malignant neoplasm of cervix Cervical Cancer Screening [facility] Start: 01-29-2025 End: 01-29-2025 ambulatory 01/29/2025 9:30 AM [facility] [id number] [place] [phone] Ace Chandler, PT [facility] Start: 01-27-2025 End: 01-27-2025 ambulatory 01/27/2025 9:30 AM [facility] [id number] [place] [phone] Moira Alfaro PTA [facility] Start: 01-23-2025 End: 01-23-2025 ambulatory 01/23/2025 9:30 AM [facility] [id number] [place] [phone] Brent Rockwell COMMUNICATIONS INSTRUCTOR [facility] Start: 01-20-2025 End: 01-20-2025 ambulatory 01/20/2025 9:30 AM EST Treatment [facility] [address] [place] [address] Graham Becerra, PT Discharge Disposition: Home [facility] Start: 01-16-2025 End: 01-16-2025 ambulatory 01/16/2025 9:30 AM EST Treatment [facility] [id number] [place] [phone] [place] [address] [place] [address] [address] [place] [address] Brent Rockwell, COMMUNICATIONS INSTRUCTOR Discharge Disposition: Home [facility] Start: 01-13-2025 End: 01-13-2025 ambulatory 01/13/2025 9:30 AM EST Treatment [facility] [address] [place] [phone] Bertram Del Castillo, DO [address] [place] [address] [address] [place], [place] [id number] [phone] Ace Chandler, PT Discharge Disposition: Home [facility] Start: 01-09-2025 End: 01-09-2025 ambulatory 01/09/2025 9:30 AM EST Treatment [facility] [address] [place] [phone] [place] [address] [place] [address] [address] [place] [address] Brent Rockwell, COMMUNICATIONS INSTRUCTOR Discharge Disposition: Home [facility] Start: 01-07-2025 End: 01-07-2025 ambulatory 01/07/2025 9:30 AM EST Treatment [facility] [id number] [place] [phone] [place] [address] [place] [address] [address] [place] [address] Brent Rockwell, COMMUNICATIONS INSTRUCTOR Discharge Disposition: Home [facility] Start: 01-01-2025 End: 01-01-2025 ambulatory 01/01/2025 12:30 PM EDT Evaluation [facility] [address] [place] [address] Bertram Del Castillohen, [address] [facility] [address] [place] [address] Casey Alonzo, PT Discharge Disposition: Home [facility] Start: 12-23-2024 Radex spine lumbosacral 2/3 views Lumbar Spine 2 or 3 Views [facility] Start: 12-23-2024 End: 12-23-2024 Patient encounter procedure -[facility] Work Phone: Start: 11-04-2024 COVID-19 Vaccine ( season) COVID-19 Vaccine ( season) [facility] Start: 11-04-2024 COVID-19 Vaccine ( season) COVID-19 Vaccine ( season) [facility] Start: 11-04-2024 Influenza vaccination Influenza Vaccine (#1) [facility] Start: 06-28-2024 MG Breast - bilateral Screening [facility] Start: 04-15-2024 HPV TESTING HPV TESTING [facility] Start: 04-15-2024 PAP TESTING PAP TESTING [facility] Start: 10-27-2022 Following clinical pathway protocol [facility] Start: 06-09-2022 Evaluation of diagnostic study results [facility] Start: 06-07-2022 Blood chemistry [facility] Start: 06-07-2022 End: 06-07-2022 [facility] Start: 03-06-2022 DEPRESSION ASSESSMENT DEPRESSION ASSESSMENT [facility] Start: 11-04-2021 Influenza vaccination INFLUENZA (#1) [facility] Start: 10-16-2021 End: 12-16-2021 Bacteria identified in Urine by Culture [facility] Work Phone: Comment on above: Expected: 10/16/2021, Expires: Start: 03-06-2021 DEPRESSION ASSESSMENT DEPRESSION ASSESSMENT [facility] Start: 2020 Administration of herpes zoster vaccine Zoster Vaccines (1 of 2) [facility] Start: 2020 Pneumococcal Vaccine: 50+ (1 of 1 - PCV) Pneumococcal Vaccine: 50+ (1 of 1 - PCV) [facility] Start: 2020 Pneumococcal Vaccine: 50+ Years (1 of 1 - PCV) Pneumococcal Vaccine: 50+ Years (1 of 1 - PCV) [facility] Start: 2020 Screening for malignant neoplasm of colon Flexible sigmoidoscopy [facility] Start: 2020 SHINGRIX VACCINE (1 of 2) SHINGRIX VACCINE (1 of 2) [facility] Start: 04-15-2020 History and physical examination, annual for health maintenance Wellness Visit [facility] Start: 04-15-2020 Mammography MAMMOGRAM [facility] Start: 04-15-2020 Screening for malignant neoplasm of breast [facility] Start: 05-24-2015 COLOGUARD (FIT-DNA) COLOGUARD (FIT-DNA) [facility] Start: 05-24-2015 Colonoscopy COLONOSCOPY [facility] Start: 05-24-2015 COLORECTAL CANCER SCREENING COLORECTAL CANCER SCREENING [facility] Start: 05-24-[address] COLONOGRAPHY [facility] Start: 05-24-2015 DIABETES SCREEN DIABETES SCREEN [facility] Start: 05-24-2015 Diabetes Screening Diabetes Screening [facility] Start: 05-24-2015 FECAL OCCULT BLOOD FECAL OCCULT BLOOD [facility] Start: 05-24-2015 Lipid panel Lipid Screening [facility] Start: 05-24-2015 LIPID SCREEN LIPID SCREEN [facility] Start: 05-24-2015 Screening for malignant neoplasm of colon [facility] Start: 05-24-2015 SIGMOIDOSCOPY SIGMOIDOSCOPY [facility] Start: 2000 Screening for malignant neoplasm of cervix [facility] Start: 05-24-1991 Screening for malignant neoplasm of cervix Pap Smear [facility] Start: 1989 Hepatitis B vaccination Hepatitis B Vaccines (1 of 3 - 19+ 3-dose series) [facility] Start: 1989 Hepatitis B Vaccine (1 of 3 - 19+ 3-dose series) Hepatitis B Vaccine (1 of 3 - 19+ 3-dose series) [facility] Start: 1989 Urine microalbumin profile [facility] Start: 1989 Vaccination for diphtheria, pertussis, and tetanus Tetanus/Diphtheria/Pert ussis (1 - Tdap) [facility] Start: 1988 Anxiety Screening Anxiety Screening [facility] Start: 1988 Depression Screening Depression Screening [facility] Start: 1988 HEPATITIS C SCREENING HEPATITIS C SCREENING [facility] Start: 1988 Hepatitis C screening Hepatitis C Screening [facility] Start: 1988 HIV SCREENING HIV SCREENING [facility] Start: 1988 HIV screening HIV Screening [facility] Start: 1985 HIV screening HIV Screening [facility] Start: 1982 Adult depression screening assessment [facility] Start: 1973 History and physical examination, annual for health maintenance Wellness Visit [facility] Start: 05-24-1971 [id number] vaccination MMR Vaccines (1 of 1 - Standard series) [facility] Start: 1970 COVID-19 VACCINE (#1) COVID-19 VACCINE (#1) [facility] Start: 1970 HEPATITIS B (1 of 3 - 3-dose series) HEPATITIS B (1 of 3 - 3-dose series) [facility] Start: 1970 Screening for malignant neoplasm of colon [facility] Cardiovascular stres s testing [facility] COLPOSCOPY COLPOSCOPY Proce dures Routine Atypical squamous cells of undetermined significance (ASCUS) on Papanicolaou smear of cervix Ordered: 03/25/2022 [facility] Work Phone: Comment on above: Ordered: 03/25/2022 CT for calcium scori ng WO contrast and CTA W contrast IV Heart and coronary arteries [facility] End: 03-19-2023 STEVIE SCREENING STEVIE SCREENING Radiology Routine Encounter for screening mammogram for breast cancer 1 Occurrences starting 02/17/2022 until 03/19/2023 [facility] Work Phone: Comment on above: 1 Occurrences starting 02/17/2022 until 03/19/2023 MR Lower Extremity Joint [facility] PAP FLUID CERVICAL SCREENING PAP FLUID CERVICAL SCREENING Lab Routine Encounter for screening for malignant neoplasm of cervix Special screening examination for human papillomavirus (HPV) Ordered: 02/17/2022 [facility] Work Phone: Comment on above: Ordered: 02/17/2022 Patient Education ED Chest Pain, Noncardiac [facility] Work Phone: Patient referral [facility] Work Phone: US Carotid arteries [facility] Immunizations Immunization Date Immunization Notes Care Provider Maria R mara 12-02-2018 influenza, injectabl e, quadrivalent, preservative free Mark Glass MD Work Phone: [facility] 12-02-2018 influenza virus vacc ine, unspecified formulation Mark Glass MD Work Phone: [facility] Payers Date Payer Category Payer Self-pay [id number] 2024 [email or web address] TYESHA POE O GORDNO [id number] 2024 Miscellaneous or Other [id number] 2024 Unknown [id number] 2021 Unknown [id number] .[id number] 1970 Unknown [id number] 2..840.1.108864.3.579.2 .902 1970 Unknown [id number] 04.21.830.1.054065.3.579.2 .902 1970 Unknown [id number] .[id number] .902 1970 Unknown [id number] 04.21.830.1.188813.3.579.2 .902 Private Health Insurance [facility] [id number] Unknown ANTHEM [id number] Unknown [employer] [id number] Unknown [id number] Unknown [id number] .[id number] .462 Unknown [id number] 04.21.830.1.590190.3.579.2 .462 Unknown [id number] 04.21.830.1.425548.3.579.2 .462 Unknown [id number] 04.21.830.1.479267.3.579.2 .462 Unknown [id number] 04.21.830.1.480302.3.579.2 .462 Unknown [id number] 04.21.830.1.087541.3.579.2 .462 Unknown [id number] 04.21.830.1.937665.3.579.2 .462 Unknown [id number] 04.21.830.1.905242.3.579.2 .462 Unknown [id number] 04.21.830.1.328316.3.579.2 .462 Social History Date Type Detail Facility Start: 10-16-2021 End: 02-10-2023 Tobacco smoking status AKIS Never smoked tobacco [facility] Start: 10-16-2021 Tobacco use and exposure Smokeless tobacco non-user [facility] Start: 10-16-2021 End: 07-26-2024 Alcohol intake Current drinker of alcohol (finding) [facility] Start: 04-15-2019 History SDOH Alcohol Frequency 3 [facility] Start: 04-15-2019 History SDOH Alcohol Std Drinks 2 [facility] Start: 12-22-2010 History SDOH Alcohol Comment occasionally [facility] Start: 04-15-2019 History SDOH Social Connections Phone 5 [facility] Start: 04-15-2019 History SDOH Social Connections Jain 1 [facility] Start: 1970 Sex Assigned At Not on file [facility] Start: 01-04-2022 End: 02-10-2023 Tobacco smoking status NHIS Unknown if ever smoked [facility] Start: 07-10-2020 Non-smoker [facility] Start: 1970 Sex Assigned At Female [facility] Start: 06-24-2024 End: 07-02-2024 Sex Female (finding) [facility] Start: 04-15-2019 End: 07-26-2024 History of Social function [facility] Start: 04-15-2019 End: 07-26-2024 Social connection and isolation panel [facility] Do you belong to any clubs or organizations such as baptism groups, unions, fraternal or athletic groups, or school groups? No [facility] Are you now , , , , never or living with a partner? [facility] How often to you hav e a drink containing alcohol? 2-4 times a month [facility] How many standard dr inks containing alcohol do you have on a typical day? 3 or 4 [facility] How often do you hav e 6 or more drinks on 1 occasion? Less than monthly [facility] How hard is it for y ou to pay for the very basics like food, housing, medical care, and heating Not hard at all [facility] Do you feel stress - tense, restless, nervous, or anxious, or unable to sleep at night because your mind is troubled all the time - these days [OSQ] Very much [facility] (I/We) worried wheth er (my/our) food would run out before (I/we) got money to buy more. Never true [facility] Functional Status Date Assessment Result Facility 10-06-2014 Are you deaf, or do you have serious difficulty hearing No 10/06/2014 8:20 AM EDT Janis Riggins MA No [facility] 10-06-2014 Are you blind, or do you have serious difficulty seeing, even when wearing glasses No 10/06/2014 8:20 AM EDT Janis Riggins MA No [facility] 10-06-2014 Do you have serious difficulty walking or climbing stairs No 10/06/2014 8:20 AM EDT Janis Riggins MA No [facility] 10-06-2014 Do you have difficul ty dressing or bathing No 10/06/2014 8:20 AM EDT Janis Riggins MA No [facility] 10-06-2014 Because of a physica l, mental, or emotional condition, do you have difficulty doing errands alone such as visiting a physician's office or shopping No 10/06/2014 8:20 AM EDT Janis Riggins MA [facility] Mental Status Date Assessment Result Facility 10-27-2022 [facility] 06-07-2022 Cognitive function Voice/Name [facility] Work Phone: 10-06-2014 Because of a physica l, mental, or emotional condition, do you have serious difficulty concentrating, remembering, or making decisions No 10/06/2014 8:20 AM EDT Janis Riggins MA [facility] Clinical Notes 10-16-2021 to 01-13-2025 Ace Chandler, PT - 01/13/2025 9:30 AM Brent Chambers, COMMUNICATIONS INSTRUCTOR - 01/09/2025 10:02 AM Brent Chambers, COMMUNICATIONS INSTRUCTOR - 01/07/2025 9:30 AM Ace Graves, PT - 01/01/2025 12:30 PM EDT Note Date & Type Note Facility 01-13-2025 History of Presen t illness Narrative Images from the original note were not included. [facility] OUTPATIENT REHABILITATION DAILY TREATMENT NOTE Today's Date 01/13/2025 Patient Name: Dimple Soto Date of : 1970 Current Visit #: 3 Authorized Visits: 7 Case Name: PT-Other intervertebral disc degeneration of lumbar 2024 History: Pre-Treatment Pain Ratin/10 - Right Hip Functional Diagnosis: ICD-10-CM ICD-9-CM 1. Right hip pain M25.551 719.45 2. Right leg weakness R29.898 729.89 Clinical Information: Subjective: Pt states that she feels that the manual was helpful. Pt states that she feels that her right hip strength is still an issue. Objective Treatments: Physical Therapy Exercise Log - 01/13/25 0935 OTHER Precautions/Contraindications right hip pain and low back pain Notes HEP: LTR, SKTC, giovanny stretch, PPT Vitals POC: 05/10 Therapeutic Exercise (46710) Intervention Nustep 5 min level 4 Parameters heel/toe raises 20x Intervention hip abd/ext/flex 15x ea Parameters shuttle press bilateral 2x10 5C Intervention shuttle press single 2x10 4C ea Parameters LTR 10x ea Intervention manual piriformis stretch 3x30 Manual Therapy (40140) Intervention STM and DTM w/ trigger point release to gluts and low back for tissue extensibility and pain free mobility. PT Treatment Times Therex Total Time 30 7431-1160 Manual Therapy Total Time 10 0312-4481 Direct Treatment Time 40 Total Treatment Time 40 5763-1543 Goals: Physical Therapy Ortho Goals: Short term goals: To be achieved in 1-3 wks Pt will be independent with HEP Pt will demonstrate improved right hip flexion to WFL for improved tolerance to seated tasks roasterman goals: To be achieved in 4-6 wks Pt will report 60% improvement in pain and function since starting PT services Pt will demonstrate improved gait stability and independence with improved loading into right hip and improved right hip extension Pt will demonstrate improved right LE strength to 4+/5 for improved tolerance to squatting, bending and lifting during daily tasks Pt will improve right hip flex to WFL for improved getting in/out of vehicles, ADLs, and daily house chores Pt will improve LEFS to 60 for improved tolerance to allow completion of ADL s and ambulation without pain. Patient Education: Quality of movement, Verbal HEP, and Importance of attendance for recovery with patient verbalized understanding. Post-Treatment Pain Rating: pt denies any increased pain, but states she feels fatigued from new exercises. Assessment: Patient had an expected response to treatment. Pt tolerated treatment fair, but fatigues and reports pain when completing single leg stance on the right LE, but able to complete exercise. Skilled Intervention demonstrated by modifications of treatment per exercise log including increased load, increased rate, and increased mobility and safety interventions per exercise log. Progress towards goals as expected. Plan for Next Visit: Treatment Visit with focus on strength and ROM of the right hip ACE CHANDLER PT State License, [id number] documented in this encounter [facility] 01-09-2025 History of Presen t illness Narrative Patient did not attend scheduled treatment session on 01/09/2025. Attempted to contact patient via telephone for follow up, future appointments, and education on importance of compliance with attendance policy. Pt was contacted and is in a new town with work, lost, looking for phone for navigation. My phone call helped in the recovery of phone but pt was unable to make scheduled tx today. Cosigned by Ace Chandler PT at 01/09/2025 10:23 AM EST documented in this encounter [facility] 01-07-2025 History of Presen t illness Narrative Images from the original note were not included. [facility] OUTPATIENT REHABILITATION DAILY TREATMENT NOTE Today's Date 01/07/2025 Patient Name: Dimple Soto Date of : 1970 Current Visit #: 04/17 Authorized Visits: Case Name: PT-Other intervertebral disc degeneration of lumbar 2024 History: Pre-Treatment Pain Scale: 3 Symptoms: gradually improved Functional Diagnosis: 1. Right hip pain 2. Right leg weakness Clinical Information: Subjective: Pt reports to therapy with minimal pain but pt states having high pain tolerance. Objective Treatments: Physical Therapy Exercise Log - 01/07/25 0935 OTHER Precautions/Contraindications right hip pain and low back pain Notes HEP: LTR, SKTC, giovanny stretch, PPT Vitals POC: 04/17 Therapeutic Exercise (01252) Intervention LTR 2x10 Parameters SKTC 2x10 Intervention MET right LE longer than left with right LE IR with ext and shortgun technique Parameters Giovanny stretch 2x30 each Intervention PPT 20x3 Parameters LAQ 2x10 Intervention seated hamstring stretch 2x30 Parameters heel raises 2x10 Intervention piriformis stretch 2x30 Parameters SwB rollouts x20 each Intervention 3- way hip x15 each Parameters bridges 2x10 Intervention LAYNE stretch attempted - too painful Manual Therapy (83390) Intervention STM and DTM w/ trigger point release to gluts and low back for tissue extensibility and pain free mobility. PT Treatment Times Therex Total Time 32 1081-6627 Manual Therapy Total Time 25 9778-7344 Direct Treatment Time 57 Total Treatment Time 57 0227-5519 Goals: Physical Therapy Ortho Goals: Short term goals: To be achieved in 1-3 wks Pt will be independent with HEP Pt will demonstrate improved right hip flexion to WFL for improved tolerance to seated tasks roasterman goals: To be achieved in 4-6 wks Pt will report 60% improvement in pain and function since starting PT services Pt will demonstrate improved gait stability and independence with improved loading into right hip and improved right hip extension Pt will demonstrate improved right LE strength to 4+/5 for improved tolerance to squatting, bending and lifting during daily tasks Pt will improve right hip flex to WFL for improved getting in/out of vehicles, ADLs, and daily house chores Pt will improve LEFS to 60 for improved tolerance to allow completion of ADL s and ambulation without pain. Patient Education: Quality of movement with patient demonstrated understanding. Post-Treatment Pain Scale: 1 Assessment: Patient had an expected response to treatment. Pt tolerated treatment well with only having situational pain 3-way hip, but was unable to complete LAYNE stretch. Pt has pain relief at end of MT. Skilled Intervention demonstrated by modifications of treatment per exercise log including increased load, increased rate, increased cueing, and increased intensity and safety interventions per exercise log. Progress towards goals as expected. Plan for Next Visit: Treatment Visit with focus on pain free ROM and strengthening of low back/LE's. BRENT Hill, COMMUNICATIONS INSTRUCTOR State License, [id number] Cosigned by Ace Chandler, PT at 01/07/2025 10:59 AM EST documented in this encounter [facility] 01-01-2025 History of Presen t illness Narrative Images from the original note were not included. [facility] OUTPATIENT [facility]ABIL[facility]ATION Evaluation Today's Date 01/01/2025 Patient Name: Dimple Soto Date of : 1970 Case Name: PT-Other intervertebral disc degeneration of lumbar 2024 Functional Diagnosis: 1. Right hip pain 2. 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 3. Other specific joint derangements of unspecified hip, not elsewhere classified 4. Other specified enthesopathies of unspecified lower limb, excluding foot 5. Trochanteric bursitis of right hip 6. 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 Pt states that the pain is mostly in her right hip. Pt states that they told her 12 years ago she has DDD. Pt states that the low back is achy most of the day, but the right hip is where she has the most pain. Pt states that when she has IR/ER of the right hip the pain increases a lot. Pt states that when she sits a long time and dries, she has the most pain and tightness in the right hip. Pt states that she will lay in bed all day when she is very sore and it seems to help. Pt states that the right hip has pain that radiates to her groin as well. Pt states that after she received an injection for her hormones and she threw up the whole rest of the day. Pt states that she has some catching, clicking, and popping sensations into the right hip. Previous Imaging: X-ray (back and hip x-rays) Overall rating of health: Good Pain Scale Pain location: hip Average Pain: 3/10 Pain at highest: 7/10 Aggravating factors: sitting prolonged times, being on her feet, Easing factors: rest Personal Goals: Pt wishes to decrease pain in the right hip and improve strength of the right hip to allow completion of ADLs and work related activities. Social Support: Scientologist, social, or cultural considerations to be made aware of before starting treatment: No Red Flags: decreased appetite Comments: due to new medication Barriers to Care: None Fall risk screening Fallen 2 or more times in the last 12 months: No Injured as a result of a fall in the last 12 months: No Scientologist, social, or cultural considerations to be made aware of before starting treatment: No Hip Right Hip Tenderness: piriformis, IT Band, greater trochanter and lateral Muscle Strength: Flexion: 4- Abduction: 4- Adduction: 4- IR: 4 ER: 4 Special Tests Giovanny: Positive Left Hip Muscle Strength: WFL LEFS - 47 Treatments: Physical Therapy Exercise Log - 01/01/25 1316 OTHER Precautions/Contraindications right hip pain and low back pain Notes HEP: LTR, SKTC, giovanny stretch, PPT Vitals POC: 03/17 Therapeutic Exercise (25120) Intervention LTR 10x Parameters SKTC 10x Intervention MET right LE longer than left with right LE IR with ext and shortgun technique Parameters Giovanny stretch 2x30 Intervention PPT 10x3 Parameters LAQ 10x Intervention seated hamstring stretch 2x30 Parameters forward flexion 10x Intervention STM to the lateral right LE with welsh pipe 5 min PT Treatment Times Therex Total Time 25 5482-2764 Direct Treatment Time 25 Total Treatment Time 58 8117-7840 Treatment Plan: Frequency of Visits: 1-3x a week Duration: 12 visits Interventions: Therapeutic Exercise (44654), Neuromuscular Re-Education (04659), Manual Therapy (56314), Therapeutic/ Functional Activities (92395), Gait Training (32202), Aquatic Therapy (81153), Hot/Cold Pack (12961), Electrical Stimulation - Unattended (63226), Ultrasound (84175), and Vasopneumatic (09223) Rehab Potential: good Goals: Physical Therapy Ortho Goals: Short term goals: To be achieved in 1-3 wks Pt will be independent with HEP Pt will demonstrate improved right hip flexion to WFL for improved tolerance to seated tasks jail goals: To be achieved in 4-6 wks Pt will report 60% improvement in pain and function since starting PT services Pt will demonstrate improved gait stability and independence with improved loading into right hip and improved right hip extension Pt will demonstrate improved right LE strength to 4+/5 for improved tolerance to squatting, bending and lifting during daily tasks Pt will improve right hip flex to WFL for improved getting in/out of vehicles, ADLs, and daily house chores Pt will improve LEFS to 60 for improved tolerance to allow completion of ADL s and ambulation without pain. Patient Education provided: Pt was educated on role of PT in pt's POC as well as current functional status and HEP. Clinical Impression: This pt presents with right hip pain leading to limited functional mobility for performing normal daily tasks, social tasks and work tasks. This pt presents with limited strength, rom, endurance and balance which increases safety risk during normal daily activity. Pt would benefit from skilled therapy services to improve strength, rom, endurance and balance for improve safety and function during normal daily tasks and/or work activity. ACE CHANDLER PT State License, [id number] documented in this encounter [facility] 12-23-2024 Progress note [facility] 12-23-2024 Radiology Diagnostic study note [facility] Imaging Services [address] [place] [address] Lumbar Spine 2 or 3 Views MR#: [id number] Acct: [id number] Name: DIMPLE SOTO Rep #: [id number] : 1970 F 54 From: Adeline Franco MD PCP: Dr. Guilherme Martínez, DO Status: DE P AMB Study:Lumbar Spine 2 or 3 Views Date of Exam: 12/23/24 Exam# [id number] Ordering Dr: Bertram Del Castillo DO EXAM: XR Lumbosacral Spine, 2 or 3 Views CLINICAL INDICATION: PAIN TECHNIQUE: Frontal and lateral views of the lumbar spine and sacrum. COMPARISON: No relevant prior studies available. FINDINGS: VERTEBRAE: Mild endplate degenerative changes and disc degeneration of L4 the S1. No acute fracture. Normal alignment. SACRUM/COCCYX: Unremarkable as visualized. No acute fracture. DISC SPACES: No acute findings. No significant narrowing. SOFT TISSUES: Unremarkable. GASTROINTESTINAL TRACT: Fecal retention in the colon consistent with constipation. RAD/Lumbar Spine 2 or 3 Views IMPRESSION: 1. Degenerative changes as above. 2. Fecal retention in the colon consistent with constipation. Reading Location: [facility] CC: Dr. Guilherme Martínez DO; Dr. Bertram Del Castillo DO ~ Fill Manager: Signed [facility] 12-23-2024 Progress note Note Date/Time December 23, 2024 2:59pm [facility] [address] [place] [address] OFFICE VISIT Date of Service: 12/23/24 MR#: [id number] Acct: [id number] Name: DIMPLE SOTO Rep #: [id number] : 1970 Provider: Dr. Deonte Del Castillo DO Age/Sex: 54/F Location: [facility] Status: Signed Intake Vital Signs 12/13/24 10:40 Height 5 ft 8 in Weight: 201 lb 6 oz BMI 30.6 Intake Visit Reasons: RIGHT HIP Accompanied by: Self Allergies latex Allergy (Intermediate, Verified 12/23/24 13:14) rash Penicillins Allergy (Verified 12/23/24 13:14) Swelling Bees Allergy (Uncoded 12/23/24 13:14) Shortness of breath Medications ?Medication ?Instructions ?Recorded ?Confirmed ?Type cholecalciferol (vitamin D3) 125 125 mcg PO DAILY 08/0612/23/24 History mcg (5,000 unit) capsule vitamin B complex (B 1 tab PO DAILY 09/02/2212/05 History Complex-Vitamin B12 tablet) PFSH Medical History Right hip pain Right carpal tunnel syndrome Mobitz type 2 second degree atrioventricular block Palpitations Ganglion cyst of both wrists Abnormal Pap smear of cervix Carpal tunnel syndrome BPPV (benign paroxysmal positional vertigo) Fatigue Carotid bruit Dizziness Chest pain Cervical radiculopathy Arthritis of left wrist Alcohol use Non-smoker CPAP (continuous positive airway pressure) dependence Restless legs Migraine headache Anxiety Sleep apnea in adult Recurrent cold sores Sleep disturbance, unspecified Encounter for preventative adult health care examination Menorrhagia Anxiety about health Chronic constipation Kidney stones Chronic headaches Surgical History History of endometrial ablation History of colonoscopy History of kidney surgery Family History Mother Breast cancer Uncle Colon cancer Father Cancer Social History Smoking Status: Never smoker second hand exposure: No alcohol intake: current alcohol intake frequency: a few times a month substance use type: does not use caffeine: Yes Type: coffee Number of servings: 1 what type of physical activity do you participate in: none frequency: does not exercise HPI RIGHT HIP Details: This documentation accurately reflects the service provided and the decisions made by me, Dr. Bertram Del Castillo, DO 12/23/24 0895. Part of today?s visit was documented by Rosita ALVARENGA, acting as scribe. DIMPLE SOTO is a 54 year old F new to me with medical history significant for butnot limited to obesity, mitral regurgitation, Mobitz type II secondary AV block,anxiety, here today for right hip pain that she has been having 2-3 months. She states that she has always had issues with her hips and them popping in and out of place since childhood. She states that if she is not paying attention and moves the wrong way her hip will pop out of place causing her to fall as it has become more painful. she has never had any trauma to the area. She does have weakness in her leg and at times has to use her hand to assist. Her pain is an aching pain 'in the joint in the mornings but as her day goes on her pain worsens and becomes more of a sharp pain. She denies radiating pain. Denies numbness, tingling or other associated symptoms. She does have some back pain and was told 10 years ago that she has DDD of the lumbar spine. She denies doingPT or injections. At times she does take Ibuprofen for pain. Anterior lateral pain at time when using the hip. When her hip does pop it is painful. Ortho Exam General General: Yes no acute distress and Yes well groomed Neurologic: Yes alert and Yes oriented x3 Psychologic: Yes reasonable and appropriate Right Hip Skin: No Ecchymosis, No soft tissue swelling and No Erythema Impingement Test: 2 Labral Stress Test: 2 Special Tests: No iliopsoas snap, No IT band snap, Yes TTP Greater Troch, Yes RROM flexion pain, Yes C sign, Yes FADIR, Yes FADER and Yes Illiotibial band tenderness HIP: tender over troch bursa IT band tenderness non tender greater sciatic notch PSIS IR 15 with groin pain ER 35 with groin pain deep lateral pain with abduction pain with hyper flexion 95 FADIR + pain with resisted hip flexion 5/5 strength Supplemental Info 12/23/2024 x-ray lumbar spine there is narrowing of the disc space between L4 and L5 with a mild scoliosis more of an asymmetry 12/13/2024 x-ray right hip: Preserved joint space no acute findings of note there is degenerative changes of the lower lumbar spine Coding Level of Care Code Off vis,est,level 4 Diagnoses Degeneration of intervertebral disc of lumbar region with discogenic back pain M51.360 Disc-related pain type: discogenic back pain only Tendinitis of right hip flexor M76.891 Laterality: right Greater trochanteric bursitis of right hip M70.61 Right snapping hip M24.851 Assessment and Plan Assessment and Plan (1) DDD (degenerative disc disease), lumbar: Status: Acute Qualifiers: Disc-related pain type: discogenic back pain only Qualified Code(s): M51.360 - Other intervertebral disc degeneration, lumbar region with discogenic back pain only (2) Hip flexor tendonitis: Status: Acute Qualifiers: Laterality: right Qualified Code(s): M76.891 - Other specified enthesopathies of right lower limb, excluding foot (3) Greater trochanteric bursitis of right hip: Status: Acute (4) Right snapping hip: Status: Acute Orders: Orders Lumbar Spine 2 or 3 Views Today M54.50 - Low back pain, unspecified Referrals Physical Therapy Referral M24.859 - Other specific joint derangements of unspecified hip, not elsewhere classified, M51.369 - Other intervertebral disc degeneration, lumbar region without mention of lumbar back pain or lower extremity pain, M70.61 - Trochanteric bursitis, right hip, M76.899 - Other specified enthesopathies of unspecified lower limb, excluding foot Plan Patient is here today for right hip pain. I did obtain and review xrays today with patient ad advised her that she does have a well preserved joint space of the hip and does have L4-5 degenerative disc disease. I advised patient that I don't believe her hip has ever popped out of place as it can take a lot of forcefor this to occur. Her complaints are consistent with internal snapping and external snapping however I cannot reproduce this on examination. I spoke with patient that she may have have a labrum tear because when I stress her labrum it does cause her alot of pain and this could also be the cause of internal snapping hip however this has been going on since childhood and there is been no trauma so unlikely. If she does have a labral tear it would not be from an acute injury since she has had these issues for so long and for a degenerative labral tear we do not like to surgically repair it. I would recommend she do physical therapy for internal and external snapping hip in addition to hip flexor tendinitis trochanteric bursitis degenerative disc disease lumbar spine and take an anti-inflammatory. If after 6 weeks of physical therapy she is not any better should should follow-up and we can discuss next steps, which would likely be an MRI arthrogram of her right hip. Follow up 6 weeks after physical therapy started if needed or sooner if pain, swelling, numbness or associated symptoms, or concerns develop. All questions answered. Patient in agreement of plan. 12/23/24 1422 <Electronically signed by Bertram gamboa DO> Date _ Bertram Del Castillo DO Cosigner Signature: Date (if applicable) CC: ~ [place] [facility] Work Phone: [phone] 625-354110-10-2025 Evaluation note* Diagnosis Onset Date Resolution Status Admit Date Right carpal tunnel syndrome acute December 13, 2024 10:35am DDD (degenerative disc disease), lumbar acute December 23, 025 1:09pm Greater trochanteric bursiti s of right hip acute December 23 1:09pm Hip flexor tendonitis acute Dec 1:09pm Right snapping hip acute 2024 1:09pm [place] [facility] Work Phone: [phone] 736-368910-10-2025 Radiology Diagnostic study note [facility] Imaging Services [address] [place] [address] HIP, UNI W/ Pelvis 2-3 Views MR#: [id number] Acct: [id number] Name: DIMPLE SOTO Rep #: [id number] : 1970 F 54 From: Anastasiya Rabago MD PCP: Dr. Guilherme Martínez DO Status: DE P AMB Study:HIP, UNI W/ Pelvis 2-3 Views Date of Ex am: 12/13/24 Exam# [id number] Ordering Dr: Umair Shabazz MD PROCEDURE: HIP, UNI W/ PELVIS 2-3 VIEWS 12/13/2024 REASON FOR EXAM: PAIN, NKI TECHNIQUE: Procedure Code: RADHP Modality: DX Procedure: HIP, UNI W/ PELVIS 2-3 VIEWS AP view of the pelvis with AP and frogleg lateral views of the right hip COMPARISON: None FINDINGS: No displaced fracture or traumatic malalignment. Slightly prominent right femoral head neck junction. There is vrzn-gq-ixouhxzg joint space narrowing in the right hip, and mild in the left. Degenerative changes of the lower lumbar spine and pubic symphysis. Zipper projects over the lower lumbar spine. RAD/HIP, UNI W/ Pelvis 2-3 Views IMPRESSION: Qyjc-ez-kurxsrur right hip osteoarthritis. Reading Location: [id number] CC: Dr. Guilherme Martínez DO; Dr. Umair Shabazz MD ~ Fill Manager: Signed [facility]10-10-2025 Progress [facility] [address] [place] [address] [address] [place] [address] OFFICE VISIT Date of Service: 12/13/24 MR#: [id number] Acct: [id number] Name: DIMPLE SOTO Rep #: [id number] : 1970 Provider: Dr. Pete Shabazz MD Age/Sex: 54/F Location: [facility] Status: Signed Intake Vital Signs 06/19/24 13:04 12/13/24 10:40 Height 5 ft 8 in 5 ft 8 in Weight: 205 lb 201 lb 6 oz BMI 31.1 30.6 BP 120/90 H Blood Pressure Location Lt brachial Position Sitting Respiration 16 Pulse 86 Pulse Source Monitor Temp 97.4 F L Temp Source Temporal Pulse Oximetry (%) 97 Oxygen Delivery Method room air Intake Visit Reasons: BL HANDS Chief Complaint: Bilateral Hands/Right Hip Accompanied by: Self Is patient in pain?: No (numbness) Allergies latex Allergy (Intermediate, Verified 12/13/24 10:41) rash Penicillins Allergy (Verified 12/13/24 10:41) Swelling Bees Allergy (Uncoded 12/13/24 10:41) Shortness of breath Medications ?Medication ?Instructions ?Recorded ?Confirmed ?Type cholecalciferol (vitamin D3) 125 125 mcg PO DAILY 08/0612/13/24 History mcg (5,000 unit) capsule vitamin B complex (B 1 tab PO DAILY 09/02/2212/04 History Complex-Vitamin B12 tablet) PFSH Medical History Right carpal tunnel syndrome Mobitz type 2 second degree atrioventricular block Palpitations Ganglion cyst of both wrists Abnormal Pap smear of cervix Carpal tunnel syndrome BPPV (benign paroxysmal positional vertigo) Fatigue Carotid bruit Dizziness Chest pain Cervical radiculopathy Arthritis of left wrist Alcohol use Non-smoker CPAP (continuous positive airway pressure) dependence Restless legs Migraine headache Anxiety Sleep apnea in adult Recurrent cold sores Sleep disturbance, unspecified Encounter for preventative adult health care examination Menorrhagia Anxiety about health Chronic constipation Kidney stones Chronic headaches Surgical History History of endometrial ablation History of colonoscopy History of kidney surgery Family History Mother Breast cancer Uncle Colon cancer Father Cancer Social History Smoking Status: Never smoker second hand exposure: No alcohol intake: current alcohol intake frequency: a few times a month substance use type: does not use caffeine: Yes Type: coffee Number of servings: 1 what type of physical activity do you participate in: none frequency: does not exercise HPI BL HANDS Details: This documentation accurately reflects the service provided and the decisions made by me, Dr. Mariah MD 12/13/24 0924. Part of today?s visit was documented by [ ], acting as scribe. DIMPLE OURS is a 54 year old F here today for FU Right CTS. 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 Supplemental Info Ordering Doctor: Guilherme Martínez DATE OF SERVICE: 06/20/22 Indication: Intermittent numbness of both hands for many years. Symptoms are most prominent during sleep. No axial or radicular neck pain. Evaluate for entrapment neuropathy. Findings: Nerve conduction studies were performed in the right and left upper extremities.The right median motor study recording the abductor pollicis brevis showed a normal amplitude, prolonged distal latencyand normal conduction velocity. The right ulnar motor study recording the abductor digiti minimi dee dee wed a normal amplitude, normal distal latency and normal conduction velocity. No conduction block or focal slowing was present across the elbow. The right median sensory response recording digit two showed a normal amplitude,prolonged latency and markedly slowed conduction velocity. The right ulnar sensory response recording digit five showeda normal amplitude, latency and conduction velocity. The right radial sensory response recording over the extensor snuff box showed a normal amplitude, latency and conduction velocity. The left median motor study recording the abductor pollicis brevis showed a normal amplitude, normal distal latency and normal conduction velocity. The leftulnar motor study recording the abductor digiti minimi showed a normal amplitude, normal distal latency and normal conduction velocity. No conduction block or focal slowing was present across the elbow. The left median sensory response recording digit two showed a normal amplitude, latency and conduction velocity. The left ulnar sensory response recording digitfive showed a normal amplitude, latencyand conduction velocity. The left radialsensory response recording over the extensor snuff box showed a normal amplitude, latency and conduction velocity. Right median-ulnar lumbrical / interosseous motor latencies showed a prolonged median latency compared to the ulnar. Left median-ulnar lumbrical / interosseous motor latencies showed a normal median latency compared to the ulnar. Needle EMG of the right upper extremity and cervical paraspinal muscles was performed. No denervation was seen in any muscle. All motor unit morphology, activation and recruitment patterns were normal. Needle EMG of the left upper extremity and cervical paraspinal muscles was performed. No denervation was seenin any muscle. All motor unit morphology, activation and recruitment patterns were normal. Impression: This is an abnormal study. 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 The pathophysiology is demyelinating without evidence of secondary axonal loss. These findings are compatible with the clinical diagnosis of carpal tunnel syndrome. There is no electrophysiologic evidence of entrapment neuropathy in the left upper extremity. There is no evidence of cervical radiculopathy in either upper extremity. Coding Level of Care Code Off vis,est,level 4 Diagnoses Right carpal tunnel syndrome G56.01 Assessment and Plan Assessment and Plan (1) Right carpal tunnel syndrome: Status: Acute Plan: 54 F with right CTS. counseled on the diagnosis prognosis as well as recovery associate with surgery endoscopic versus mini open. The patient understands wishes to go ahead with right endoscopic carpal tunnel release. No further questions or concerns. Also want to go ahead with a right hip x-ray some groin pain and follow-up with my colleague Dr. Del Castillo. Pros and cons risks and benefits were discussed with the patient including but not limited to infection, pain, stiffness, bleeding, damage to surrounding structures, neurovascular injury, recurrence or retear, failure or wear of hardware or fixation, instability, fracture, deep vein thrombosis and pulmonary embolism, anesthetic risks, , patient dissatisfaction, need for further surgery and other risks. Patient understood and wished to proceed with surgery,and signed the informed consent documentation. Carpal Tunnel Syndrome (CTS) occurs when the median nerve, which runs through the wrist, becomes compressed. Treatment options vary based on the severity of the condition: Non-Surgical Treatments: Wrist Splinting: Wearing a splint at night to keep the wrist in a neutral position. Activity Modification: Avoiding repetitive wrist movements or adjusting work habits. Physical Therapy: Exercises to improve wrist and hand function. Medications: Anti-inflammatory drugs (NSAIDs) or corticosteroid injections to reduce swelling and pain. Surgical Treatment: Carpal Tunnel Release Surgery: A procedure where the ligament pressing on the median nerve is cut to relieve pressure. This is considered when non-surgical treatments are ineffective. Options are min-open or endoscopic. Orders: Orders HIP, UNI W/ Pelvis 2-3 Views Today M25.551 - Pain in right hip Ortho Exam General General: Yes no acute distress Neurologic: Yes alert and Yes oriented x3 Psychologic: Yes reasonable and appropriate Right Wrist/Hand Skin/Wound: Yes CDI, No Swelling, No Ecchymosis, Yes nail intact and Yes capillary refill normal Right Wrist: Yes ROM-Extension 0-60, ROM-Flexion 0-80, ROM-Pronation 0-80, ROM- Supination 0-90, Durken's Test, Tinel's and Phalen's; No Thenar Atrophy or Hypothenar Atrophy Motor: EPL: 5, FDP-2: 5, 1st Dorsal Interosseous: 5 and APB: 5 Sensation: Radial: I, Ulnar: I and Median: D WRIST: cyst volar radial side Left Wrist/Hand Skin/Wound: Yes CDI, No Swelling, No Ecchymosis, Yes nail intact, Yes capillary refill normal and No erythema Left Wrist: Yes ROM-Extension 0-60, Yes ROM-Flexion 0-80, Yes ROM-Pronation 0- 80, Yes ROM-Supination 0-90 and Yes Durken's Test; No Tinel's Motor: EPL: 5, FDP-2: 5, 1st Dorsal Interosseous: 5 and APB: 5 Sensation: Radial: I, Ulnar: I and Median: I WRIST: cyst volar radial side 12/13/24 1100 n MD> Date _ Umair Shabazz MD Cox Bransonign Signature: Date (if applicable) CC: ~ [facility]2025 NoteHNO ID: [id number] Author: MARK GLASS MD Service: ? Author Type: Physician Type: Progress Notes Filed: 07/26/2024 09:57 Note Text: Dimple is a 54 year old who presents for an annual gynecologic exam without complaints. Postmenopausal: unsure- had ablaton Had hot flashes and night sweats last year that have improved HRT use: No. Age at Menarche: 12 Still get period: No LMP: had ablaton Menses: no menses- had ablatoin Menstrual flow: N/A Bleeding amount bothersome: N/A Bleeding between periods: No Period symptoms: None HPV vaccine: No Last pap smear: 02/17/2022 History of abnormal pap: Yes Colposcopy: Yes: 2018 Leep: No. Cone biopsy: No. Bothersome pelvic pain: No Last mammogram: 2021 normal History of abnormal mammogram: No OB History Gravida6 Para6 Term0 Preterm0 AB0 Living6 SAB0 IAB0 Ectopic0 Multiple0 Live Births0 Microbiology Supervisor History LMP: LMP Unknown, Ablation Age at Menarche: Age at First : Age at Menopause: Microbiology Supervisor History Comments: Sexual Activity: Yes; Male Contraception: Vasectomy PAST MEDICAL HISTORY Diagnosis Date Arthritis Atrioventricular [...] Mother Cancer Father Colon Cancer Paternal Uncle SOCIAL HISTORY Social History Tobacco Use Smoking status: Never Smokeless tobacco: Never Vaping Use Vaping status: Never Used Substance Use Topics Alcohol use: Yes Comment: occasionally Drug use: No REVIEW OF SYSTEMS Abdomen: No abdominal pain, nausea, vomiting, diarrhea, or constipation. No bloating, early satiety, indigestion, or increased flatulence. Bladder: No dysuria, gross hematuria, urinary frequency, urinary urgency, or incontinence Breast: No breast lumps, nipple d/c, overlying skin changes, redness or skin retraction Allergies and current medication updated:Yes SENSITIVE EXAM: The sensitive examination was discussed with the Patient or Patient's Authorized Superintendent Job. As applicable, any other physician, advance practice provider, medical student, or other health professional student that will be observing or involved in the sensitive examination for educational or training purposes was discussed with the Patient or Authorized Superintendent Job. The Patient or Authorized Superintendent Job has agreed to proceed with the sensitive examination. (Sensitive examination includes inspection and/or palpation of the breasts, pelvis, prostate and anorectal regions). EXAM: Ht 5' 7 (1.70m) Wt 202 lb (91.6kg) BMI 31.63 kg/(m2). GENERAL: pleasant, female in no apparent distress HEENT: Normocephalic and atraumatic NECK: full range of motion DERMATOLOGY: Normal, without lesions, non-icteric, and non-hirsute BREAST: soft, non-tender, symmetric, no dominant mass, normal nipple-areolar complex, no lymphadenopathy, and no nipple discharge CHEST: Normal inspiratory effort ABDOMEN: soft, non-tender, and no masses PELVIC: external genitalia normal, normal Bartholin's glands, urethra, Le Grand's glands, no vulvar lesions, no cervical lesions, good vaginal support, physiologic discharge present, normal appearing perineal body and perianal region BIMANUAL: uterus normal size, shape and consistency, no adnexal masses, and non-tender RECTOVAGINAL: deferred. NEURO: exam grossly non-focal EXTREMITIES: normal ASSESSMENT/PLAN: 1) Health maintenance: Pap done with HPV. Mammogram up to date. Followed by PCP and completed at [facility]. Nutrition, exercise and routine health maintenance exams reviewed. Colon cancer screening: Patient completed in [place] per her report. She is going to check if she is due and message or call for order if needed. TSH/lipids/glucose: followed by PCP 2) Follow up one year or sooner as needed Mark Glass, [facility]04-16-2025 Evaluation note* Diagnosis Onset Date Resolution Status Admit Date Dyspnea on exertion acute June 19, 2024 12:56pm Obesity acute June 19 12:56pm Physical exam, annual acute Apr 2024 12:56pm [facility] Work Phone: 1(603) 263-416601-10-2024 NoteHNO ID: [id number] Author: ALEXANDRA PATEL MD Service: ? Author Type: Physician Type: Progress Notes Filed: 03/25/2023 16:27 Note Text: PRIMARY CARE PHYSICIAN: Guilherme Martínez DO [address] [place] [address] REFERRING PHYSICIAN: Tera Kumar [address] [address] Patient Care Team: Guilherme Martínez DO as PCP - General (Family Medicine) Tera Kumar MD as Specialty Spout Positioner (Cardiology) CHIEF COMPLAINT: Evaluation of arrhythmia HISTORY OF PRESENT ILLNESS: Ms. Soto is a 52 year old female who presents today for evaluation of heart block. She was experiencing chest discomfort, evaluated by Dr. Kumar of [facility]. Cardiac monitoring revealed a brief period of 3:1 AV block that occurred at about midnight. Ms. Soto states she was almost certainly sleeping at [...] Sinus rhythm 72 bpm; normal conduction intervals (NY 162 ms, QRS 82 ms); QTc 455 [...] - ICD9: 786.59, ICD10: R07.89 IMPRESSION: Ms. Soto has a ch (more content not included)...[facility] 06-20-2022 Procedure [facility]04-04-[address] Burdick [facility] June 07, 2022 5:52pm Note Date/Time June 07, 2022 3:54 pm [facility] Medical Records Department [address] [place] [address] Emergency Department Summary 06/07/22 MR#: [id number] Acct: [id number] Name: DIMPLE SOTO Rep #:[id number] : 1970 52 From: Elliot Burdick DO PCP: Dr. Guilherme Martínez DO Status:RE G ER Location: ED HPI History of Present Illness Chief Complaint: Chest Pain Narrative Narrative: 52-year-old female presenting with chest pain. She states that it is mild but it feels like pressure. It radiates to the left arm. Is been constant since early this morning. She does complain of some intermittent lightheadedness. She states recently she moved and noticed lightheadedness then. She was about amonth ago. Patient denies any cardiac history. No DVT/PE risk factors. PFSH PFSH Medical History Alcohol use Anxiety Anxiety about health Chronic constipation Chronic headaches CPAP (continuous positive airway pressure) dependence Encounter for preventative adult health care examination Kidney stones Menorrhagia Migraine headache Non-smoker Recurrent cold sores Restless legs Sleep apnea in adult Sleep disturbance, unspecified Home Medications NK 01/04/22 [History Last Taken Unknown] Allergy/AdvReac Type Severity Reaction Status Date / Time latex Allergy Intermediate rash Verified 01/04/22 15:10 Penicillins Allergy Swelling Verified 01/04/22 15:10 Family History Mother Breast cancer Uncle Colon cancer Father Cancer Surgical History History of colonoscopy History of endometrial ablation History of kidney surgery Social History Smoking Status: Never smoker second hand exposure: No alcohol intake: current alcohol intake frequency: holidays/special occasions only substance use type: does not use caffeine: Yes what type of physical activity do you participate in: none frequency: does not exercise ROS ROS ED Constitutional Constitutional ED: Denies chills or fever(s) Eyes Eyes: Denies none or blurry vision ENT ENT ED: Denies rhinorrhea or sore throat Cardiovascular Cardiovascular: Reports chest pain Respiratory/Chest Respiratory/Chest: Reports dyspnea and dyspnea on exertion; Denies cough Gastrointestinal Gastrointestinal: Denies abdominal pain or nausea Genitourinary Genitourinary ED: Denies dysuria or hematuria Musculoskeletal Musculoskeletal: Denies arthralgias or back pain Integumentary Denies abscess Neurologic Neurologic: Denies headache(s) Psychiatric Psychiatric: Denies anxiety or depression EXAM Physical Exam Const Vital Signs: 06/07/22 15:13 06/07/22 15:24 06/07/22 15:30 Temperature 97.1 F L Temperature Source Temporal Pulse Rate 88 Respiratory Rate 18 Respiratory Effort Normal Blood Pressure 122/82 H Blood Pressure Mean 95 Pulse Ox 97 Oxygen Delivery Method Room Air Room Air 06/07/22 16:12 Temperature Temperature Source Pulse Rate 66 Respiratory Rate 14 Respiratory Effort Blood Pressure 134/78 H Blood Pressure Mean 96 Pulse Ox 99 Oxygen Delivery Method Room Air Positive well nourished General Appearance ED: NAD HEENT Reports moist mucous membranes Eyes PERRL and EOMs intact bilaterally Chest Wall inspection of chest normal Resp normal respiratory effort and clear to auscultation bilaterally Auscultation: Negative for rales, rhonchi or wheezes Cardio regular rate and regular rhythm Neuro oriented x3 and CN's II-XII intact bilaterally Psych mental status grossly normal Heart Score History: Slightly/Non-Suspicious ECG: Normal Age: >45 - <65 years Risk Factors: No Risk Factors Troponin: </= Normal Limit Score: 1 MDM MDM MDM Narrative Medical decision making narrative: Patient presenting with chest pain. She has had this all day greater than 8 hours EKG on my interpretation shows a normal sinus rhythm with a ventricular rate of 71 bpm without sign of ischemic change or dysrhythmia. Chest x-ray on my interpretation shows no acute process. Radiology services agrees. CBC and BMP unremarkable. High-sensitivity troponin is less than 8:03 hours of pain Ernst do not believe she needs any repeat lab work. Patient PERC negative. At thispoint I feel patient stable for outpatient follow-up. She is counseled on return precautions. Impression: 1. Chest pain Lab Data Labs: Laboratory Results - last 24 hr 06/07/22 06/07/22 15:30 15:30 WBC 6.1 RBC 4.83 Hgb 13.5 Hct 41.4 MCV 85.7 MCH 28.0 MCHC 32.6 RDW Std Deviation 42.3 RDW Coeff of Huma 13.5 Plt Count 291 MPV 9.6 Immature Gran % (Auto) 0.300 Neut % (Auto) 58.7 Lymph % (Auto) 30.9 Moody % (Auto) 7.8 Eos % (Auto) 1.8 Baso % (Auto) 0.5 Absolute Neuts (auto) 3.6 Absolute Lymphs (auto) 1.87 Nucleated RBC % 0 Sodium 139 Potassium 3.8 Chloride 107 Carbon Dioxide 27.0 Anion Gap 5 BUN 21 H Creatinine 0.91 Estim Creat Clear Calc 75.58 Est GFR (MDRD) Af Amer 83 Est GFR (MDRD) Non-Af 69 BUN/Creatinine Ratio 23.1 H Glucose 94 Calcium 9.3 Troponin I High Sens < 3 L Radiography Diagnostic Testing: Clinical Impression(s) from Imaging Studies Chest X-Ray 06/07/22 15:25 IMPRESSION: No evidence of acute cardiopulmonary process. Electronically Signed: Stephon Stokes DO at 16:26 EDT Reading Location ID and State: [address] [place] [address] , Service support , Discharge Plan Triage Chief Complaint: Chest Pain ED Provider: Elliot Burdick Dx/Rx/DC Orders Instructions: ED Chest Pain, Noncardiac Prescriptions: No Action NK Primary Care Provider: Guilherme Martínez Referrals: Guilherme Martínez DO [Primary Care Provider] - Disposition Disposition: Home, Self Care What to do if you have Problems For any increased pain, shortness of breath, bleeding, nausea or vomiting, chestpain, or any unexpected problems, contact your Primary Care Provider. Call [facility] ([phone]) or report to the closest Emergency Room. Call 911 if necessary. 06/07/22 1752 <Electronically signed by Elliot Burdick DO> Cosigner Signature (if applicable): CC: Dr. Guilherme Martínez DO ~ Signed [facility] Work Phone: 1(864) 150-645401-20-2023 Miscellaneous Notes* Telephone Encounter - Mark Glass MD - 03/25/2022 2:59 PM EST filed * Telephone Encounter - Rohini Min LPN - 03/25/2022 2:24 PM EST Pt was contacted and appt scheduled for colposcopy. Please sign order. Rohini Min LPN * Telephone Encounter - Lachelle Manley RN - 03/25/2022 9:30 AM EST Please contact patient and follow up regarding new insurance. Patient still needs scheduled for a colposcopy with Dr. Glass. Lachelle Manley RN * Telephone Encounter - Nasreen Gilmore - 03/16/2022 2:58 PM EST Called patient and she will call us with her new insurance so we can schedule. She is to be coveredunder her through [employer]. Macy has her eligible but not Dimple so they will check into it and call Nasreen Gilmore * Telephone Encounter - Anne Ramirez RN - 03/15/2022 3:58 PM EST Patient does have updated insurance now. Attempted to transferr to [facility], but was on hold for extended period of time. Please contact patient to schedule colposcopy with Dr. Glass. Anne Ramirez RN * Telephone Encounter - Ruth Ann Nails LPN - 02/25/2022 12:29 PM EST Patient notified and stated that effective Mar.06 her insurance is changing. Patient will call back with new insurance and schedule appointment. Please leave note open until patient calls to schedule * Telephone Encounter - Ruth Ann Nails LPN - 02/25/2022 12:29 PM EST ----- Message from Mark Glass MD sent at 02/25/2022 12:10 PM EST ----- Notify pt of minimally abnormal pap smear. No clear guidelines for how to proceed given prior ASC-Hpap with HPV always being negative. Recommend colposcopy just to be safe [facility] History of Present illness Narrative* Mark Glass MD - 02/17/2022 8:56 AM EST Dimple is a 51 year old who presents for an annual gynecologic exam without complaints. Postmenopausal: S/p ablation HRT use: No. Last Pap: 04/22/2019 normal HPV: 04/18/2019 negative History of abnormal pap: Yes - ASC-H negative HPV in 2018 Last mammogram: 2021 at [facility] History of abnormal mammogram: No Sexually active: Yes Patient concerns for STD exposure: No. 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 Nutrition, exercise and routine health maintenance exams reviewed. Colon cancer screening: up to date with screening per patient. 2) Follow up one year or sooner as needed Mark Glass DO documented in this encounterAvita [facility]08-13-2022 Instructions* Patient Instructions* Bridgett Cochran APRN.CNP - 10/16/2021 11:02 AM EDT Macrobid for 5 days Tylenol/ibuprofen as needed for discomfort AZO otc Increase hydration -Follow up with PCP or return to clinic if symptoms not improving in 3 days or if you develop any new (or worsening) symptoms such as fever, chills or back pain go to ER. documented in this encounterAvita [facility]08-13-2022 History of Present illness Narrative* Bridgett Cochran APRN.CNP - 10/16/2021 10:59 AM EDT Subjective The history is provided by the patient. No language pathologist was used. ELIE Dimple Soto is a 51 year old female who presents today for CC of burning, urgency and frequency since Positive for Dysuria, Increase in frequency of urination, and Urgency, Negative for Sense of incomplete void, Fevers, Vomiting, Diarrhea, Abdominal pain , Back/Flank pain, Blood in urine, and Vaginalitch or discharge Chance of : No Last [...] have confirmed and edited as necessary, the [facility] Review of Systems Constitutional: Negative for chills [...] for higher level of care were discussed indetail warranting prompt ER evaluation. Bridgett Cochran APRN.CNP [facility]* Diagnosis Urgency of urination- Primary Acute lower UTI Urinary tract infection, site not specified documented in this encounter [facility]* Diagnosis Onset Date Resolution Status Arthritis of left wrist acut e Cervical radiculopathy acute Chronic constipation [facility] Work Phone: Evaluation note* Diagnosis Encounter for gynecological examination (general) (routine) without abnormal findings- Primary Encounter for screening mammogram for breast cancer Encounter for screening for malignant neoplasm of cervix Screening for malignant neoplasm of the cervix Special screening examination for human papillomavirus (HPV) documented in this encounter [facility] note* Diagnosis Atypical squamous cells of undetermined significance (ASCUS) on Papanicolaou smear of cervix- Primary documented in this encounter [facility] noteNo assessment information availableWZanesville City Hospital Work Phone: Evaluation note* Diagnosis Onset Date Resolution Status BPPV (benign paroxysmal positional vertigo) acute Chest pain acute Dizziness acute Fatigue [facility] Work Phone: Evaluation note* Diagnosis Onset Date Resolution Status BPPV (benign paroxysmal positional vertigo) acute Dizziness acute Fatigue acute Chest pain chronic Carpal tunnel syndrome acute Chest pain chronic Palpitations chronic Sleep apnea in adult [facility] Work Phone: Evaluation note* Diagnosis Onset Date Resolution Status Carpal tunnel syndrome acute Chest pain chronic Palpitations chronic Sleep apnea in adult [facility] Work Phone: Evaluation note* Diagnosis Onset Date Resolution Status Dyspnea on exertion acute Palpitations chronic Sleep apnea in adult [facility] Work Phone: Evaluation note* Diagnosis 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- Primary Other specific joint derangements of unspecified hip, not elsewhere classified Other specified enthesopathies of unspecified lower limb, excluding foot Trochanteric bursitis of right hip [facility] Diagnosis Onset Date Resolution Status Admit Date Right carpal tunnel syndrome acute December 13, 2024 10:35am DDD (degenerative disc disease), lumbar acute December 23 1:09pm Greater trochanteric bursiti s of right hip acute December 23 1:09pm Hip flexor tendonitis acute Dec 1:09pm Right snapping hip acute 2024 1:09pm [facility] Work Phone: Evaluation note* Diagnosis Right hip pain- Primary Pain in joint, pelvic region and thigh 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 Other specific joint derangements of unspecified hip, not elsewhere classified Other specified enthesopathies of unspecified lower limb, excluding foot Trochanteric bursitis of right hip Right leg weakness Muscle weakness (generalized) [facility] Diagnosis Right hip pain- Primary Pain in joint, pelvic region and thigh Right leg weakness Muscle weakness (generalized) [facility]* Diagnosis Right hip pain- Primary Pain in joint, pelvic region and thigh Right leg weakness Muscle weakness (generalized) [facility] Discharge instructionsAmbulatory Orders* Physical Therapy Referral Location: None Selected [facility] Work Phone: Progress note Author Umair Shabazz [facility] Note Date/Time December 13, 2024 1 1:00am [facility] [address] [place] [address] [address] [place] [address] OFFICE VISIT Date of Service: 12/13/24 MR#: [id number] Acct: [id number] Name: DIMPLE SOTO Rep #: [id number] : 1970 Provider: Dr. Pete Shabazz MD Age/Sex: 54/F Location: [facility] Status: Signed Intake Vital Signs 06/19/24 13:04 12/13/24 10:40 Height 5 ft 8 in 5 ft 8 in Weight: 205 lb 201 lb 6 oz BMI 31.1 30.6 BP 120/90 H Blood Pressure Location Lt brachial Position Sitting Respiration 16 Pulse 86 Pulse Source Monitor Temp 97.4 F L Temp Source Temporal Pulse Oximetry (%) 97 Oxygen Delivery Method room air Intake Visit Reasons: BL HANDS Chief Complaint: Bilateral Hands/Right Hip Accompanied by: Self Is patient in pain?: No (numbness) Allergies latex Allergy (Intermediate, Verified 12/13/24 10:41) rash Penicillins Allergy (Verified 12/13/24 10:41) Swelling Bees Allergy (Uncoded 12/13/24 10:41) Shortness of breath Medications ?Medication ?Instructions ?Recorded ?Confirmed ?Type cholecalciferol (vitamin D3) 125 125 mcg PO DAILY 08/0612/13/24 History mcg (5,000 unit) capsule vitamin B complex (B 1 tab PO DAILY 09/02/2212/04 History Complex-Vitamin B12 tablet) [facility] Medical History Right carpal tunnel syndrome Mobitz type 2 second degree atrioventricular block Palpitations Ganglion cyst of both wrists Abnormal Pap smear of cervix Carpal tunnel syndrome BPPV (benign paroxysmal positional vertigo) Fatigue Carotid bruit Dizziness Chest pain Cervical radiculopathy Arthritis of left wrist Alcohol use Non-smoker CPAP (continuous positive airway pressure) dependence Restless legs Migraine headache Anxiety Sleep apnea in adult Recurrent cold sores Sleep disturbance, unspecified Encounter for preventative adult health care examination Menorrhagia Anxiety about health Chronic constipation Kidney stones Chronic headaches Surgical History History of endometrial ablation History of colonoscopy History of kidney surgery Family History Mother Breast cancer Uncle Colon cancer Father Cancer Social History Smoking Status: Never smoker second hand exposure: No alcohol intake: current alcohol intake frequency: a few times a month substance use type: does not use caffeine: Yes Type: coffee Number of servings: 1 what type of physical activity do you participate in: none frequency: does not exercise HPI BL HANDS Details: This documentation accurately reflects the service provided and the decisions made by me, Dr. Umair Shabazz MD 12/13/24 9122. Part of today?s visit was documented by [ ], acting as scribe. DIMPLE SOTO is a 54 year old F here today for FU Right CTS. 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 The numbness is in the hand worsein the night will sometimes wake her up. Supplemental Info Ordering Doctor: Guilherme Martínez DATE OF SERVICE: 06/20/22 Indication: Intermittent numbness of both hands for many years. Symptoms are most prominent during sleep. No axial or radicular neck pain. Evaluate for entrapment neuropathy. Findings: Nerve conduction studies were performed in the right and left upper extremities.The right median motor study recording the abductor pollicis brevis showed a normal amplitude, prolonged distal latency and normal conduction velocity. The right ulnar motor study recording the abductor digiti minimi showed a normal amplitude, normal distal latency and normal conduction velocity. No conduction block or focal slowing was present across the elbow. The right median sensory response recording digit two showed a normal amplitude,prolonged latency and markedly slowed conduction velocity. The right ulnar sensory response recording digit five showed a normal amplitude, latency and conduction velocity. The right radial sensory response recording over the extensor snuff box showed a normal amplitude, latency and conduction velocity. The left median motor study recording the abductor pollicis brevis showed a normal amplitude, normal distal latency and normal conduction velocity. The leftulnar motor study recording the abductor digiti minimi showed a normal amplitude, normal distal latency and normal conduction velocity. No conduction block or focal slowing was present across the elbow. The left median sensory response recording digit two showed a normal amplitude, latency and conduction velocity. The left ulnar sensory response recording digitfive showed a normal amplitude, latency and conduction velocity. The left radialsensory response recording over the extensor snuff box showed a normal amplitude, latency and conduction velocity. Right median-ulnar lumbrical / interosseous motor latencies showed a prolonged median latency compared to the ulnar. Left median-ulnar lumbrical / interosseous motor latencies showed a normal median latency compared to the ulnar. Needle EMG of the right upper extremity and cervical paraspinal muscles was performed. No denervation was seen in any muscle. All motor unit morphology, activation and recruitment patterns were normal. Needle EMG of the left upper extremity and cervical paraspinal muscles was performed. No denervation was seenin any muscle. All motor unit morphology, activation and recruitment patterns were normal. Impression: This is an abnormal study. 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 The pathophysiology is demyelinating without evidence of secondary axonal loss. These findings are compatible with the clinical diagnosis of carpal tunnel syndrome. There is no electrophysiologic evidence of entrapment neuropathy in the left upper extremity. There is no evidence of cervical radiculopathy in either upper extremity. Coding Level of Care Code Off vis,est,level 4 Diagnoses Right carpal tunnel syndrome G56.01 Assessment and Plan Assessment and Plan (1) Right carpal tunnel syndrome: Status: Acute Plan: 54 F with right CTS. counseled on the diagnosis prognosis as well as recovery associate with surgery endoscopic versus mini open. The patient understands wishes to go ahead with right endoscopic carpal tunnel release. No further questions or concerns. Also want to go ahead with a right hip x-ray some groin pain and follow-up with my colleague Dr. Del Castillo. Pros and cons risks and benefits were discussed with the patient including but not limited to infection, pain, stiffness, bleeding, damage to surrounding structures, neurovascular injury, recurrence or retear, failure or wear of hardware or fixation, instability, fracture, deep vein thrombosis and pulmonary embolism, anesthetic risks, , patient dissatisfaction, need for further surgery and other risks. Patient understood and wished to proceed with surgery,and signed the informed consent documentation. Carpal Tunnel Syndrome (CTS) occurs when the median nerve, which runs through the wrist, becomes compressed. Treatment options vary based on the severity of the condition: Non-Surgical Treatments: Wrist Splinting: Wearing a splint at night to keep the wrist in a neutral position. Activity Modification: Avoiding repetitive wrist movements or adjusting work habits. Physical Therapy: Exercises to improve wrist and hand function. Medications: Anti-inflammatory drugs (NSAIDs) or corticosteroid injections to reduce swelling and pain. Surgical Treatment: Carpal Tunnel Release Surgery: A procedure where the ligament pressing on the median nerve is cut to relieve pressure. This is considered when non-surgical treatments are ineffective. Options are min-open or endoscopic. Orders: Orders HIP, UNI W/ Pelvis 2-3 Views Today M25.551 - Pain in right hip Ortho Exam General General: Yes no acute distress Neurologic: Yes alert and Yes oriented x3 Psychologic: Yes reasonable and appropriate Right Wrist/Hand Skin/Wound: Yes CDI, No Swelling, No Ecchymosis, Yes nail intact and Yes capillary refill normal Right Wrist: Yes ROM-Extension 0-60, ROM-Flexion 0-80, ROM-Pronation 0-80, ROM-Supination 0-90, Durken's Test, Tinel's and Phalen's; No Thenar Atrophy or Hypothenar Atrophy Motor: EPL: 5, FDP-2: 5, 1st Dorsal Interosseous: 5 and APB: 5 Sensation: Radial: I, Ulnar: I and Median: D WRIST: cyst volar radial side Left Wrist/Hand Skin/Wound: Yes CDI, No Swelling, No Ecchymosis, Yes nail intact, Yes capillary refill normal and No erythema Left Wrist: Yes ROM-Extension 0-60, Yes ROM-Flexion 0-80, Yes ROM-Pronation 0- 80, Yes ROM-Supination 0-90 and Yes Durken's Test; No Tinel's Motor: EPL: 5, FDP-2: 5, 1st Dorsal Interosseous: 5 and APB: 5 Sensation: Radial: I, Ulnar: I and Median: I WRIST: cyst volar radial side 12/13/24 1100 <Electronically signed by Umair schuler MD> Date _ Umair Shabazz MD Cosigner Signature: Date (if applicable) CC: ~ [employer] Work Phone: Reason for referral (narrative)* Diagnostic Procedure Only (Routine) - Pending Review Specialty Diagnoses / Procedures Referred By Ruslan grimes Referred To Contact [facility] Diagnoses Encounter for screening mammogram for breast cancer Procedures STEVIE SCREENING SCREENING MAMMOGRAPHY BI 2-VIEW BREAST INC CAD Mark Glass MD [address] [place] [address] [facility] [address] [place] [address] Referral ID Status Reason Start Date Expiration Date Visits Requested Visits Authorized [id number] Pending Review Auto-Generat ed Referral 2 03/19/2023 1 1 [facility] (narrative)* Outpatient Procedure (Routine) - Denied Specialty Diagnoses / Procedures Referred By Ruslan grimes Referred To Contact [facility] Diagnoses Atypical squamous cells of undetermined significance (ASCUS) on Papanicolaou smear of cervix Procedures COLPOSCOPY COLPOSCOPY CERVIX BX CERVIX & ENDOCRV CURRETAGE Mark Glass MD [address] [facility] [address] [facility] [address] [place] [address] Referral ID Status Reason Start Date Expiration Date V isits Requested Visits Authorized [id number] Denied Auto-Generate d Referral 03/25/2022 03/05/2023 1 0 URI Mcgregor for referral (narrative)No reason for referral information availableWZanesville City Hospital Work Phone: Chief Complaint and Reason for Visit Chief Complaint Admit Date YEARLY June 19, 2024 12: 56pm screening June 28, 2024 12: 10pm Reason for Visit Admit Date Dyspnea on exertion June 19, 2024 12: 56pm Obesity June 19, 2024 12: 56pm Physical exam, annual June 19, 2024 1 2:56pm Chief Complaint RE-EST. BROWN PATIEN T WRIST PAIN SCREENING Reason for Visit Arthritis of left wr ist Cervical radiculopathy Chronic constipation Chief Complaint SCREENING chest pain Chief Complaint chest pain ER FU Reason for Visit BPPV (benign paroxys mal positional vertigo) Chest pain Dizziness Fatigue Chief Complaint chest pain ER FU CERVICAL RADICULOPATHY CERVICAL RADICULOPATHY Reason for Visit BPPV (benign paroxys mal positional vertigo) Chest pain Dizziness Fatigue Chief Complaint chest pain ER FU CERVICAL RADICULOPATHY CERVICAL RADICULOPATHY CHEST PAIN CHEST PAIN Reason for Visit BPPV (benign paroxys mal positional vertigo) Chest pain Dizziness Fatigue Chief Complaint chest pain ER FU CERVICAL RADICULOPATHY CERVICAL RADICULOPATHY CHEST PAIN CHEST PAIN BL HANDS CP (BROWN) Palpitations Amb Documentation BILAT WRISTS CYSTS Amb Documentation Reason for Visit BPPV (benign paroxys mal positional vertigo) Dizziness Fatigue Chest pain Carpal tunnel syndrome Chest pain Palpitations Sleep apnea in adult Chief Complaint BL HANDS CP (BROWN) Palpitations Amb Documentation BILAT WRISTS CYSTS Amb Documentation PALPITATIONS Reason for Visit Carpal tunnel syndro me Chest pain Palpitations Sleep apnea in adult Chief Complaint FU FROM CARDIOLOGY V ISIT, RAPID HEART RATE DYSPNEA Reason for Visit Dyspnea on exertion Palpitations Sleep apnea in adult Chief Complaint Admit Date YEARLY June 19, 2024 12: 56pm Chief Complaint Admit Date BL HANDS December 13, 2024 1 0:35am Room 4 December 13, 2024 1 1:03am RIGHT HIP December 23, 2024 1 :09pm RM 3 December 23, 2024 1 :22pm Reason for Visit Admit Date Right carpal tunnel syndrome December, 2024 10:35am DDD (degenerative disc disease), lumbar December 23, 2024 1:09pm Greater trochanteric bursitis of right h ip December 23, 2024 1:09pm Hip flexor tendonitis December 23, 2024 1:09pm Right snapping hip December 23, 2024 1 :09pm Family History Relationship Condition Age at Onset Recorded Date/T rickey mother Malignant neoplasm of breast Unknown uncle Malignant neoplasm of colon Unknown father Malignant neoplasm Unknown Advance Directives Advance Directive Response Recorded Date/ Time Living Will No October 17 1 4:23am Power of Subassembly Supervisor No October 17, 021 4:23am Advance Directive Response Recorded Date/ Time Living Will No June 07, 2022 3:24pm Power of Subassembly Supervisor No June 07 3 3:24pm Advance Directive Response Recorded Date/ Time Living Will No February 08 2:36pm Power of Subassembly Supervisor No February 08, 2023 2:36pm Summary Purpose Additional Source Comments Source Comments (unrecognize d section and content) In the event this informatio n is protected by the Federal Confidentiality of Alcohol and Drug Abuse Patient Records regulations: The Federal rules restrict any use of the information to criminally investigate or prosecute any alcohol or drug abuse patient.[facility] the event this information is protected by the Federal Confidentiality of Alcohol and Drug Abuse Patient Records regulations: The Federal rules restrict any use of the information to criminally investigate or prosecute any alcohol or drug abuse patient.[facility] HospitalIn the event this information is protected by the Federal Confidentiality of Alcohol and Drug Abuse Patient Records regulations: The Federal rules restrict any use of the information to criminally investigate or prosecute any alcohol or drug abuse patient.[facility] HospitalIn the event this information is protected by the Federal Confidentiality of Alcohol and Drug Abuse Patient Records regulations: The Federal rules restrict any use of the information to criminally investigate or prosecute any alcohol or drug abuse patient.[facility] Reason for Visit (unrecogniz ed section and content) Reason Comments UTI Urgency, burning wit h urination x 3 days Reason Comments Well Woman Specialty Diagnoses / Procedures Referred By Contac t Referred To Contact [facility] Diagnoses PATIENT PREPAID FOR APPOINTMENT Procedures PT PREPAID FOR ANNUAL EXAM Mark Glass MD [address] [place] [address] [facility] [address] [place] [address] Referral ID Status Reason Start Date Expiration Date Visits Requested Visits Authorized [id number] Authorized OON/Self Pay Override 2 01/26/2023 1 20 Reason Comments Results Reason Comments Physical Therapy Specialty Diagnoses / Procedures Referred By Contac t Referred To Contact Rehabilitation Diagnoses 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 Other specific joint derangements of unspecified hip, not elsewhere classified Other specified enthesopathies of unspecified lower limb, excluding foot Trochanteric bursitis of right hip Bertram Del Castillo, [address] [facility] [address] [place] [address] Phone: tel: fax: [facility] [address] [place] [address] Phone: tel: fax: Referral ID Status Reason Start Date Expiration Date Visits Re quested Visits Authorized [id number] Closed 12/25/2024 12/25/2025 1 1 Referral ID Status Reason Start Date Expiration Date V isits Requested Visits Authorized [id number] Authorized 12/25/2024 12/25/2025 1 7 Care Teams (unrecognized sec tion and content) Truck And Transport Mechanic Relationship Specialty Start Date End Date Guilherme Martínez DO PCP - General 09/18/09 Truck And Transport Mechanic Relationship Specialty Start Date End Date Guilherme Martínez DO PCP - General 09/18/09 Truck And Transport Mechanic Relationship Specialty Start Date End Date Guilherme Martínez DO PCP - General 09/18/09 Team Status: Active Member Role Status Dates Dr. Guilhemre Martínez , DO Family Provider Active Dr. Guilherme Martínez , DO Primary Care Provider Active Team Status: Inactive Member Role Status Dates Dr. Guilherme Martínez , DO Primary Care Provider, Attend ing Provider Active Team Status: Inactive Member Role Status Dates Dr. Guilherme Martínez , DO Primary Care Provider Active Dr. Elliot Burdick , DO Emergency Provider Active Team Status: Inactive Member Role Status Dates Dr. Guilherme Martínez , DO Primary Care Provider, Referr ing Provider Active Savage Davis YARN TEXTURE MACHINE OPERATOR, YARN TEXTURE MACHINE OPERATOR-C Attending Provider Active Team Status: Inactive Member Role Status Dates Dr. Guilherme Martínez , DO Primary Care Provider Active Dr. Elliot Burdick , DO Attending Provider, Emergency Provider Active Team Status: Inactive Member Role Status Dates Dr. Guilherme Martínez , DO Primary Care Provider Active Savage Davis YARN TEXTURE MACHINE OPERATOR, YARN TEXTURE MACHINE OPERATOR-C Attending Provider, Referring Prov ider Active Team Status: Active Member Role Status Dates Dr. Guilherme Martínez , DO Primary Care Pr ovider, Referring Provider, Other Provider Active Dr. Juan Golden , DO Attending Provider Active Team Status: Inactive Member Role Status Dates Dr. Guilherme Martínez , DO Primary Care Pr ovider, Attending Provider, Referring Provider Active Team Status: Active Member Role Status Dates Dr. Guilherme Martínez , DO Primary Care Provider Active Savage Davis YARN TEXTURE MACHINE OPERATOR, YARN TEXTURE MACHINE OPERATOR-C Referring Provider, Other Provider Active Dr. Camilo Austin MD Attending Provider Active Team Status: Active Member Role Status Dates Dr. Guilherme Martínez , DO Primary Care Provider Active Dr. Scott Desai MD Attending Provider Active Team Status: Active Member Role Status Dates Dr. Guilherme Martínez , DO Primary Care Pr ovider, Referring Provider, Other Provider Active Dr. Patrick Golden , DO Attending Provider Active Team Status: Active Member Role Status Dates Dr. Guilherme Martínez , DO Primary Care Provider Active Dr. Scott Desai MD Attending Provider Active Savage Davis YARN TEXTURE MACHINE OPERATOR, YARN TEXTURE MACHINE OPERATOR-C Referring Provider Active Team Status: Inactive Member Role Status Dates Dr. Guilherme Martínez , DO Primary Care Provider, Referr ing Provider Active Umair Shabazz MD Attending Provider Active Team Status: Inactive Member Role Status Dates Dr. Guilherme Martínez , DO Primary Care Provider, Referr ing Provider Active Dr. Tera Kumar MD Attending Provider Active Team Status: Active Member Role Status Dates Dr. Guilherme R Brown , DO Primary Care Provider Active Dr. Tera Kumar MD Attending Provider Active Team Status: Active Member Role Status Dates Dr. Guilherme Martínez DO Primary Care Provider Active Christine Kilpatrick YARN TEXTURE MACHINE OPERATOR, YARN TEXTURE MACHINE OPERATOR-C Attending Provider Active Team Status: Active Member Role Status Dates Dr. Guilherme Martínez DO Primary Care Provider Active Alfie Fisher YARN TEXTURE MACHINE OPERATOR, YARN TEXTURE MACHINE OPERATOR-C Attending Provider Active Team Status: Inactive Member Role Status Dates Dr. Guilherme Martínez DO Primary Care Provider Active Umair Shabazz MD Attending Provider, Referring Prov ider Active Team Status: Inactive Member Role Status Dates Dr. Guilherme Martínez DO Primary Care Provider Active Dr. Tera Kumar MD Attending Provider, Referring Pr ovider Active Team Status: Inactive Member Role Status Dates Jeremy HILLS PA Attending Provider Active Dr. Guilherme Martínez DO Primary Care Provider, Referr ing Provider Active Team Status: Inactive Member Role Status Dates Dr. Guilherme Martínez DO Primary Care Provider Active Jeremy HILLS PA Attending Provider, Referring Prov ider Active Team Status: Active Member Role Status Dates Dr. Guilherme Martínez DO Primary Care Provider Active Team Status: Inactive Member Role Status Dates Dr. Guilherme Martínez DO Primary Care Provider Active Start: June 19, 2024 End: June 19, 2024 Dr. Guilherme Martínze DO Attending Provider Active Start: June 19, 2024 End: June 19, 2024 Dr. Guilherme Martínez DO Referring Provider Active Start: June 19, 2024 End: June 19, 2024 Team Status: Inactive Member Role Status Dates Dr. Guilherme Martínez DO Primary Care Provider Active Start: June 28, 2024 End: June 28, 2024 Dr. Guilherme Martínez DO Attending Provider Active Start: June 28, 2024 End: June 28, 2024 Dr. Guilherme Martínez DO Referring Provider Active Start: June 28, 2024 End: June 28, 2024 Truck And Transport Mechanic Relationship Specialty Start Date End Date Guilherme Martínez DO [address] [place] [address] PCP - General Family Medicine 11/28/22 Tera Kumar MD [address] [address] Specialty Spout Positioner Cardiology 11/28/22 Truck And Transport Mechanic Relationship Specialty Start Date End Date Bertram Del Castillo DO [facility] [address] PCP - General Orthopedic Surgery 12/25/24 Team Status: Active Member Role/Relationship Status Dates Dr. Guilherme Martínez DO Primary care physician Active Team Status: Inactive Member Role/Relationship Status Dates Dr. Guilherme Martínez DO Primary care physician Active Start: December 13, 2024 End: December 13, 2024 Dr. Guilherme Martínez DO Referring Provider Active Start: December 13, 2024 End: December 13, 2024 Umair Shabazz MD Attending physician Active S tart: December 13, 2024 End: December 13, 2024 Team Status: Inactive Member Role/Relationship Status Dates Dr. Guilherme Martínez DO Primary care physician Active Start: December 13, 2024 End: December 13, 2024 Dr. Camilo Austin MD Attending physician Active Start: December 13, 2024 End: December 13, 2024 Team Status: Inactive Member Role/Relationship Status Dates Dr. Guilherme Martínez DO Primary care physician Active Start: December 23, 2024 End: December 23, 2024 Dr. Guilherme Martínez DO Referring Provider Active Start: December 23, 2024 End: December 23, 2024 Dr. Bertram Del Castillo DO Attending physician Active Start: December 23, 2024 End: December 23, 2024 Team Status: Inactive Member Role/Relationship Status Dates Dr. Guilherme Martínez DO Primary care physician Active Start: December 23, 2024 End: December 23, 2024 Dr. Camilo Austin MD Attending physician Active Start: December 23, 2024 End: December 23, 2024 Truck And Transport Mechanic Relationship Specialty Start Date End Date Bertram Del Castillo DO [facility] [address] PCP - General Orthopedic Surgery 12/25/24 Truck And Transport Mechanic Relationship Specialty Start Date End Date Bertram Del Castillo DO [address] [facility] [address] [place] [address] PCP - General Orthopedic Surgery 12/25/24 Truck And Transport Mechanic Relationship Specialty Start Date End Date Bertram Del Castillo DO [address] [facility] [address] [place] [address] PCP - General Orthopedic Surgery 12/25/24 Truck And Transport Mechanic Relationship Specialty Start Date End Date Bertram Del Castillo DO [address] [facility] [address] [place], [place] [address] PCP - General Orthopedic Surgery 12/25/24 Truck And Transport Mechanic Relationship Specialty Start Date End Date Bertram Del Castillo DO [address] [facility] [address] [place], [place] [address] PCP - General Orthopedic Surgery 12/25/24 Goals (unrecognized section and content) Goals may be documented in a n alternate sectionGoals may be documented in an alternate sectionGoals may be documented in an alternate sectionGoals may be documented in an alternate sectionGoals may be documented in an alternate sectionGoals may be documented in an alternate sectionGoals may be documented in an alternate sectionGoals may be documented in an alternate sectionGoals may be documented in an alternate sectionGoals may be documented in an alternate sectionGoals may be documented in an alternate sectionGoals may be documented in an alternate sectionGoals may be documented in an alternate sectionGoals may be documented in an alternate sectionGoals may be documented in an alternate section INFORMATION SOURCE (unrecogn ized section and content) DATE CREATED AUTHOR 03/26/2023 [facility] DATE CREATED AUTHOR AUTHOR'S ORGANIZ ATION 08/06/2024 [facility] DATE CREATED AUTHOR AUTHOR'S ORGANIZ ATION 01/13/2025 [facility] DATE CREATED AUTHOR AUTHOR'S ORGANIZ ATION 01/13/2025 [facility] FOR RECORDS PERTAINING TO PATIENTS WHO ARE [...] BE BASED ON THE PRIMARY CLINICAL RECORDS. [facility]. provides no warranty or guarantee of the accuracy or completeness of information in this document.
[2025-02-19] MEDS: Lactated Ringers 1,000 ML 15 ML IV (06:28)
--- NOTE | 2025-02-19 07:12 | HP.PCM_ITS ---
HPI - General HPI Narrative EDVIN SOTO, is a 54 F who presents for right endoscopic carpal tunnel release. no change to h and p. ok to proceed. ok with leaving alone the ganglion cyst. rab, post op instructions, narcotic counselling. right wrist marked. no further questions or concerns. MR#: [id number] Acct: [id number] Name: EDVIN SOTO Rep #: [id number] : 1970 Provider: Dr. Umair Shabazz MD Age/Sex: 54/F Location: [facility] [place] Status: Signed Intake Vital Signs 06/19/2512:04 12/13/2509:40 Height 5 ft 8 in 5 ft 8 in Weight: 205 lb 201 lb 6 oz BMI 31.1 30.6 BP 120/90 H Blood Pressure Location Lt brachial Position Sitting Respiration 16 Pulse 86 Pulse Source Monitor Temp 97.4 F L Temp Source Temporal Pulse Oximetry (%) 97 Oxygen Delivery Method room air Intake Visit Reasons: BL HANDS Chief Complaint: Bilateral Hands/Right Hip Accompanied by: Self Is patient in pain?: No (numbness) Allergies latex Allergy (Intermediate, Verified 12/13/24 10:41) rash Penicillins Allergy (Verified 12/13/24 10:41) Swelling Bees Allergy (Uncoded 12/13/24 10:41) Shortness of breath Medications ?Medication ?Instructions ?Recorded ?Confirmed ?Type cholecalciferol (vitamin D3) 125 125 mcg PO DAILY 09/02/22 12/13/24 Histo ry mcg (5,000 unit) capsule vitamin B complex (B 1 tab PO DAILY 09/02/22 12/13/24 History Complex-Vitamin B12 tablet) PFSH Medical History Right carpal tunnel syndrome Mobitz type 2 second degree atrioventricular block Palpitations Ganglion cyst of both wrists Abnormal Pap smear of cervix Carpal tunnel syndrome BPPV (benign paroxysmal positional vertigo) Fatigue Carotid bruit Dizziness Chest pain Cervical radiculopathy Arthritis of left wrist Alcohol use Non-smoker CPAP (continuous positive airway pressure) dependence Restless legs Migraine headache Anxiety Sleep apnea in adult Recurrent cold sores Sleep disturbance, unspecified Encounter for preventative adult health care examination Menorrhagia Anxiety about health Chronic constipation Kidney stones Chronic headaches Surgical History History of endometrial ablation History of colonoscopy History of kidney surgery Family History Mother Breast cancer Uncle Colon cancer Father Cancer Social History Smoking Status: Never smoker second hand exposure: No alcohol intake: current alcohol intake frequency: a few times a month substance use type: does not use caffeine: Yes Type: coffee Number of servings: 1 what type of physical activity do you participate in: none frequency: does not exercise HPI BL HANDS Details: This documentation accurately reflects the service provided and the decisions made by me, Dr. Umair Shabazz MD 12/13/24 0988. Part of today?s visit was documented by [ ], acting as scribe. EDVIN SOTO is a 54 year old F here today for FU Right CTS. 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 The numbness is in the hand worse in the night will sometimes wake her up. Supplemental Info Ordering Doctor: Hector Martínez DATE OF SERVICE: 06/20/22 Indication: Intermittent numbness of both hands for many years. Symptoms are most prominent during sleep. No axial or radicular neck pain. Evaluate for entrapment neuropathy. Findings: Nerve conduction studies were performed in the right and left upper extremities. The right median motor study recording the abductor pollicis brevis showed a normal amplitude, prolonged distal latency and normal conduction velocity. The right ulnar motor study recording the abductor digiti minimi showed a normal amplitude, normal distal latency and normal conduction velocity. No conduction block or focal slowing was present across the elbow. The right median sensory response recording digit two showed a normal amplitude, prolonged latency and markedly slowed conduction velocity. The right ulnar sensory response recording digit five showed a normal amplitude, latency and conduction velocity. The right radial sensory response recording over the extensor snuff box showed a normal amplitude, latency and conduction velocity. The left median motor study recording the abductor pollicis brevis showed a normal amplitude, normal distal latency and normal conduction velocity. The left ulnar motor study recording the abductor digiti minimi showed a normal amplitude, normal distal latency and normal conduction velocity. No conduction block or focal slowing was present across the elbow. The left median sensory response recording digit two showed a normal amplitude, latency and conduction velocity. The left ulnar sensory response recording digit five showed a normal amplitude, latency and conduction velocity. The left radial sensory response recording over the extensor snuff box showed a normal amplitude, latency and conduction velocity. Right median-ulnar lumbrical / interosseous motor latencies showed a prolonged median latency compared to the ulnar. Left median-ulnar lumbrical / interosseous motor latencies showed a normal median latency compared to the ulnar. Needle EMG of the right upper extremity and cervical paraspinal muscles was performed. No denervation was seen in any muscle. All motor unit morphology, activation and recruitment patterns were normal. Needle EMG of the left upper extremity and cervical paraspinal muscles was performed. No denervation was seen in any muscle. All motor unit morphology, activation and recruitment patterns were normal. Impression: This is an abnormal study. 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 The pathophysiology is demyelinating without evidence of secondary axonal loss. These findings are compatible with the clinical diagnosis of carpal tunnel syndrome. There is no electrophysiologic evidence of entrapment neuropathy in the left upper extremity. There is no evidence of cervical radiculopathy in either upper extremity. Coding Level of Care Code Off vis,est,level 4 Diagnoses Right carpal tunnel syndrome G56.01 Assessment and Plan Assessment and Plan (1) Right carpal tunnel syndrome: Status: Acute Plan: 54 F with right CTS. counseled on the diagnosis prognosis as well as recovery associate with surgery endoscopic versus mini open. The patient understands wishes to go ahead with right endoscopic carpal tunnel release. No further questions or concerns. Also want to go ahead with a right hip x-ray some groin pain and follow-up with my colleague Dr. Del Castillo. Pros and cons risks and benefits were discussed with the patient including but not limited to infection, pain, stiffness, bleeding, damage to surrounding structures, neurovascular injury, recurrence or retear, failure or wear of hardware or fixation, instability, fracture, deep vein thrombosis and pulmonary embolism, anesthetic risks, , patient dissatisfaction, need for further surgery and other risks. Patient understood and wished to proceed with surgery, and signed the informed consent documentation. Carpal Tunnel Syndrome (CTS) occurs when the median nerve, which runs through the wrist, becomes compressed. Treatment options vary based on the severity of the condition: Non-Surgical Treatments: Wrist Splinting: Wearing a splint at night to keep the wrist in a neutral position. Activity Modification: Avoiding repetitive wrist movements or adjusting work habits. Physical Therapy: Exercises to improve wrist and hand function. Medications: Anti-inflammatory drugs (NSAIDs) or corticosteroid injections to reduce swelling and pain. Surgical Treatment: Carpal Tunnel Release Surgery: A procedure where the ligament pressing on the median nerve is cut to relieve pressure. This is considered when non-surgical treatments are ineffective. Options are min-open or endoscopic. Orders: Orders HIP, UNI W/ Pelvis 2-3 Views Today M25.551 - Pain in right hip Ortho Exam General General: Yes no acute distress Neurologic: Yes alert and Yes oriented x3 Psychologic: Yes reasonable and appropriate Right Wrist/Hand Skin/Wound: Yes CDI, No Swelling, No Ecchymosis, Yes nail intact and Yes capillary refill normal Right Wrist: Yes ROM-Extension 0-60, ROM-Flexion 0-80, ROM-Pronation 0-80, ROM- Supination 0-90, Durken's Test, Tinel's and Phalen's; No Thenar Atrophy or Hypothenar Atrophy Motor: EPL: 5, FDP-2: 5, 1st Dorsal Interosseous: 5 and APB: 5 Sensation: Radial: I, Ulnar: I and Median: D WRIST: cyst volar radial side Left Wrist/Hand Skin/Wound: Yes CDI, No Swelling, No Ecchymosis, Yes nail intact, Yes capillary refill normal and No erythema Left Wrist: Yes ROM-Extension 0-60, Yes ROM-Flexion 0-80, Yes ROM-Pronation 0- 80, Yes ROM-Supination 0-90 and Yes Durken's Test; No Tinel's Motor: EPL: 5, FDP-2: 5, 1st Dorsal Interosseous: 5 and APB: 5 Sensation: Radial: I, Ulnar: I and Median: I WRIST: cyst volar radial side [facility] Medical History (Updated 02/10/25 @ 11:07 by Ana Wilson) Wears glasses Post-menopausal History of renal disease CPAP (continuous positive airway pressure) dependence Sleep apnea Right hip pain Right carpal tunnel syndrome Mobitz type 2 second degree atrioventricular block Palpitations Ganglion cyst of both wrists Abnormal Pap smear of cervix Carpal tunnel syndrome BPPV (benign paroxysmal positional vertigo) Fatigue Carotid bruit Dizziness Chest pain Cervical radiculopathy Arthritis of left wrist Alcohol use Non-smoker CPAP (continuous positive airway pressure) dependence Restless legs Migraine headache Anxiety Sleep apnea in adult Recurrent cold sores Sleep disturbance, unspecified Encounter for preventative adult health care examination Menorrhagia Anxiety about health Chronic constipation Kidney stones Chronic headaches Home Medications ?Medication ?Instructions ?Recorded ?Last Taken ?Type cholecalciferol (vitamin D3) 125 125 mcg PO DAILY 08/06 Unknown History mcg (5,000 unit) capsule vitamin B complex (B 1 tab PO DAILY 09/02/22 Unkn own History Complex-Vitamin B12 tablet) Allergy/AdvReac Type Severity Reaction Status Date / Time latex Allergy Intermediate rash Verified 02/19/25 06:24 Penicillins Allergy Swelling Verified 02/19/25 06:24 Bees Allergy Shortness Uncoded 12/23/24 13:14 of breath Family History Mother Breast cancer Uncle Colon cancer Father Cancer Surgical History History of endometrial ablation History of colonoscopy History of kidney surgery Social History Smoking Status: Never smoker second hand exposure: No alcohol intake: current alcohol intake frequency: a few times a month substance use type: does not use caffeine: Yes Type: coffee Number of servings: 1 what type of physical activity do you participate in: none frequency: does not exercise Vital Signs Vital Signs Vital Signs: 02/19/25 06:29 02/19/25 06:29 02/19/25 06:29 Temperature 98.4 F Temperature Source Temporal Pulse Rate 86 Respiratory Rate 16 Respiratory Pattern Normal Blood Pressure 109/83 H Blood Pressure Mean 91 Blood Pressure Source Monitor Blood Pressure Position Semi-Fowlers Blood Pressure Location Right Arm Baseline BP 109/83 Pulse Ox 97 Oxygen Delivery Method Room Air Weight Weight: 187 lb 6.287 oz Body Mass Index (BMI) 28.5
--- NOTE | 2025-02-19 07:17 | PCM.PRE.AN2 ---
ASA Classification* ASA Classification ASA Classification: 2 Assessment & Plan Anesthesia* Anesthesia Assessment Anesthesia Assessment: Discussed sedation and/or anesthesia options, risks, benefits, and alternatives with patient/parents/legal guardian/POA. Questions invited. The patient/parents/legal guardian/POA seems to understand and agrees to proceed with anesthesia plan. Reviewed the physical assessment, medical history, allergy history and patient home medications list prior to surgery/procedure/anesthetic and documented any changes. Performed airway and anesthesia risk assessments. Anesthesia Type Anesthesia Type: MAC (General As a backup.) History Source History Obtained from:: Patient and Chart Anesthesia Focused Assessment* Temperature: 98.4 F Pulse Rate: 86 Blood Pressure: 109/83 Respiratory Rate: 16 Pulse Ox: 97 Oxygen Delivery Method: Room Air Airway Assessment Mouth opens: >3 cm Mallampati Score: III Teeth Condition: Intact Neck Range of motion (ROM): Limited ROM (Slight Decrease) Labs Anesthesia Preop lab: CBC WBC, (4.4-11.0) 6.5 K/mm3 06/19/24, 13:45 RBC, (4.2-5.4) 4.80 M/mm3 06/19/24, 13:45 Hgb, (12.0-15.0) 13.5 g/dL 06/19/24, 13:45 Hct, (37-47) 40.8 % 06/19/24, 13:45 Plt Count, (150-450) 289 K/mm3 06/19/24, 13:45 CHEMISTRY Potassium, (3.3-5.1) 4.2 mmol/L 06/19/24, 13:45 Sodium, (133-145) 140 mmol/L 06/19/24, 13:45 Magnesium, (1.6-2.6) 2.4 mg/dL 06/09/22, 12:03 BUN, (4-19) 21 mg/dL H 06/19/24, 13:45 Creatinine, (0.70-1.20) 0.63 mg/dL L 06/19/24, 13:45 Glucose, (70-99) 91 mg/dL 06/19/24, 13:45 TSH, (0.300-4.200) 3.330 uIU/mL 06/19/24, 13:45 COAG Urine Test Negative Negative 01/18/18, 11:00 Pre-Assessment Diagnosis/Proposed Procedure Planned Operative Procedure(s): (R) Right Endoscopic Carpal Tunnel Release Anesthesia History Anesthesia History - research and insights executive: Anesthesia History - research and insights executive Hx Hospitalization No 02/10/25 11:02 Any Problems With Anesthesia No 02/10/25 11:02 Cholinesterase deficiency No 02/10/25 11:02 You/Your Family Experience No 02/10/25 11:02 fever (hyperthermia) with Relationship Recent Exposure to Contagious No 02/19/25 06:29 Disease Does patient have nerve No 02/10/25 11:02 stimulator Patient instructed to have device shut off --Does patient have Pacemaker No 02/19/25 06:29 or ICD? When Was Last Pacemaker Check QUESTION #4 FULL TEXT: You/Your Family Experience fever (hyperthermia) with Anesthesia Last Oral Intake Last Oral intake: Last Oral Intake NPO since 20:00 02/19/25 06:29 Meds taken in AM with sips of No 02/19/25 06:29 water? Meds patient instructed to take am of surgery PONV PONV - research and insights executive: PONV - research and insights executive Female Yes 02/10/25 11:02 HX of Motion Sickness No 02/10/25 11:02 HX of N/V After Surgery No 02/10/25 11:02 Non-Smoker Yes 02/10/25 11:02 Duration of Surgery greater No 02/10/25 11:02 than 60 minutes Number of Risk Factors 2 02/10/25 11:02 PONV Score Moderate Risk 02/10/25 11:02 Height & Weight Height & Weight: Anesthesia: Height & Weight Height 5 ft 8 in 02/19/25 06:29 Weight: 85 kg 02/19/25 06:29 Body Mass Index (BMI) 28.5 02/19/25 06:29 Respiratory Assessment Respiratory Assessment - research and insights executive: Respiratory Tract Infection Hx - research and insights executive Hx Respiratory Tract Infection No 02/10/25 11:02 STOP Sleep Apnea STOP Sleep Apnea - research and insights executive: STOP Sleep Apnea - research and insights executive Hx Hypertension No 02/10/25 11:02 Hx Sleep Apnea Yes 02/10/25 11:02 CPAP Yes 02/10/25 11:02 BIPAP No 02/10/25 11:02 Do you snore loudly (louder than talking or can be heard Do you often feel tired/ fatigued/ sleepy during daytime? Has anyone observed you stop breathing during sleep? STOP Results Positive 02/10/25 11:02 QUESTION #5 FULL TEXT : Do you snore loudly (louder than talking or can be heard through closed doors)? Tobacco Use History Tobacco Use History - research and insights executive: Tobacco Use History - research and insights executive Tobacco Use Non-smoker 02/08/23 14:36 Smoking Status Never smoker 02/10/25 11:02 Hx Tobacco Use No 02/10/25 11:02 Years Smoking Packs Smoked per Day Smoking Cessation Date was within the last 15 years Hx Smoking Cessation Date Hx Smoking Cessation Counseling Hematologic Medial History Hematologic Hx - research and insights executive: Hematologic Medical Hx - cloth baler Hx of Blood Transfusion No 02/10/25 11:02 Hx of Transfusion in last 3 No 02/10/25 11:02 Months Date of Last Transfusion (if within last 3 months) Ever experience any problems No 02/10/25 11:02 with transfusion(s)? Specify any problems Hx of Preganancy in last 3 No 02/10/25 11:02 Months Nurse Filling Out Transfusion [email or web address] 02/10/25 11:02 & Questions: Date: 02/10/25 02/10/25 11:02 Time: 11:08 02/10/25 11:02 Patient unable to answer at this time (ie. confused, unrespo /Reproduction History /Reproductive History - research and insights executive: /Reproductive Hx- research and insights executive Hx Now No 02/10/25 11:02 Gestational Age (in weeks): EDC: Hx Hx Para Hx Section SAB No 02/10/25 11:02 Does the father of the baby or his family experience fever w Father of the baby Malignant Hypertension history comment Active Medications Active Medications: Current Medications Generic Name Dose Route Start Last Admin Trade Name Freq PRN Reason Stop Dose Admin Cefazolin Sodium 2 gm/ Sodium 110 mls @ 200 mls/hr 02/19/25 07:00 Chloride IV 02/19/25 07:32 INTRAOP ONE Lactated Ringer's 1,000 mls @ 15 mls/hr 02/19/25 06:15 02/19/25 06:28 IV 15 mls/hr .Q48H MANDI Administration PFSH Medical History Wears glasses Post-menopausal History of renal disease CPAP (continuous positive airway pressure) dependence Sleep apnea Right hip pain Right carpal tunnel syndrome Mobitz type 2 second degree atrioventricular block Palpitations Ganglion cyst of both wrists Abnormal Pap smear of cervix Carpal tunnel syndrome BPPV (benign paroxysmal positional vertigo) Fatigue Carotid bruit Dizziness Chest pain Cervical radiculopathy Arthritis of left wrist Alcohol use Non-smoker CPAP (continuous positive airway pressure) dependence Restless legs Migraine headache Anxiety Sleep apnea in adult Recurrent cold sores Sleep disturbance, unspecified Encounter for preventative adult health care examination Menorrhagia Anxiety about health Chronic constipation Kidney stones Chronic headaches Home Medications ?Medication ?Instructions ?Recorded ?Last Taken ?Type cholecalciferol (vitamin D3) 125 125 mcg PO DAILY 09/02/22 Unknown History mcg (5,000 unit) capsule vitamin B complex (B 1 tab PO DAILY 09/02/22 Unknown History Complex-Vitamin B12 tablet) Allergy/AdvReac Type Severity Reaction Status Date / Time latex Allergy Intermediate rash Verified 02/19/25 06:24 Penicillins Allergy Swelling Verified 02/19/25 06:24 Bees Allergy Shortness Uncoded 12/23/24 13:14 of breath Family History Mother Breast cancer Uncle Colon cancer Father Cancer Surgical History History of endometrial ablation History of colonoscopy History of kidney surgery Social History Smoking Status: Never smoker second hand exposure: No alcohol intake: current alcohol intake frequency: a few times a month substance use type: does not use caffeine: Yes Type: coffee Number of servings: 1 what type of physical activity do you participate in: none frequency: does not exercise Review of Systems (Anesthesia) ROS Narrative System reviewed and no additional complaints, except as documented.
[2025-02-19] MEDS: Midazolam 2 MG/2 ML Syringe IV (07:30)
[2025-02-19] MEDS: Cefazolin 1 GM/5 ML Vial 2 GM IV (07:30)
[2025-02-19] MEDS: Lidocaine 1% (5 ml sdv) 5 ML Vial IV (07:33)
[2025-02-19] MEDS: fentaNYL 100 MCG/2 ML Ampul IV (07:50)
--- NOTE | 2025-02-19 08:06 | PCM.OPRPT ---
Procedures Musculoskeletal [id number]: Other Procedure See Report Operative Report (Standard) Operative Information Date of Procedure: 02/19/25 Pre-Operative Diagnosis: R carpal tunnel syndrome Post-Operative Diagnosis: same Surgery/Procedure Performed: R endoscopic carpal tunnel release vascular ultrasound technologist: No Type of Anesthesia: General and Local RN Documented Start/Stop Times: Operation Date: 02/19/25 07:30 Case Time Into Pre-Op 02/19/25 06:12 Anesthesia Start 02/19/25 07:30 Into Room 02/19/25 07:30 Out of Pre-Op 02/19/25 07:30 Procedure Start 02/19/25 07:49 Procedure End 02/19/25 08:05 Anesthesia End 02/19/25 08:09 Out of Room 02/19/25 08:09 Procedure Start Time: 07:49 Procedure Stop Time: 08:05 Select all DRAINS/GRAFTS/IMPLANTS that apply: None Estimated Blood Loss: 10 Specimen collected: No Description of surgery: Patient brought to the operating room theater. Placed supine upon on the table. 2g iv ancef before the start of the case. MAC/LMA induced by the anesthetic team. Patient placed supine on the table all bony prominences padded. SCDs on the legs. Hand table used right side. Tourniquet applied properly padded to the upper extremity. Upper extremity prepped and draped in the usual sterile fashion with chlorhexidine-based prep solution allowing over 3 minutes drying time prior to draping. Preoperative timeout performed to confirm the site patient and the surgery. Began by elevating the limb and inflated the tourniquet to 250 mmHg. I used the [employer] center line endoscopic carpal tunnel kit technique. 5cc 0.25% bupivicaine for local anesthesia. I made a transverse 2 cm incision in line with the? transverse wrist crease.? This was in line with the fourth digit.? I carried the dissection down through skin and subcutaneous tissue achieved meticulous hemostasis. Just ulnar to palmaris tendon.? I incised the antebrachial fascia, in a U shape.? I passed sequential dilators into the carpal tunnel along the radial border of the Guyon's canal aiming for the fourth digit with the wrist in extension.? I used a synovial elevator to identify the transverse fibers of the transverse carpal tunnel ligament.? Passed the scope into the carpal tunnel. Once I had identified the full proximal and distal extent of the ligament I fully released the ligament under direct visualization by deploying the blade and slowly withdrawing the scope made sequential passes until I no longer felt tension as well as the entire extent of the ligament was released under direct visualization.? Sounded the tunnel with nicole tenotomy scissors, complete release, no bands. Nerve visualized and protected. Arthroscope light was more visible through the skin. More room for the large dilator. Release the forearm fascia also proximal. Pictures taken and saved. Wounds thoroughly irrigated.? Tourniquet let down prior to end of the case and meticulous hemostasis achieved.? Thorough irrigation.? ? Incisions closed with 3-0 ethilon, horizontal mattress. ?Then adaptic 4x4 gauze and tape. Patient woken up,? transferred off the operating room table and taken to postanesthetic care unit in stable condition. All sponge needle instrument counts were correct no complications.?Plan for the patient to be discharged home according to day surgery criteria when they are comfortable. Follow-up in the office in 2 days time. Gentle ROM finger and elbow no heavy lifting. Recommend wrist brace [address]pt 47472 Surgical Findings: as above Complications Complications: No Admit VTE Documentation VTE Present on Admission: No VTE Mechan Device Prophylaxis: SCD's VTE Pharm Prophylaxis ordered?: No Reason prophylaxis not ordered: Treatment Not Indicated
--- NOTE | 2025-02-19 08:09 | DCINST_ITS ---
Discharge Instructions Diet Discharge Diet: No restrictions Activity Discharge Activity: Return to Normal Activity Ice area for (Minutes): 10 Lifting Restrictions: no repetitive or forceful lifting or gripping Keep extremity elevated above heart level: Operative Extremity Additional Activity Instructions:: wear wrist brace 2 weeks, ok for finger ROM Dressing / Incision Call your doctor if your incision/area has: Continuous Slow Oozing, Sudden Increased Bleeding, Increased Pain/ Swelling, Increased Redness, Foul Smelling Discharge and Swelling at the incision site Call your doctor if you observe: Fever of 101 or Higher, Coldness, Increased Pain, Numbness or Tingling, Change in Color, Inability to urinate and Inability to have a bowel movement Change Dressing in: leave in place till F/U Cleanse incision/area with: Do not get Incision Wet Follow Up Care Please Follow Up With: Umair Shabazz MD When: within 2 weeks Test Results: Test results from this visit will be discussed in further detail at your follow- up appointment, if applicable. Discharge Plan Admission Attending Provider: Umair Shabazz Primary Care Provider: Hector Martínez Instructions Patient Instructions: Carpal Tunnel Release Surgery Print Language: Citizen Of [place] Discharge Orders/Prescriptions Prescriptions: No Action vitamin B complex [B Complex-Vitamin B12] Tablet 1 tab PO DAILY cholecalciferol (vitamin D3) 125 mcg (5,000 unit) capsule 125 mcg PO DAILY Referrals / Follow Up: Hector Martínez DO [Primary Care Provider, Internal Medicine] Umair Shabazz MD [Med Staff - Active Staff, Orthopedics] Disposition Disposition (needs filled in before D/C Order can be placed): Home, Self Care
--- NOTE | 2025-02-19 08:13 | PCM.POST.ANE ---
Anesthesia: Postop Eval I Current Vital Signs Temperature: 97.4 F Pulse Rate: 80 Blood Pressure: 87/67 Respiratory Rate: 18 Pulse Ox: 94 Assessment Airway patent: Yes Spontaneous unlabored respirations: Yes nausea: No Vomiting: No Anesthesia Complication: No Fluid Hydration Crystalloid volume administer (ml): 800 Total IV fluid infused: 800 Progress Note Anesthesia document: Postop Eval 1 completed: Yes
[2025-02-19] MEDS: HYDROcodone Bitartrate/Apap 5/325 Tablet PO (09:05)
--- NOTE | 2025-02-19 22:01 | POSTOPAN2_ITS ---
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 Spontaneous unlabored Yes 02/19/25 08:13 OVEN [email or web address] respirations Mental status nausea No 02/19/25 08:13 OVEN LOADER.CSIR Vomiting No 02/19/25 08:13 OVEN [email or web address].[email or web address] Anesthesia Postop Eval I: Fluid Summary Crystalloid volume administer 800 02/19/25 08:13 OVEN LOADER.CSIR (ml) Colloids volume administered ( ml) Blood Product volume administered (ml) Total IV fluid infused 800 02/19/25 08:13 OVEN LOADER.CSIR Anesthesia Postop Eval I: Summary Notes Anesthesia Complication No 02/19/25 08:13 OVEN LOADER.CSIR Anesthesia Complication Comment: Post-operative progress note Anesthesia: Postop Eval II Evaluation Mental status: Awake and Calm Pain Level: 1 nausea: No Vomiting: No Complications Anesthesia Complication: No
--- NOTE | 2025-02-19 22:01 | PCM.POSTANE2 ---
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 Spontaneous unlabored Yes 02/19/25 08:13 BUILD TECHNICIAN.CSIR respirations Mental status nausea No 02/19/25 08:13 BUILD TECHNICIAN.CSIR Vomiting No 02/19/25 08:13 BUILD [email or web address] Anesthesia Postop Eval I: Fluid Summary Crystalloid volume administer 800 02/19/25 08:13 BUILD [email or web address].CSIR (ml) Colloids volume administered ( ml) Blood Product volume administered (ml) Total IV fluid infused 800 02/19/25 08:13 BUILD [email or web address].CSIR Anesthesia Postop Eval I: Summary Notes Anesthesia Complication No 02/19/25 08:13 BUILD [email or web address].CSIR Anesthesia Complication Comment: Post-operative progress note Anesthesia: Postop Eval II Evaluation Mental status: Awake and Calm Pain Level: 1 nausea: No Vomiting: No Complications Anesthesia Complication: No
== END 2025-02-19 09:54 | disposition home or self-care (01) ==
LOC: SDC 06:02 → AC 06:03
PROVIDERS: PCP Family Medicine; Referring Provider Orthopaedic Surgery Sports Medicine; Visit Provider Orthopaedic Surgery Sports Medicine
PROC: (CPT 29848; principal; 2025-02-19 07:15)
DX: G56.01 Carpal tunnel syndrome, right upper limb (principal); M67.431 Ganglion, right wrist
CPT/HCPCS: 29848; 01810; J2405